=== PATIENT | female | born 1995 ===

== ENCOUNTER 2021-02-23 06:02 | Outpatient (REF) | payer MEDICAID, SELFPAY ==
[2021-02-23 08:33] LABS: MANUAL DIFF FLAG NO
[2021-02-23 08:44] LABS: Basophils Absolute Auto 0.1 X10*3/uL (0.0-0.2); Basophils Percent Auto 0.4 % (0-2); Eosinophils Absolute Auto 0.2 X10*3/uL (0.0-0.4); Eosinophils Percent Auto 1.8 % (0-4); Hematocrit 43.7 % (37-47); Hemoglobin 14.4 g/dl (12.0-16.0); Imm Gran Abs Auto 0.05 X10*3/uL (0.00-0.03); Imm Gran Pct Auto 0.4 % (0.0-0.4); Lymphocytes Absolute Auto 4.1 X10*3/uL (1.2-4.9); Lymphocytes Percent Auto 31.8 % (20-40); Mean Corpuscular Hemoglobin 28.4 pg (27.0-33.0); Mean Corpuscular Volume 86.2 fL (80-98); Mean Platelet Volume 9.7 fL (9.4-12.3); Monocytes Absolute Auto 0.8 X10*3/uL (0.1-1.2); Monocytes Percent Auto 6.3 % (2-11); Neutrophils Absolute Auto 7.7 X10*3/uL (2.0-8.3); Neutrophils Percent Auto 59.3 % (45-73); Platelet Count 345 X10*3/uL (160-400); Red Blood Count 5.07 X10*6/uL (4.20-5.50); Red Cell Distribution Width 13.4 % (11.0-16.0)
[2021-02-23 09:03] LABS: Alanine Aminotransferase 10 U/L (0-31); Albumin Level 3.8 g/dL (3.5-5.0); Alkaline Phosphatase 80 U/L (39-117); Anion Gap 16 (12-20); Aspartate Amino Transferase 13 U/L (5-31); Bilirubin Total 1.5 mg/dL (0.0-1.0); Blood Urea Nitrogen 10 mg/dL (9-16); Calcium 9.1 mg/dL (8.4-10.2); Carbon Dioxide 22 mmol/L (22-29); Chloride 103 mmol/L (96-108); Cholesterol 321 mg/dL; Estimated Glomerular Filt Rate > 60; Glucose Fasting 75 mg/dL (60-99); HDL Cholesterol 43 mg/dL; LDL Cholesterol Calculated 251 mg/dl; Potassium 3.8 mmol/L (3.3-5.1); Sodium 137 mmol/L (135-145); Total Protein 6.8 g/dL (6.5-8.0); Triglycerides 135 mg/dL
[2021-02-23 09:25] LABS: Free T4 (Free Thyroxine) 1.11 ng/dL (0.71-1.85); Thyroid Stimulating Hormone 1.89 uIU/mL (0.32-4.0)
== END 2021-02-23 06:03 | disposition home or self-care (01) ==
LOC: HO.LAB 06:02
PROVIDERS: Visit Provider Internal Medicine
DX: E78.00 Pure hypercholesterolemia, unspecified (principal); R63.5 Abnormal weight gain; J30.1 Allergic rhinitis due to pollen; E55.9 Vitamin D deficiency, unspecified
CPT/HCPCS: 36415; 80053; 80061; 82306; 84439; 84443; 85025

== ENCOUNTER 2021-12-01 06:39 | Outpatient (REF) | payer MEDICAID, SELFPAY ==
[2021-12-01 06:52] LABS: MANUAL DIFF FLAG NO
[2021-12-01 07:21] LABS: Basophils Absolute Auto 0.1 X10*3/uL (0.0-0.2); Basophils Percent Auto 0.4 % (0-2); Eosinophils Absolute Auto 0.3 X10*3/uL (0.0-0.4); Eosinophils Percent Auto 2.4 % (0-4); Hematocrit 44.2 % (37.0-47.0); Hemoglobin 14.5 g/dl (12.0-16.0); Imm Gran Abs Auto 0.06 X10*3/uL (0.00-0.03); Imm Gran Pct Auto 0.4 % (0.0-0.4); Lymphocytes Absolute Auto 4.4 X10*3/uL (1.2-4.9); Lymphocytes Percent Auto 31.3 % (20-40); Mean Corpuscular HGB Conc 32.8 g/dl (31.0-35.0); Mean Corpuscular Hemoglobin 27.9 pg (27.0-33.0); Mean Corpuscular Volume 85.2 fL (80.0-98.0); Mean Platelet Volume 9.7 fL (9.4-12.3); Neutrophils Absolute Auto 8.2 x10*3/uL (2.0-8.3); Neutrophils Percent Auto 58.5 % (45-73); Platelet Count 362 X10*3/uL (160-400); Red Blood Count 5.19 X10*6/uL (4.20-5.50); Red Cell Distribution Width 13.7 % (11.0-16.0); White Blood Count 13.9 X10*3/uL (4.8-10.8)
[2021-12-01 07:48] LABS: Alanine Aminotransferase 12 U/L (0-31); Albumin Level 3.8 g/dL (3.5-5.0); Alkaline Phosphatase 70 U/L (39-117); Anion Gap 12 (12-20); Aspartate Amino Transferase 12 U/L (5-31); Bilirubin Total 1.1 mg/dL (0.0-1.0); Blood Urea Nitrogen 15 mg/dL (9-16); Calcium 9.4 mg/dL (8.4-10.2); Carbon Dioxide 25 mmol/L (22-29); Chloride 103 mmol/L (96-108); Cholesterol 313 mg/dL; Estimated Glomerular Filt Rate > 60; Glucose Fasting 91 mg/dL (60-99); HDL Cholesterol 41 mg/dL; LDL Cholesterol Calculated 238 mg/dl; Potassium 4.1 mmol/L (3.3-5.1); Sodium 136 mmol/L (135-145); Total Protein 6.8 g/dL (6.5-8.0); Triglycerides 171 mg/dL
[2021-12-01 08:09] LABS: Thyroid Stimulating Hormone 1.79 uIU/mL (0.32-4.0)
[2021-12-01 08:46] LABS: Appearance Urine CLEAR; Color Urine YELLOW; Glucose Urine UA NEG (NEG); Leukocyte Esterase Urine NEG (NEG); Nitrite Urine NEG (NEG); Specific Gravity - Urine >= 1.030 (1.005-1.025); Urine Blood NEG (NEG); Urine Ketones 5 MG/DL (NEG); Urine Protein NEG (NEG-TRACE)
== END 2021-12-01 06:40 | disposition home or self-care (01) ==
LOC: HO.LAB 06:39
PROVIDERS: PCP Internal Medicine; Visit Provider Internal Medicine
DX: E78.00 Pure hypercholesterolemia, unspecified (principal); E55.9 Vitamin D deficiency, unspecified
CPT/HCPCS: 36415; 80053; 80061; 81003; 82306; 84443; 85025

== ENCOUNTER 2022-04-13 16:08 | Outpatient (REF) | payer MEDICAID, SELFPAY ==
[2022-04-13 16:23] LABS: MANUAL DIFF FLAG NO
[2022-04-13 17:30] LABS: Basophils Absolute Auto 0.1 X10*3/uL (0.0-0.2); Basophils Percent Auto 0.5 % (0-2); Eosinophils Absolute Auto 0.2 X10*3/uL (0.0-0.4); Eosinophils Percent Auto 1.7 % (0-4); Hematocrit 45.9 % (37.0-47.0); Hemoglobin 15.1 g/dl (12.0-16.0); Imm Gran Abs Auto 0.06 X10*3/uL (0.00-0.03); Imm Gran Pct Auto 0.5 % (0.0-0.4); Lymphocytes Absolute Auto 4.1 X10*3/uL (1.2-4.9); Lymphocytes Percent Auto 31.1 % (20-40); Mean Corpuscular HGB Conc 32.9 g/dl (31.0-35.0); Mean Corpuscular Hemoglobin 28.1 pg (27.0-33.0); Mean Corpuscular Volume 85.5 fL (80.0-98.0); Mean Platelet Volume 9.7 fL (9.4-12.3); Monocytes Absolute Auto 0.8 X10*3/uL (0.1-1.2); Monocytes Percent Auto 6.4 % (2-11); Neutrophils Absolute Auto 7.9 x10*3/uL (2.0-8.3); Neutrophils Percent Auto 59.8 % (45-73); Platelet Count 403 X10*3/uL (160-400); Red Blood Count 5.37 X10*6/uL (4.20-5.50); Red Cell Distribution Width 13.8 % (11.0-16.0); White Blood Count 13.1 X10*3/uL (4.8-10.8)
[2022-04-13 17:41] LABS: Appearance Urine CLEAR; Color Urine YELLOW; Glucose Urine UA NEG (NEG); Leukocyte Esterase Urine 2+ (NEG); Nitrite Urine NEG (NEG); Specific Gravity - Urine >= 1.030 (1.005-1.025); Urine Blood NEG (NEG); Urine Ketones NEG (NEG); Urine Protein NEG (NEG-TRACE)
[2022-04-13 17:58] LABS: Alanine Aminotransferase 21 U/L (0-31); Albumin Level 3.7 g/dL (3.5-5.0); Alkaline Phosphatase 84 U/L (39-117); Anion Gap 14 (12-20); Aspartate Amino Transferase 15 U/L (5-31); Bilirubin Total 1.2 mg/dL (0.0-1.0); Blood Urea Nitrogen 9 mg/dL (9-16); C Reactive Protein 0.39 mg/dL (< or = 0.50); Calcium 9.7 mg/dL (8.4-10.2); Carbon Dioxide 26 mmol/L (22-29); Chloride 104 mmol/L (96-108); Estimated Glomerular Filt Rate > 60; Glucose Random 95 mg/dL (60-115); Lipase 7 U/L (8-78); Potassium 4.7 mmol/L (3.3-5.1); Sodium 139 mmol/L (135-145); Total Protein 6.8 g/dL (6.5-8.0)
[2022-04-13 18:01] LABS: Bacteria Urine 3+ /LPF; RBC Urine 0 /HPF (0); Squamous Epithelial Cell Urine 3+ /LPF
[2022-04-13 18:07] LABS: Influenza A PCR NEGATIVE (Negative); Influenza B PCR NEGATIVE (Negative); Resp Syncy Virus RNA Qual PCR NEGATIVE (Negative); SARS COV2 PCR INHOUSE NEGATIVE (Negative)
== END 2022-04-13 16:09 | disposition home or self-care (01) ==
LOC: HO.LAB 16:08
PROVIDERS: PCP Internal Medicine; Visit Provider Internal Medicine
DX: Z20.822 Contact with and (suspected) exposure to COVID-19 (principal); B34.9 Viral infection, unspecified; E78.00 Pure hypercholesterolemia, unspecified; R21 Rash and other nonspecific skin eruption; R25.2 Cramp and spasm; R10.9 Unspecified abdominal pain
CPT/HCPCS: 0241U; 80053; 81001; 83690; 85025; 86140; 87086

== ENCOUNTER 2022-04-17 06:36 | Outpatient (REF) | payer MEDICAID, SELFPAY ==
[2022-04-17 09:10] LABS: Appearance Urine CLOUDY; Color Urine YELLOW; Glucose Urine UA NEG (NEG); Leukocyte Esterase Urine 2+ (NEG); Nitrite Urine NEG (NEG); PH 5.5 (5.0-8.0); Specific Gravity - Urine >= 1.030 (1.005-1.025); UACC Culture Trigger YES; Urine Blood NEG (NEG); Urine Ketones NEG (NEG); Urine Protein TRACE MG/DL (NEG-TRACE)
[2022-04-17 09:29] LABS: RBC Urine 0 /HPF (0)
[2022-04-17 09:30] LABS: Amorphous Sediment Urine 1+ /LPF; Bacteria Urine 3+ /LPF; Squamous Epithelial Cell Urine 3+ /LPF
== END 2022-04-17 06:37 | disposition home or self-care (01) ==
LOC: HO.LAB 06:36
PROVIDERS: PCP Internal Medicine; Visit Provider Internal Medicine
DX: R30.0 Dysuria (principal)
CPT/HCPCS: 81001; 87086

== ENCOUNTER 2022-06-20 14:40 | Outpatient (REF) | payer MEDICAID, SELFPAY ==
[2022-06-20 16:05] LABS: Appearance Urine Cloudy; Color Urine Dark Yellow; Glucose Urine UA Negative (Negative); Leukocyte Esterase Urine Moderate (2+) (Negative); Nitrite Urine Negative (Negative); PH 5.5 (5.0-9.0); Specific Gravity - Urine >= 1.030 (1.005-1.025); Urine Blood Moderate (2+) (Negative); Urine Ketones Trace mg/dL (Negative); Urine Protein Trace mg/dL (Neg-Trace)
[2022-06-20 16:26] LABS: Bacteria Urine 3+ (None Seen); Hyaline Casts Urine 0-2 /LPF (0-2); WBC Urine 0-5 /HPF (0-5)
== END 2022-06-20 14:41 | disposition home or self-care (01) ==
LOC: HO.LAB 14:40
PROVIDERS: PCP Internal Medicine; Visit Provider Internal Medicine
DX: R30.0 Dysuria (principal)
CPT/HCPCS: 81001; 87086; 87088; 87186

== ENCOUNTER 2022-06-22 10:55 | Outpatient (REF) | payer MEDICAID, SELFPAY ==
--- NOTE | ~2022-06-22 | US_ITS ---
EXAMINATION: US RETROPERITONEAL COMPLETE (RENAL) CLINICAL INFORMATION: Right kidney pain. Right lower quadrant pain. COMPARISON: None TECHNIQUE: Real-time imaging of the kidneys and bladder. FINDINGS: RIGHT KIDNEY: 9.7 x 3.4 x 5.4 cm (SAG x AP x TRV). The kidney is normal in size, contour, and echogenicity. Renal cortical thickness is normal. No calculi or focal parenchymal lesions. No hydronephrosis. LEFT KIDNEY: 10.7 x 5.0 x 6.2 cm (SAG x AP x TRV). The kidney is normal in size, contour, and echogenicity. Renal cortical thickness is normal. No calculi or focal parenchymal lesions. No hydronephrosis. BLADDER: Well distended and normal. Bilateral ureteral jets are demonstrated. Prevoid bladder volume is 181 mL. Postvoid bladder volume is 8.1 mL. ADDITIONAL FINDINGS: Incidental finding of echogenic gallstone with acoustic shadowing. CBD is normal measuring 0.33 cm. The gallbladder wall thickness is 0.27 cm. US/US retroperitoneal comp IMPRESSION: Unremarkable renal ultrasound. Incidental finding of echogenic gallstone with minimal wall thickening.
== END 2022-06-22 10:56 | disposition home or self-care (01) ==
LOC: HO.HMGCX 10:55
PROVIDERS: PCP Internal Medicine; Visit Provider Internal Medicine
DX: R10.31 Right lower quadrant pain (principal)
CPT/HCPCS: 76770

== ENCOUNTER 2022-08-10 16:37 | Emergency (ER) | payer MEDICAID, SELFPAY ==
[2022-08-10 17:11] VITALS: BP 152/80; PULSE 69; RESP 18; TEMP 37; O2SAT 100; BMI 38.6
[2022-08-11 02:30] VITALS: BP 139/92; PULSE 66; RESP 16; TEMP 36.8; O2SAT 100
[2022-08-11 02:42] LABS: Appearance Urine Cloudy; Color Urine Dark Yellow; Glucose Urine UA Negative (Negative); Leukocyte Esterase Urine Trace (Negative); Nitrite Urine Negative (Negative); PH 5.5 (5.0-9.0); Specific Gravity - Urine >= 1.030 (1.005-1.025); UMIC TRIGGER UACC YES; Urine Blood Large (3+) (Negative); Urine Ketones Trace mg/dL (Negative); Urine Protein 30 (1+) mg/dL (Neg-Trace)
[2022-08-11 02:45] LABS: UPreg QC Valid YES; Urine Pregnancy NEGATIVE (NEGATIVE)
[2022-08-11 02:47] LABS: Bacteria Urine Trace (None Seen); Hyaline Casts Urine 0-2 /LPF (0-2); UACC Culture Trigger YES
[2022-08-11 02:48] LABS: MANUAL DIFF FLAG NO
[2022-08-11 02:50] LABS: Basophils Absolute Auto 0.1 X10*3/uL (0.0-0.2); Basophils Percent Auto 0.5 % (0-2); Eosinophils Absolute Auto 0.3 X10*3/uL (0.0-0.4); Eosinophils Percent Auto 3.6 % (0-4); Hematocrit 43.6 % (37.0-47.0); Hemoglobin 14.1 g/dl (12.0-16.0); Imm Gran Abs Auto 0.03 X10*3/uL (0.00-0.03); Imm Gran Pct Auto 0.3 % (0.0-0.4); Lymphocytes Absolute Auto 2.7 X10*3/uL (1.2-4.9); Mean Corpuscular HGB Conc 32.3 g/dl (31.0-35.0); Mean Corpuscular Hemoglobin 28.1 pg (27.0-33.0); Mean Corpuscular Volume 86.9 fL (80.0-98.0); Mean Platelet Volume 9.3 fL (9.4-12.3); Monocytes Absolute Auto 0.7 X10*3/uL (0.1-1.2); Monocytes Percent Auto 7.4 % (2-11); Neutrophils Absolute Auto 5.5 x10*3/uL (2.0-8.3); Neutrophils Percent Auto 59.2 % (45-73); Platelet Count 321 X10*3/uL (160-400); Red Blood Count 5.02 X10*6/uL (4.20-5.50); Red Cell Distribution Width 14.5 % (11.0-16.0); White Blood Count 9.2 X10*3/uL (4.8-10.8)
[2022-08-11 03:14] LABS: Alanine Aminotransferase 15 U/L (0-31); Albumin Level 3.6 g/dL (3.5-5.0); Alkaline Phosphatase 72 U/L (39-117); Anion Gap 16 (12-20); Aspartate Amino Transferase 13 U/L (5-31); Bilirubin Direct 0.4 mg/dL (0.0-0.5); Bilirubin Total 1.5 mg/dL (0.0-1.0); Blood Urea Nitrogen 11 mg/dL (9-16); Calcium 9.1 mg/dL (8.4-10.2); Carbon Dioxide 23 mmol/L (22-29); Chloride 104 mmol/L (96-108); Creatinine Clr Calc Pharmacy 143.6; Estimated Glomerular Filt Rate > 60; Glucose Random 104 mg/dL (60-115); Lipase < 4 U/L (8-78); Potassium 3.7 mmol/L (3.3-5.1); Sodium 139 mmol/L (135-145); Total Protein 6.6 g/dL (6.5-8.0)
[2022-08-11 04:33] VITALS: BP 137/91; PULSE 71; RESP 16; TEMP 36.9; O2SAT 99
--- NOTE | 2022-08-11 05:19 | ED_ITS ---
HPI - Female Genitourinary General Chief complaint: Urogenital-Female Stated complaint: Uterine prolapse Time Seen by Provider: 08/11/22 01:57 Source: patient Mode of arrival: ambulatory History of Present Illness HPI Narrative: 27-year-old female currently menstruating presents with concerns when she was standing in the shower she felt a ?mass? it is and become very concerned and thought that it was her uterus that was falling out. She denies any fever, chills and has had 1 child. Related Data Allergies Allergy/AdvReac Type Severity Reaction Status Date / Time cortisone Allergy Unknown Uncoded 11/27/18 00:00 flu shot Allergy Unknown Uncoded 11/27/18 00:00 latex Allergy Unknown Uncoded 11/27/18 00:00 Review of Systems Review of Systems: Pertinent positives and negatives as stated in HPI 10 point review of systems is otherwise negative. [facility] Past Medical History Source: nursing notes reviewed Social History Social History Advance Directives: No Advance Directives Information Provided: No Physical Exam Vital Signs: Vital Signs: Last Vital Signs Temp 98.4 F 08/11/22 04:33 Pulse 71 08/11/22 04:33 Resp 16 08/11/22 04:33 BP 137/91 H 08/11/22 04:33 Pulse Ox 99 08/11/22 04:33 O2 Del Method 08/11/22 04:33 BMI result Body Mass Index 38.6 VITAL SIGNS: Reviewed. GENERAL: Well developed, well nourished, in no acute distress. HEAD: Normocephalic/atraumatic EYES: PERRLA, EOMI EARS: Ext canals without abnormality OROPHARYNX: no oral lesions noted, posterior pharynx clear LUNGS: Normal breath sounds. No adventitious sounds or accessory muscle use. SpO2<99> CARDIOVASCULAR: Regular rate and rhythm without noted murmurs ABDOMEN: Soft, non-tender, non-distended with bowel sounds. PELVIC: There are no abnormal protrusions, on placement of speculum no cystocele rectocele is appreciated and cervix was well-visualized in anatomical location. MUSCULOSKELETAL: No tenderness, deformities, or effusions noted on gross inspection. EXTREMITIES: No cyanosis, clubbing or edema. SKIN: Inspection of the skin reveals no rashes NEUROLOGIC: Alert and oriented x 4. Strength and sensation to light touch were grossly intact x 4. Course Course Course Narrative: 27-year-old female with history and clinical presentation most consistent with likely grade 1 cystocele as there were no findings on the pelvic exam. On review of all investigations there were no acute findings and patient was reassured and provided with a referral to follow-up with gynecology. She is otherwise discharged home in stable condition. MDM - Female Genitourinary Lab Data Result diagrams: 08/11/22 02:44 08/11/22 02:44 Labs: Lab Results 08/11/22 08/11/22 08/11/22 Range/Units 02:33 02:33 02:44 WBC 9.2 (4.8-10.8) X10*3/uL RBC 5.02 (4.20-5.50) X10*6/uL Hgb 14.1 (12.0-16.0) g/dl Hct 43.6 (37.0-47.0) % MCV 86.9 (80.0-98.0) fL MCH 28.1 (27.0-33.0) pg MCHC 32.3 (31.0-35.0) g/dl RDW 14.5 (11.0-16.0) % Plt Count 321 (160-400) X10*3/uL MPV 9.3 L (9.4-12.3) fL Immature Gran % (Auto) 0.3 (0.0-0.4) % Neut % (Auto) 59.2 (45-73) % Lymph % (Auto) 29.0 (20-40) % [place] % (Auto) 7.4 (2-11) % Eos % (Auto) 3.6 (0-4) % Baso % (Auto) 0.5 (0-2) % Lymph # (Auto) 2.7 (1.2-4.9) X10*3/uL [place] # (Auto) 0.7 (0.1-1.2) X10*3/uL Eos # (Auto) 0.3 (0.0-0.4) X10*3/uL Baso # (Auto) 0.1 (0.0-0.2) X10*3/uL Abs Immat Gran (auto) 0.03 (0.00-0.03) X10*3/uL Absolute Neuts (auto) 5.5 (2.0-8.3) x10*3/uL Absolute Nucleated RBC 0.000 (0.0-0.012) X10*3/uL Nucleated RBC % (auto) 0.0 (0.0-0.2) /100WBC Sodium (135-145) mmol/L Potassium (3.3-5.1) mmol/L Chloride (96-108) mmol/L Carbon Dioxide (22-29) mmol/L Anion Gap (12-20) BUN (9-16) mg/dL Creatinine (0.5-1.4) mg/dL Estim Creat Clear Calc Estimated GFR Random Glucose (60-115) mg/dL Calcium (8.4-10.2) mg/dL Total Bilirubin (0.0-1.0) mg/dL Direct Bilirubin (0.0-0.5) mg/dL AST (5-31) U/L ALT (0-31) U/L Alkaline Phosphatase (39-117) U/L Total Protein (6.5-8.0) g/dL Albumin (3.5-5.0) g/dL Lipase (8-78) U/L Urine Color Dark Yellow Urine Appearance Cloudy Urine pH 5.5 (5.0-9.0) Ur Specific [place] >= 1.030 H (1.005-1.025) Urine Protein 30 (1+) H (Neg-Trace) mg/dL Urine Glucose (UA) Negative (Negative) mg/dL Urine Ketones Trace (Negative) mg/dL Urine Blood Large (3+) H (Negative) Urine Nitrite Negative (Negative) Ur Leukocyte Esterase Trace H (Negative) Urine RBC 6-10 H (0-2) /HPF Urine WBC 6-10 H (0-5) /HPF Ur Squamous Epith Cells 11-20 (0-2) /HPF Urine Bacteria Trace (None Seen) Hyaline Casts 0-2 (0-2) /LPF Urine Test NEGATIVE (NEGATIVE) 08/11/22 Range/Units 02:44 WBC (4.8-10.8) X10*3/uL RBC (4.20-5.50) X10*6/uL Hgb (12.0-16.0) g/dl Hct (37.0-47.0) % MCV (80.0-98.0) fL MCH (27.0-33.0) pg MCHC (31.0-35.0) g/dl RDW (11.0-16.0) % Plt Count (160-400) X10*3/uL MPV (9.4-12.3) fL Immature Gran % (Auto) (0.0-0.4) % Neut % (Auto) (45-73) % Lymph % (Auto) (20-40) % [place] % (Auto) (2-11) % Eos % (Auto) (0-4) % Baso % (Auto) (0-2) % Lymph # (Auto) (1.2-4.9) X10*3/uL [place] # (Auto) (0.1-1.2) X10*3/uL Eos # (Auto) (0.0-0.4) X10*3/uL Baso # (Auto) (0.0-0.2) X10*3/uL Abs Immat Gran (auto) (0.00-0.03) X10*3/uL Absolute Neuts (auto) (2.0-8.3) x10*3/uL Absolute Nucleated RBC (0.0-0.012) X10*3/uL Nucleated RBC % (auto) (0.0-0.2) /100WBC Sodium 139 (135-145) mmol/L Potassium 3.7 D (3.3-5.1) mmol/L Chloride 104 (96-108) mmol/L Carbon Dioxide 23 (22-29) mmol/L Anion Gap 16 (12-20) BUN 11 (9-16) mg/dL Creatinine 0.69 (0.5-1.4) mg/dL Estim Creat Clear Calc 143.6 Estimated GFR > 60 Random Glucose 104 (60-115) mg/dL Calcium 9.1 D (8.4-10.2) mg/dL Total Bilirubin 1.5 H (0.0-1.0) mg/dL Direct Bilirubin 0.4 (0.0-0.5) mg/dL AST 13 (5-31) U/L ALT 15 (0-31) U/L Alkaline Phosphatase 72 (39-117) U/L Total Protein 6.6 (6.5-8.0) g/dL Albumin 3.6 (3.5-5.0) g/dL Lipase < 4 L (8-78) U/L Urine Color Urine Appearance Urine pH (5.0-9.0) Ur Specific [place] (1.005-1.025) Urine Protein (Neg-Trace) mg/dL Urine Glucose (UA) (Negative) mg/dL Urine Ketones (Negative) mg/dL Urine Blood (Negative) Urine Nitrite (Negative) Ur Leukocyte Esterase (Negative) Urine RBC (0-2) /HPF Urine WBC (0-5) /HPF Ur Squamous Epith Cells (0-2) /HPF Urine Bacteria (None Seen) Hyaline Casts (0-2) /LPF Urine Test (NEGATIVE) Discharge Plan Discharge Clinical Impression: Cystocele Patient Disposition: Home, Self-Care Instructions: Cystocele (ED) Additional Instructions: You have been provided with a referral to follow-up with gynecology. Return to the ER for worsening symptoms. Referrals: Shaw Rushing MD [Primary Care Provider] - Saad Mcclelland MD [Physician] - (Patient with possible cystocele)
== END 2022-08-11 06:10 | disposition home or self-care (01) ==
PROVIDERS: Emergency Provider Student in an Organized Health Care Education/Training Program; PCP Internal Medicine
DX: N81.10 Cystocele, unspecified (principal)
CPT/HCPCS: 36415; 80053; 81001; 81025; 82248; 83690; 85025; 87086; 99283

== ENCOUNTER 2022-08-21 13:30 | Outpatient (REF) | payer BC, MEDICAID, SELFPAY ==
[2022-08-22 13:07] LABS: BV Int Neg Control Negative (Negative); BV Int Pos Control Positive (Positive)
[2022-08-22 14:31] LABS: CT PCR INVALID (Not Detect.)
[2022-08-22 14:32] LABS: NG PCR INVALID (Not Detect.)
== END 2022-08-21 13:31 | disposition home or self-care (01) ==
LOC: HO.LNP 13:30
PROVIDERS: Visit Provider Advanced Practice Midwife
DX: Z12.4 Encounter for screening for malignant neoplasm of cervix (principal); Z11.3 Encounter for screening for infections with a predominantly sexual mode of transmission; N89.8 Other specified noninflammatory disorders of vagina
CPT/HCPCS: 87480; 87491; 87510; 87591; 87660; 88142

== ENCOUNTER 2022-09-21 15:25 | Outpatient (REF) | payer MEDICAID, SELFPAY ==
--- NOTE | ~2022-09-21 | US_ITS ---
EXAMINATION: US PELVIS CLINICAL INFORMATION: Pelvic and perineal pain. COMPARISON : None. TECHNIQUE: Ultrasound of the pelvis is performed using both transabdominal and transvaginal transducers along with Doppler. Transvaginal imaging is performed due to inadequate visualization transabdominally. FINDINGS: Uterus: The uterus is anteverted and measures 7.10 x 3.3 x 3.7 cm. The double wall endometrial thickness is 0.62 cm. The uterus is smooth in contour and has normal myometrial echogenicity. No visible fibroid. Small nabothian cysts seen in the cervix. Adnexa: Both ovaries are visualized. There is normal color flow to the adnexa. There is no ovarian torsion. There is no pelvic ascites or fluid collection. Right ovary measures 3.64 x 2.27 x 2.47 cm and volume 10.69 mL. There is a complex lesion measuring 1.7 x 1.4 x 1.5 cm, likely corpus luteal cyst. There is small amount of free fluid surrounding the right ovary. Left ovary measures 2.61 x 1.861 98 cm and volume 5.03 seen. No focal lesion seen. There is no free fluid in the cul-de-sac. US/US pelvic and transvaginal IMPRESSION: 1. Small corpus luteal cyst right ovary. 2. The left ovary and uterus is unremarkable. 3. There is small amount of free fluid surrounding the right ovary.
== END 2022-09-21 15:26 | disposition home or self-care (01) ==
LOC: HO.HMGCX 15:25
PROVIDERS: PCP Internal Medicine; Visit Provider Advanced Practice Midwife
DX: R10.2 Pelvic and perineal pain (principal)
CPT/HCPCS: 76830; 76856

== ENCOUNTER 2022-10-09 11:24 | Outpatient (REF) | payer MEDICAID, SELFPAY ==
[2022-10-10 06:35] LABS: CT PCR NOT DETECTED (Not Detect.); NG PCR NOT DETECTED (Not Detect.)
== END 2022-10-09 11:25 | disposition home or self-care (01) ==
LOC: HO.LNP 11:24
PROVIDERS: PCP Internal Medicine; Visit Provider Advanced Practice Midwife
DX: N83.291 Other ovarian cyst, right side (principal); R39.15 Urgency of urination; N39.3 Stress incontinence (female) (male); Z71.2 Person consulting for explanation of examination or test findings; Z20.2 Contact with and (suspected) exposure to infections with a predominantly sexual mode of transmission
CPT/HCPCS: 87491; 87591; 99212

== ENCOUNTER 2022-10-31 15:54 | Outpatient (REF) | payer MEDICAID, SELFPAY ==
--- NOTE | ~2022-10-31 | US_ITS ---
EXAMINATION: US THYROID CLINICAL INFORMATION: Localized swelling. COMPARISON: None. TECHNIQUE: Linear transducer grayscale and color Doppler examination with attention to the region of the thyroid. FINDINGS: SIZE: Measurements of the thyroid lobes and nodules are given in sagittal, anteroposterior and transverse dimensions respectively. Right Thyroid Lobe: 5.5 x 2.1 x 1.6 cm, volume 10.0 mL. Parenchyma: The gland echotexture is heterogeneous. Thyroid vascularity is increased. Left Thyroid Lobe: 7.0 x 3.2 x 1.9 cm, volume 22 mL. Parenchyma: The gland echotexture is heterogeneous. Thyroid vascularity is increased. Isthmus: 0.5 cm in maximum AP dimension. Estimated total number of nodules greater than or equal to 1 cm: 5. Needle Loom Setter nodules are described as follows: 1. Location: Isthmus. Size: 3.2 x 1.9 x 3.2 cm, volume 10.2 mL. Nodule characteristics: Composition: Solid (2). Echogenicity: Isoechoic (1). Shape: Not taller than wide (0). Margins: Smooth (0). Echogenic Foci: None (0). ACR TI-RADS total points: 3. ACR TI-RADS category: 3. 2. Location: Right inferior. Size: 1.0 x 0.7 x 0.7 cm, volume 0.2 mL. Nodule characteristics: Composition: Solid/almost completely solid (2). Echogenicity: Isoechoic (1). Shape: Not taller than wide (0). Margins: Lobulated (2). Echogenic Foci: None (0). ACR TI-RADS total points: 5. ACR TI-RADS category: 4. 3. Location: Right medial inferior. Size: 1.6 x 1.1 x 1.5 cm, volume 1.4 mL. Nodule characteristics: Composition: Solid (2). Echogenicity: Isoechoic (1). Shape: Not taller than wide (0). Margins: Ill-defined (0). Echogenic Foci: None (0). ACR TI-RADS total points: 3 ACR TI-RADS category: 3 4. Location: Left superior. Size: 1.3 x 0.9 x 1.5 cm, volume 0.9 mL. Nodule characteristics: Composition: Solid (2). Echogenicity: Isoechoic (1). Shape: Not taller than wide (0). Margins: Lobulated (2). Echogenic Foci: None (0). ACR TI-RADS total points: 5. ACR TI-RADS category: 4. 5. Location: Left inferior. Size: 4.3 x 2.7 x 3.1 cm, volume 18.3 mL. Nodule characteristics: Composition: Solid (2). Echogenicity: Isoechoic (1). Shape: Not taller than wide (0). Margins: Ill-defined (0). Echogenic Foci: Macrocalcifications (1). ACR TI-RADS total points: 4. ACR TI-RADS category: 4. NODES: No lymphadenopathy is seen in the tissue surrounding the thyroid gland. ADDITIONAL FINDINGS: There is isoechoic to hypoechoic lesion inferior to right thyroid lobe with minimal vascularity measuring 1.0 x 0.5 x 0.6 cm. US/US thyroid IMPRESSION: 1. Multiple bilateral thyroid nodules. The largest nodule measures 4.3 cm in the lower pole left lobe. Based on TI-RADS scale, the largest 2 nodules in the isthmus and left lobe lower pole nodule should be biopsied. 2. TR1 (0 point) and TR 2 (2 points): 3. TR4 (4-6 points): FNA if more than or equal to 1.5 cm in maximum dimension, followup ultrasound in 1, 2, 3 and 5 years if 1 to 1.4 cm in maximum dimension. 4. TR5 (more than or equal to 7 points): FNA if more than or equal to 1 cm in maximum dimension, followup ultrasound every year for 5 years if 0.5 to 0.9 cm in maximum dimension.
== END 2022-10-31 15:55 | disposition home or self-care (01) ==
LOC: HO.US 15:54
PROVIDERS: PCP Internal Medicine; Visit Provider Internal Medicine
DX: R22.1 Localized swelling, mass and lump, neck (principal)
CPT/HCPCS: 76536

== ENCOUNTER → 2022-11-28 09:58 | Outpatient (BNVA) | payer MEDICAID, SELFPAY | PROVIDERS: PCP Internal Medicine; Visit Provider Internal Medicine | DX: E04.2 Nontoxic multinodular goiter (principal); E78.5 Hyperlipidemia, unspecified; E55.9 Vitamin D deficiency, unspecified | CPT/HCPCS: 99202 ==

== ENCOUNTER 2022-11-29 08:01 | Outpatient (REF) | payer MEDICAID, SELFPAY ==
[2022-11-29 09:47] LABS: Alanine Aminotransferase 18 U/L (0-31); Albumin Level 3.4 g/dL (3.5-5.0); Alkaline Phosphatase 62 U/L (39-117); Anion Gap 14 (12-20); Aspartate Amino Transferase 17 U/L (5-31); Bilirubin Total 1.4 mg/dL (0.0-1.0); Blood Urea Nitrogen 10 mg/dL (9-16); Calcium 9.1 mg/dL (8.4-10.2); Carbon Dioxide 22 mmol/L (22-29); Chloride 107 mmol/L (96-108); Cholesterol 317 mg/dL; Estimated Glomerular Filt Rate > 60; Glucose Random 106 mg/dL (60-115); HDL Cholesterol 40 mg/dL; LDL Cholesterol Calculated 241 mg/dl; Phosphorus 2.7 mg/dL (2.7-4.5); Potassium 4.4 mmol/L (3.3-5.1); Sodium 139 mmol/L (135-145); Total Protein 6.2 g/dL (6.5-8.0); Triglycerides 183 mg/dL
[2022-11-29 09:52] LABS: Free T4 (Free Thyroxine) 0.99 ng/dL (0.71-1.85); Thyroid Stimulating Hormone 0.98 uIU/mL (0.32-4.0); Vitamin D 25-OH Total 30.4 ng/mL (>30)
[2022-11-30 10:04] LABS: BV Int Neg Control Negative (Negative); BV Int Pos Control Positive (Positive)
[2022-12-03 13:14] LABS: PTHI 36 pg/mL (16-77)
[2022-12-06 20:59] LABS: Apolipoprotein B 187 mg/dL (<90); LDL Cholesterol Direct 264 mg/dL (<100); Triiodothyronine T3 Total 149 ng/dL (76-181)
== END 2022-11-29 08:02 | disposition home or self-care (01) ==
LOC: HO.LAB 08:01
PROVIDERS: Urology; PCP Internal Medicine; Visit Provider Internal Medicine
DX: E04.2 Nontoxic multinodular goiter (principal); E55.9 Vitamin D deficiency, unspecified; E78.5 Hyperlipidemia, unspecified; R32 Unspecified urinary incontinence; R35.0 Frequency of micturition; N39.0 Urinary tract infection, site not specified; N76.0 Acute vaginitis; N81.89 Other female genital prolapse
CPT/HCPCS: 36415; 51701; 51798; 80053; 80061; 82172; 82306; 83721; 83970; 84100; 84439; 84443; 84480; 87480; 87510; 87660; 99202

== ENCOUNTER 2022-12-13 16:09 | Outpatient (REF) | payer MEDICAID, SELFPAY ==
--- NOTE | ~2022-12-13 | US_ITS ---
EXAMINATION: US PELVIS CLINICAL INFORMATION: Right-sided ovarian cyst. COMPARISON: Pelvic ultrasound 09/21/2022. TECHNIQUE: Ultrasound of the pelvis is performed using both transabdominal and transvaginal transducers along with Doppler. Transvaginal imaging is performed due to inadequate visualization transabdominally. FINDINGS: UTERUS: The uterus is anteverted and measures 6.9 x 3.0 x 4.0 cm. The double wall endometrial thickness is 8 mm. The uterus is smooth in contour and has normal myometrial echogenicity. No visible fibroid. Nabothian cysts are present in the cervix. ADNEXA: Both ovaries are visualized. There is normal color flow to the adnexa. There is no ovarian torsion. There is no pelvic ascites or fluid collection. Right ovary measures 1.9 x 1.7 x 2.1 cm for a volume of 3.6 mL. Left ovary measures 2.1 x 1.9 x 2.3 cm for a volume of 4.8 mL and contains a normal-appearing 1.1 x 1.3 x 1.3 cm corpus luteum cyst. US/US pelvic and transvaginal IMPRESSION: Negative exam.
== END 2022-12-13 16:10 | disposition home or self-care (01) ==
LOC: HO.US 16:09
PROVIDERS: Visit Provider Advanced Practice Midwife
DX: N83.291 Other ovarian cyst, right side (principal)
CPT/HCPCS: 76830; 76856

== ENCOUNTER 2022-12-14 10:01 | Outpatient (REF) | payer MEDICAID, SELFPAY ==
--- NOTE | ~2022-12-14 | CT_ITS ---
EXAMINATION: CT SOFT TISSUE NECK WITHOUT CONTRAST CLINICAL INFORMATION: Nontoxic, multinodular goiter. COMPARISON: Thyroid ultrasound from 10/31/2022. TECHNIQUE: Multidetector helical imaging was performed in the axial plane without intravenous contrast. Multiple axial reformats and coronal/sagittal reconstructions were created the technologist workstation for review. This CT examination was performed using dose optimization techniques as appropriate, variously including the following: *Automated exposure control. *Adjustment of mA and/or kV according to patient size (this includes techniques or standardized protocols for targeted exams where dose is matched to indication/reason for exam; i.e. extremities or head). *Use of iterative reconstruction technique. DLP: 427 mGy-cm FINDINGS: Correlating with findings on recent ultrasound, there is a prominent heterogeneous mass lesion centered in the thyroid isthmus and left thyroid lobe, extending into the upper mediastinum, measuring up to 3.8 x 2.7 x 6 cm. Few coarse calcifications within this lesion. Additional heterogeneous soft tissue masses within the anterior mediastinum, measuring up to 3.6 x 2.3 x 2.9 cm centrally and 2.6 x 1.6 x 2.1 cm on the right at the thoracic inlet. Nonspecific 1.8 cm right level Ib lymph node with maintained reniform morphology. Nonspecific 1.5 cm left level IIa lymph node and bilateral 1 cm level III lymph nodes. No significant cutaneous thickening or subcutaneous inflammation. No discrete fluid collection within the deep tissues of the neck. The premaxillary, retromaxillary, pterygopalatine fossa, orbital apical, parapharyngeal, and prelaryngeal adipose tissue is maintained. Normal appearance of the parotid, submandibular, and thyroid glands. Scattered subcentimeter lymph nodes bilaterally, none of which are pathologically enlarged. Normal mucosal contours of the pharynx and larynx. Normal appearance of the hyoid bone, thyroid cartilage, or cartilaginous trachea. The airways remains widely patent. No radiopaque foreign bodies. The atlantooccipital and atlantoaxial articulations remain well aligned. Straightening of the normal cervical lordosis. Otherwise, there is anatomic alignment of the vertebral bodies and posterior elements. No evidence of acute fracture or subluxation of the cervical spine. The vertebral body heights are maintained. Mild degenerative disc disease from C3-C7. No demonstrated suspicious lytic or sclerotic osseous lesions. There is no prevertebral soft tissue swelling. The visualized portion of the skull base is without significant abnormalities. The visualized paranasal sinuses are clear. The mastoid air cells and middle ear cavities are clear. No demonstrated significant periapical odontogenic disease. CT Upper Chest: The visualized lung apices and upper mediastinum are within normal limits. CT/CT soft tissue neck wo IV con IMPRESSION: 1. Correlating with findings on recent ultrasound, there is a prominent 6 cm heterogeneous mass centered in the thyroid isthmus and left thyroid lobe, extending into the upper mediastinum. Additional heterogeneous soft tissue masses within the anterior mediastinum. Findings are suspicious for neoplastic process. Further characterization with tissue sampling is recommended. 2. Nonspecific mildly prominent right level Ib, left level IIA, and bilateral level III lymph nodes.
== END 2022-12-14 10:02 | disposition home or self-care (01) ==
LOC: HO.CT 10:01
PROVIDERS: PCP Internal Medicine; Visit Provider Internal Medicine
DX: E04.2 Nontoxic multinodular goiter (principal)
CPT/HCPCS: 70490

== ENCOUNTER → 2022-12-26 09:08 | Outpatient (BNVA) | payer MEDICAID, SELFPAY | PROVIDERS: PCP Internal Medicine; Visit Provider Advanced Practice Midwife | DX: Z71.2 Person consulting for explanation of examination or test findings (principal); N83.291 Other ovarian cyst, right side; N76.0 Acute vaginitis; B96.89 Other specified bacterial agents as the cause of diseases classified elsewhere; L72.9 Follicular cyst of the skin and subcutaneous tissue, unspecified | CPT/HCPCS: 99212 ==

== ENCOUNTER 2023-01-14 11:05 | Outpatient (REF) | payer MEDICAID, SELFPAY ==
[2023-01-14 13:40] LABS: MANUAL DIFF FLAG NO
[2023-01-14 13:58] LABS: Basophils Absolute Auto 0.1 X10*3/uL (0.0-0.2); Basophils Percent Auto 0.6 % (0-2); Eosinophils Absolute Auto 0.2 X10*3/uL (0.0-0.4); Eosinophils Percent Auto 1.6 % (0-4); Hematocrit 49.3 % (37.0-47.0); Imm Gran Abs Auto 0.05 X10*3/uL (0.00-0.03); Imm Gran Pct Auto 0.4 % (0.0-0.4); Lymphocytes Percent Auto 27.1 % (20-40); Mean Corpuscular HGB Conc 32.5 g/dl (31.0-35.0); Mean Corpuscular Hemoglobin 28.5 pg (27.0-33.0); Mean Corpuscular Volume 87.7 fL (80.0-98.0); Mean Platelet Volume 10.2 fL (9.4-12.3); Monocytes Absolute Auto 0.6 X10*3/uL (0.1-1.2); Monocytes Percent Auto 5.4 % (2-11); Neutrophils Absolute Auto 7.3 x10*3/uL (2.0-8.3); Neutrophils Percent Auto 64.9 % (45-73); Platelet Count 360 X10*3/uL (160-400); Red Blood Count 5.62 X10*6/uL (4.20-5.50); Red Cell Distribution Width 13.5 % (11.0-16.0); White Blood Count 11.2 X10*3/uL (4.8-10.8)
[2023-01-14 14:15] LABS: Alanine Aminotransferase 14 U/L (0-31); Albumin Level 3.8 g/dL (3.5-5.0); Alkaline Phosphatase 76 U/L (39-117); Anion Gap 13 (12-20); Aspartate Amino Transferase 12 U/L (5-31); Bilirubin Total 1.5 mg/dL (0.0-1.0); Blood Urea Nitrogen 13 mg/dL (9-16); C Reactive Protein 0.38 mg/dL (< or = 0.50); Calcium 9.4 mg/dL (8.4-10.2); Carbon Dioxide 25 mmol/L (22-29); Chloride 104 mmol/L (96-108); Estimated Glomerular Filt Rate > 60; Glucose Random 85 mg/dL (60-115); Lipase 8 U/L (8-78); Potassium 4.3 mmol/L (3.3-5.1); Sodium 138 mmol/L (135-145); Total Protein 6.8 g/dL (6.5-8.0)
== END 2023-01-14 11:06 | disposition home or self-care (01) ==
LOC: HO.10HDL 11:05
PROVIDERS: Visit Provider Internal Medicine
DX: I10 Essential (primary) hypertension (principal); K21.9 Gastro-esophageal reflux disease without esophagitis; R10.9 Unspecified abdominal pain; R63.4 Abnormal weight loss
CPT/HCPCS: 36415; 80053; 83690; 85025; 86140

== ENCOUNTER 2023-01-17 10:01 | Outpatient (REF) | payer MEDICAID, SELFPAY ==
--- NOTE | 2023-01-17 11:02 | P.BOP_ITS ---
Brief Operative Note Date of Service: 01/17/23 Pre-op diagnosis: This is doctor Nancy Farrell. This is an ultrasound-guided fine-needle aspiration report. Indication: Multinodular Thyroid Porcedure: Procedure was explained to the patient. Alternatives, the risk and benefits were discussed. Written consent was obtained. A time-out was also obtained. After sterile preparation, 1 ml of 1% lidocaine solution was applied subcutaneously for anesthetic effect. Then Fine-needle aspiration of a left mid pole 4.3 cm thyroid nodule was performed using direct ultrasound guidance to confirm accurate needle placement. Two aspirations were made using 27 gauge needles, and three aspirations were made using 25 guage needles. Samples were submitted for cytology. One pass was dedicated for [employer] sequencing bioinformatics developer testing. Our attention was then turned to the isthmus. Fine-needle aspiration of an isthmus 3.2 cm thyroid nodule was performed using direct ultrasound guidance to confirm accurate needle placement. Three aspirations were made using 25 gauge needles. Samples were submitted for cytology. One pass was dedicated for [employer] sequencing bioinformatics developer testing. Our attention was then turned to the right isthmus. Fine-needle aspiration of a right isthmus 1.6 cm thyroid nodule was performed using direct ultrasound guidance to confirm accurate needle placement. Three aspirations were made using 25 gauge needles. Samples were submitted for cytology. One pass was d edicated for [employer] sequencing bioinformatics developer testing. The patient tolerated the procedure well. Aftercare instructions were provided. Impression: Uncomplicated fine needle aspiration biopsy of a left mid pole 4.3 cm thyroid nodule, an isthmus 3.2 cm thyroid nodule and a right isthmus 1.6 cm thyroid nodule under ultrasound guidance. Surgeon: Nancy Farrell, DO Was an Financial Business Analyst used for this Procedure?: No Estimated blood loss (mL): 0
[2023-01-17] MEDS: Lidocaine HCl 1 % MPF 5 ML VIAL SUBCUT (12:21)
== END 2023-01-17 10:02 | disposition home or self-care (01) ==
LOC: HO.US 10:01
PROVIDERS: PCP Internal Medicine; Visit Provider Internal Medicine
DX: E04.2 Nontoxic multinodular goiter (principal)
CPT/HCPCS: 10005; 10006; 88172; 88173; 88177; 88305

== ENCOUNTER 2023-01-21 10:19 | Emergency (ER) | payer MEDICAID, SELFPAY ==
--- NOTE | ~2023-01-21 | CT_ITS ---
EXAMINATION: CT SOFT TISSUE NECK WITH CONTRAST CLINICAL INFORMATION: Swelling status post fine-needle biopsy of the thyroid gland. COMPARISON: Soft tissue neck CT scan 12/14/2022. TECHNIQUE: Following the intravenous administration of 100 mL of Omnipaque 350 intravenous contrast, helical imaging was performed in the axial plane with generation of coronal and sagittal reformatted images. This CT examination was performed using dose optimization techniques as appropriate, variously including the following: *Automated exposure control *Adjustment of mA and/or kV according to patient size (this includes techniques or standardized protocols for targeted exams where dose is matched to indication/reason for exam; i.e. extremities or head) *Use of iterative reconstruction technique DLP: 629. mGy-cm FINDINGS: There is a multinodular thyroid goiter with an associated retrosternal component , the size of which is grossly unchanged when compared to the prior soft tissue neck CT scan from 12/14/2022. The left ventral strap muscles are however slightly thickened. No discrete drainable fluid collection. There are a few somewhat prominent albeit otherwise nonspecific bilateral level II and III cervical lymph nodes, none of which demonstrate worrisome enhancement characteristics to suggest capsular invasion or central necrosis. No axillary adenopathy is visualized within the [id number] of this examination. Pharyngeal mucosal spaces are symmetric. Parapharyngeal and retromaxillary fat is preserved. Derrick Engineer spaces are symmetric. The parotid and submandibular glands are normal. The tongue base and epiglottis are normal. Preepiglottic fat is preserved. Glottic and subglottic airways are widely patent. Lung apices are clear. The aortic arch apex is normal. Cervical carotid and vertebral arteries are grossly patent. There is no acute osseous finding. Specifically no worrisome lytic or blastic osseous lesion. Grossly no evidence of spinal canal compromise. The skull base is intact. No mastoid or middle ear effusion. Limited visualization of the intracranial anatomy reveals no abnormal finding. 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 There is however asymmetric thickening of the left ventral strap muscles. No discrete drainable fluid collection or hematoma status post biopsy. There are a few somewhat prominent albeit otherwise nonspecific bilateral level II and III cervical lymph nodes, none of which demonstrate worrisome enhancement characteristics to suggest capsular invasion or central necrosis.
--- NOTE | ~2023-01-21 | XR_ITS ---
EXAMINATION: XR CHEST CLINICAL INFORMATION: Cough. COMPARISON: None available. TECHNIQUE: 2 views of the chest were obtained. FINDINGS: No significant abnormality is noted involving the heart, lungs, mediastinum, bony thorax or soft tissues. XR/XR chest 2V IMPRESSION: No acute cardiopulmonary process.
[2023-01-21 10:24] VITALS: BP 146/103; PULSE 99; RESP 18; TEMP 36.9; O2SAT 99; BMI 34.8
[2023-01-21 11:42] LABS: MANUAL DIFF FLAG NO
--- NOTE | 2023-01-21 11:51 | ED.GENADULT ---
HPI - General Adult General Chief complaint: General Medical Stated complaint: sore throat Time Seen by Provider: 01/21/23 10:38 Source: patient and RN notes reviewed Mode of arrival: ambulatory Limitations: no limitations History of Present Illness HPI narrative: This is a 27-year-old female, with a past medical history of multinodular thyroid, who presents emergency department today with complaints worsening neck pain since yesterday. Patient reports that on January 17 she had a fine-needle aspiration for her multi nodular thyroid. She reports that she had some soreness in her neck however reports that yesterday she woke up and the pain became more severe. She reports that she has associated trouble swallowing and cough with some green colored sputum. Patient denies any fevers, chills chest pain, shortness of breath, nausea, vomiting, or diarrhea. She reports that she had called her office equipment technician this morning in which directed to come to the emergency department for further evaluation. Per surgical report performed by Dr. Nancy Farrell, there were no complications during a fine-needle aspiration, and there were 9 needle aspirations in total made MD complaint: Sore throat/neck pain Onset (ago): day(s) Severity: moderate Quality: aching Pain Consistency: constant Relieving factors: none Exacerbating factors: none Associated symptoms: denies other symptoms Treatments prior to arrival: NSAID Related Data Home Medications Medication Instructions Recorded Confirmed buspirone 5 mg tablet 5 mg PO BID PRN 08/21/22 11/28/22 pantoprazole 20 mg tablet,delayed 40 mg PO DAILY 08/21/22 11/28/22 release Previous Rx's Medication Instructions Recorded vitamin with calcium 1 tab PO DAILY #30 tabs 08/21/22 no.72-iron 27 mg-folic acid 1 mg tablet ( Vitamins Plus Low Iron) atorvastatin 80 mg tablet 80 mg PO BEDTIME 30 days #30 tabs 11/29/22 nitrofurantoin macrocrystal 50 mg 50 mg PO BEDTIME use as directed 11/29/22 capsule (Macrodantin) post intercourse #45 caps oxybutynin chloride 5 mg 5 mg PO DAILY #90 tabs 11/29/22 tablet,extended release 24 hr metronidazole 0.75 % (37.5 mg/5 1 appful vaginal BEDTIME 7 days 12/03/22 gram) vaginal gel #70 grams metronidazole 500 mg tablet 500 mg PO TID 5 days #15 tabs 12/07/22 clindamycin HCl 300 mg capsule 300 mg PO TID 7 days #21 caps 01/21/23 fluconazole 150 mg tablet 150 mg PO ONCE #1 tab 01/21/23 (Diflucan) Allergies Allergy/AdvReac Type Severity Reaction Status Date / Time cortisone Allergy Unknown rash Uncoded 12/26/22 09:12 flu shot Allergy Unknown Hives Uncoded 12/26/22 09:12 latex Allergy Unknown Rash Uncoded 12/26/22 09:12 Review of Systems Review of Systems: Yes all other systems are reviewed and are negative [facility] Past Medical History Medical History (Updated 01/21/23 @ 14:50 by IVANIA Rockwell) Anxiety Asthma Corpus luteum cyst of right ovary Depression GERD (gastroesophageal reflux disease) HLD (hyperlipidemia) Mediastinal mass Multinodular thyroid Vitamin D deficiency Surgical History No pertinent past surgical history Family History Family History Mother Diabetes HTN (hypertension) Early menopause Father Diabetes Maternal Aunt Thyroid disease Social History Social History Household Members: Family Housing: House Alcohol intake: current Alcohol intake frequency: holidays/special occasions only Patient Tobacco Use Status: Current everyday Tobacco user Tobacco use type: Cigarette Cigarettes Per Day: 1 Years Smoked: 6 Substance Use Type: Marijuana Advance Directives: No Advance Directives Information Provided: No Current occupational status: employed 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 Oriented X3. No acute distress. Eyes: Pupils equal, round and reactive to light. ENT: Pharynx normal. Posterior oral pharynx is mildly erythematous, no tonsilar edema. Uvula is midline. No trismus, drooling or dysphonia. Neck: Supple, 2cm area of healing ecchymosis overlying anterior neck, just inferior to the cricoid, with no edema, fluctance or warmth. Anterior and posterior cervical chain lymphadenopathy noted. Neck is supple, but patient has tenderness throughout the anterior portion of her neck. No cervical midline spine tenderness. No nuchal rigidity. Tenderness with range of motion ROM of the neck, but ROM is full and intact. CVS: Normal heart rate and rhythm. Pulses normal. S1S2 regular. Respiratory: No respiratory distress. Breath sounds normal. Lungs clear to auscultation bilaterally. Abdomen: Soft and nontender. Skin: Skin warm and dry. Normal skin color. Normal skin turgor. No rashes. Extremities: No lower extremity edema. Neuro: Oriented X 3. No motor deficit. No sensory deficit. CN II-XII intact. Course Reevaluation(s) Reevaluation #1: CT neck revealed There is a multinodular thyroid goiter with an associated retrosternal component, the size of which is grossly unchanged when compared to prior imaging from 12/14/2022. There is however asymmetric thickening of the left ventral strap muscles. No discrete drainable fluid collection or hematoma status post biopsy. There are a few somewhat prominent albeit otherwise nonspecific bilateral level II and III cervical lymph nodes, none of which demonstrate worrisome enhancement characteristics to suggest capsular invasion or central necrosis. Labs with no leukocytosis, patient is afebrile, and all VSS. patient is COVID +. Given the level of her discomfort and asymmetric swelling on imaging, cannot rule out developing infection but there is no abscess seen on the CT scan today. Discussed case and findings with patient's office equipment technician, Dr. Nancy Farrell, who will follow up with her in office in 10 days. Informed that I will treat with Clindamycin to cover for both potential skin or oral kadi bacteria. Informed Dr. Nancy Farrell of plan, and no additional recommendations made. Discussed treatment plan with patient, and given red flags signs/symptoms of when to return. Patient understands and agrees with plan. Patient reports she often gets vaginal yeast infections with abx, prophlyaxis sent. Patient stable for discharge. Time: 14:33 Medications Administered Discontinued Medications Generic Name Dose Route Start Last Admin Trade Name Freq PRN Reason Stop Dose Admin Acetaminophen 975 mg 01/21/23 14:07 01/21/23 14:14 Acetaminophen 325 Mg Tablet PO 01/21/23 14:08 975 mg ONCE ONE Administration Iohexol 100 ml 01/21/23 13:16 01/21/23 13:16 Iohexol 350 Mg/Ml 100 Ml Infus..Btl IV 01/21/23 13:17 60 ml ONCE ONE Administration Medical Decision Making Medical Decision Making [facility] Narrative: 27 yo F, with a history of multinodular thyroid, who presents to the ER for complaints of sore throat and neck pain since yesterday. Had FNA thyroid on 01/17, had pain after procedure, but worsening pain yesterday. Reports some difficulty swallowing and tenderness to palpation. VSS. Viral panel, labs, CT neck w/ contrast ordered for further evaluation. Differential Diagnosis Differential Diagnoses: The differential diagnosis associated with the presentation includes abscess cellulitis pharyngitis tonsillitis URI Consult Healthcare Provider Management of the patient was discussed with: Telecommunication Tower Technician Dr. Nancy Farrell Lab Data [facility] Lab Attestation statement: I reviewed the patient's lab results. 01/21/23 11:30 01/21/23 11:30 Labs: Lab Results 01/21/23 01/21/23 01/21/23 Range/Units 11:30 11:30 11:31 WBC 9.7 (4.8-10.8) X10*3/uL RBC 5.51 H (4.20-5.50) X10*6/uL Hgb 15.8 (12.0-16.0) g/dl Hct 47.9 H (37.0-47.0) % MCV 86.9 (80.0-98.0) fL MCH 28.7 (27.0-33.0) pg MCHC 33.0 (31.0-35.0) g/dl RDW 13.7 (11.0-16.0) % Plt Count 254 D (160-400) X10*3/uL MPV 9.7 (9.4-12.3) fL Immature Gran % (Auto) 0.4 (0.0-0.4) % Neut % (Auto) 73.8 H (45-73) % Lymph % (Auto) 14.8 L (20-40) % Jennings % (Auto) 9.6 (2-11) % Eos % (Auto) 1.0 (0-4) % Baso % (Auto) 0.4 (0-2) % Lymph # (Auto) 1.4 (1.2-4.9) X10*3/uL Jennings # (Auto) 0.9 (0.1-1.2) X10*3/uL Eos # (Auto) 0.1 (0.0-0.4) X10*3/uL Baso # (Auto) 0.0 (0.0-0.2) X10*3/uL Abs Immat Gran (auto) 0.04 H (0.00-0.03) X10*3/uL Absolute Neuts (auto) 7.1 (2.0-8.3) x10*3/uL Absolute Nucleated RBC 0.000 (0.0-0.012) X10*3/uL Nucleated RBC % (auto) 0.0 (0.0-0.2) /100WBC Sodium 137 (135-145) mmol/L Potassium 4.0 (3.3-5.1) mmol/L Chloride 101 (96-108) mmol/L Carbon Dioxide 25 (22-29) mmol/L Anion Gap 15 (12-20) BUN 7 L (9-16) mg/dL Creatinine 0.69 (0.5-1.4) mg/dL Estim Creat Clear Calc 135.8 Estimated GFR > 60 Random Glucose 86 (60-115) mg/dL Calcium 9.5 (8.4-10.2) mg/dL Magnesium 2.0 (1.6-2.6) mg/dL Total Bilirubin 1.6 H (0.0-1.0) mg/dL Direct Bilirubin 0.3 (0.0-0.5) mg/dL AST 14 (5-31) U/L ALT 16 (0-31) U/L Alkaline Phosphatase 73 (39-117) U/L Total Protein 6.9 (6.5-8.0) g/dL Albumin 3.9 (3.5-5.0) g/dL TSH 0.64 (0.32-4.0) uIU/mL Influenza Type A (PCR) (Negative) Influenza Type B (PCR) (Negative) RSV RNA Qual (PCR) (Negative) SARS-CoV-2 RNA (RT-PCR) (Negative) S. pyogenes GrpA KATLYN Negative (Negative) 01/21/23 Range/Units 11:31 WBC (4.8-10.8) X10*3/uL RBC (4.20-5.50) X10*6/uL Hgb (12.0-16.0) g/dl Hct (37.0-47.0) % MCV (80.0-98.0) fL MCH (27.0-33.0) pg MCHC (31.0-35.0) g/dl RDW (11.0-16.0) % Plt Count (160-400) X10*3/uL MPV (9.4-12.3) fL Immature Gran % (Auto) (0.0-0.4) % Neut % (Auto) (45-73) % Lymph % (Auto) (20-40) % Jennings % (Auto) (2-11) % Eos % (Auto) (0-4) % Baso % (Auto) (0-2) % Lymph # (Auto) (1.2-4.9) X10*3/uL Jennings # (Auto) (0.1-1.2) X10*3/uL Eos # (Auto) (0.0-0.4) X10*3/uL Baso # (Auto) (0.0-0.2) X10*3/uL Abs Immat Gran (auto) (0.00-0.03) X10*3/uL Absolute Neuts (auto) (2.0-8.3) x10*3/uL Absolute Nucleated RBC (0.0-0.012) X10*3/uL Nucleated RBC % (auto) (0.0-0.2) /100WBC Sodium (135-145) mmol/L Potassium (3.3-5.1) mmol/L Chloride (96-108) mmol/L Carbon Dioxide (22-29) mmol/L Anion Gap (12-20) BUN (9-16) mg/dL Creatinine (0.5-1.4) mg/dL Estim Creat Clear Calc Estimated GFR Random Glucose (60-115) mg/dL Calcium (8.4-10.2) mg/dL Magnesium (1.6-2.6) mg/dL Total Bilirubin (0.0-1.0) mg/dL Direct Bilirubin (0.0-0.5) mg/dL AST (5-31) U/L ALT (0-31) U/L Alkaline Phosphatase (39-117) U/L Total Protein (6.5-8.0) g/dL Albumin (3.5-5.0) g/dL TSH (0.32-4.0) uIU/mL Influenza Type A (PCR) NEGATIVE (Negative) Influenza Type B (PCR) NEGATIVE (Negative) RSV RNA Qual (PCR) NEGATIVE (Negative) SARS-CoV-2 RNA (RT-PCR) POSITIVE A (Negative) S. pyogenes GrpA KATLYN (Negative) Independent Interpretation I performed an independent interpretation of an: Plain X-Ray and CT Scan Interpretation: Chest x-ray and CT scan reviewed by me, and I agree with the radiology report. Radiology Impression Discussion of test interpretation with radiology: I have reviewed the radiologist's reading. Radiologist Impression: EXAMINATION: XR CHEST CLINICAL INFORMATION: Cough. COMPARISON: None available. TECHNIQUE: 2 views of the chest were obtained. FINDINGS: No significant abnormality is noted involving the heart, lungs, mediastinum, bony thorax or soft tissues. XR/XR chest 2V IMPRESSION: No acute cardiopulmonary process. Dictated By: Ulisses Torres MD FINDINGS: There is a multinodular thyroid goiter with an associated retrosternal component , the size of which is grossly unchanged when compared to the prior soft tissue neck CT scan from 12/14/2022. The left ventral strap muscles are however slightly thickened. No discrete drainable fluid collection. There are a few somewhat prominent albeit otherwise nonspecific bilateral level II and III cervical lymph nodes, none of which demonstrate worrisome enhancement characteristics to suggest capsular invasion or central necrosis. No axillary adenopathy is visualized within the [id number] of this examination. Pharyngeal mucosal spaces are symmetric. Parapharyngeal and retromaxillary fat is preserved. Traveling Buyer spaces are symmetric. The parotid and submandibular glands are normal. The tongue base and epiglottis are normal. Preepiglottic fat is preserved. Glottic and subglottic airways are widely patent. Lung apices are clear. The aortic arch apex is normal. Cervical carotid and vertebral arteries are grossly patent. There is no acute osseous finding. Specifically no worrisome lytic or blastic osseous lesion. Grossly no evidence of spinal canal compromise. The skull base is intact. No mastoid or middle ear effusion. Limited visualization of the intracranial anatomy reveals no abnormal finding. 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 There is however asymmetric thickening of the left ventral strap muscles. No discrete drainable fluid collection or hematoma status post biopsy. There are a few somewhat prominent albeit otherwise nonspecific bilateral level II and III cervical lymph nodes, none of which demonstrate worrisome enhancement characteristics to suggest capsular invasion or central necrosis. Dictated By: Xiang Montaño MD Signed By: <Electronically signed by Xiang Montaño MD in OV> Prescription Management I considered prescription management with: Antibiotic Discharge Plan Discharge Clinical Impression: Neck pain Patient Disposition: Home, Self-Care Instructions: Acute Neck Pain (ED) Additional Instructions: Your CT scan shows no drainable fluid collection or hematoma, but there is some asymmetric thickening of the ventral strap muscles . We are covering you with antibiotics. Please take clindamycin as directed. Take Diflucan after you finish the course of antibiotics if needed. Your COVID-19 test was positive today. Drink plenty of fluids and get plenty of rest. Take Tylenol/Motrin as needed. Please follow up with your office equipment technician. If any new or worsening symptoms occur, please return for re-evaluation. Prescriptions: New clindamycin HCl 300 mg capsule 300 mg PO TID 7 Days Qty: 21 0RF fluconazole [Diflucan] 150 mg tablet 150 mg PO ONCE Qty: 1 0RF No Action atorvastatin 80 mg tablet 80 mg PO BEDTIME 30 Days Qty: 30 11RF metronidazole 0.75 % (37.5mg/5 gram) gel 1 appful vaginal BEDTIME 7 Days Qty: 70 0RF metronidazole 500 mg tablet 500 mg PO TID 5 Days Qty: 15 0RF buspirone 5 mg tablet 5 mg PO BID PRN pantoprazole 20 mg tablet,delayed release (DR/EC) 40 mg PO DAILY Vitamin Plus Low Iron 27 mg iron- 1 mg tablet 1 tab PO DAILY Qty: 30 11RF nitrofurantoin macrocrystal [Macrodantin] 50 mg capsule 50 mg PO BEDTIME Qty: 45 0RF Rx Instructions: must administer with a meal/food oxybutynin chloride 5 mg tablet extended release 24hr 5 mg PO DAILY Qty: 90 1RF Stand Alone Forms: Work/School Release Interventions: ED Discharge Assessment Last Done: 01/21/23 15:28 Discharge Date/Time: 01/21/23 15:29
[2023-01-21 11:59] LABS: IDNOW Serial# 08D9AD1C; Strep A Nucleic Acid Negative (Negative)
[2023-01-21 11:59] LABS: Basophils Percent Auto 0.4 % (0-2); Eosinophils Absolute Auto 0.1 X10*3/uL (0.0-0.4); Hematocrit 47.9 % (37.0-47.0); Hemoglobin 15.8 g/dl (12.0-16.0); Imm Gran Abs Auto 0.04 X10*3/uL (0.00-0.03); Imm Gran Pct Auto 0.4 % (0.0-0.4); Lymphocytes Absolute Auto 1.4 X10*3/uL (1.2-4.9); Lymphocytes Percent Auto 14.8 % (20-40); Mean Corpuscular Hemoglobin 28.7 pg (27.0-33.0); Mean Corpuscular Volume 86.9 fL (80.0-98.0); Mean Platelet Volume 9.7 fL (9.4-12.3); Monocytes Absolute Auto 0.9 X10*3/uL (0.1-1.2); Monocytes Percent Auto 9.6 % (2-11); Neutrophils Absolute Auto 7.1 x10*3/uL (2.0-8.3); Neutrophils Percent Auto 73.8 % (45-73); Platelet Count 254 X10*3/uL (160-400); Red Blood Count 5.51 X10*6/uL (4.20-5.50); Red Cell Distribution Width 13.7 % (11.0-16.0); White Blood Count 9.7 X10*3/uL (4.8-10.8)
[2023-01-21 12:07] LABS: Alanine Aminotransferase 16 U/L (0-31); Albumin Level 3.9 g/dL (3.5-5.0); Alkaline Phosphatase 73 U/L (39-117); Anion Gap 15 (12-20); Aspartate Amino Transferase 14 U/L (5-31); Bilirubin Direct 0.3 mg/dL (0.0-0.5); Bilirubin Total 1.6 mg/dL (0.0-1.0); Blood Urea Nitrogen 7 mg/dL (9-16); Calcium 9.5 mg/dL (8.4-10.2); Carbon Dioxide 25 mmol/L (22-29); Chloride 101 mmol/L (96-108); Creatinine Clr Calc Pharmacy 135.8; Estimated Glomerular Filt Rate > 60; Glucose Random 86 mg/dL (60-115); Sodium 137 mmol/L (135-145); Total Protein 6.9 g/dL (6.5-8.0)
[2023-01-21 12:18] LABS: TSH reflex Free T4 0.64 uIU/mL (0.32-4.0)
[2023-01-21 12:29] LABS: Influenza A PCR NEGATIVE (Negative); Influenza B PCR NEGATIVE (Negative); Resp Syncy Virus RNA Qual PCR NEGATIVE (Negative); SARS COV2 PCR INHOUSE POSITIVE (Negative)
[2023-01-21] MEDS: iohexoL 350 MG/ML 100 ML INFUS..BTL IV (13:16)
[2023-01-21] MEDS: Acetaminophen 325 MG TABLET 975 MG PO (14:14)
== END 2023-01-21 15:29 | disposition home or self-care (01) ==
PROVIDERS: Physician Assistant Medical; Emergency Provider Emergency Medicine; PCP Internal Medicine
DX: J02.8 Acute pharyngitis due to other specified organisms (principal); M54.2 Cervicalgia; F17.210 Nicotine dependence, cigarettes, uncomplicated; Z71.6 Tobacco abuse counseling; F12.90 Cannabis use, unspecified, uncomplicated; Z20.822 Contact with and (suspected) exposure to COVID-19; Z20.828 Contact with and (suspected) exposure to other viral communicable diseases; Z79.899 Other long term (current) drug therapy
CPT/HCPCS: 0241U; 70491; 71046; 80048; 80076; 83735; 84443; 85025; 87651; 99283; 99284; Q9967

== ENCOUNTER → 2023-01-28 10:12 | Outpatient (REF) | payer MEDICAID, SELFPAY ==
--- NOTE | 2023-01-28 10:19 | CA_ITS ---
Transthoracic Echocardiogram Patient (Last, First, Middle): Triny Mcclure, Gender: Female Date of : 1995 Age: 27 Procedure Date: 01/28/2023 Procedure Type: Transthoracic Echocardiogram Location: OP Height: 162.56 cm Weight: 91.63 kg BSA: 1.96 m2 Heart Rate: bpm BP: 134 / 96 mmHg Utility Clerk: JONNY Referring MD: Efraín Carter MD Emergency Medical Dispatcher: Sathya Murphy MD Symptoms: ASSESS LV FUNCTION, FATIGUE, HTN Study Quality: Adequate ECG Rhythm: Sinus Conclusions: - Essentially normal study Findings Left Ventricle Normal left ventricular size, thickness, and systolic function. The visually estimated ejection fraction is between 60-65%. Diastolic function is normal for age. Peak GLS is -22.7%, within normal limits. Right Ventricle Normal right ventricular cavity size and systolic function. Atria Both atria are normal in size. Interatrial shunt cannot be excluded. Aortic Valve Normal aortic valve structure and function. There is no aortic valve stenosis. There is no aortic valve regurgitation. Mitral Valve Normal mitral valve structure and function. There is trace mitral valve regurgitation. There is no mitral valve stenosis. Pulmonic Valve The pulmonic valve is likely normal. Tricuspid Valve Normal tricuspid valve structure. There is trace tricuspid valve regurgitation. The right ventricular systolic pressure is normal. The right ventricular systolic pressure is 19 mmHg. Normal right atrial pressure. There is no evidence of pulmonary hypertension. Great Vessels All visible segments of the aorta are normal in size. The pulmonary artery was not well visualized. Venous The inferior vena cava is normal in size and collapses greater than 50% with inspiration. Pericardium/Pleural There is no evidence of pericardial effusion. Prior Study Comparison No prior study available for comparison. Recommendations, Care & Conclusions Recommend contrast study to evaluate intracardiac shunting. Measurements 2D Linear Measurements IVSd: 1.00 0.6-0.9/0.6-1.0 cm LVIDd: 4.08 3.9-5.3/4.2-5.9 cm LVIDd Index: 2.08 2.4-3.2/2.2-3.1 cm/m2 LVIDs: 2.71 2.0-3.6 cm LVPWd: 0.90 0.7-1.1 cm LA Diam: 3.40 2.7-3.8/3.0-4.0 cm LAIDs Index: 1.73 1.5-2.3 cm/m2 LV Mass: 150.99 67-162/88-224 g LV Mass Index: 77.03 43-95/49-115 g/m2 LVOT Diam: 2.00 3.0+(-)1.3 cm 2D Systolic Function EF 4C: 66.40 >55% EF 2C: 62.30 >55% EF BiP: 64.50 >55% Mitral Valve MV Pk E: 1.22 MV PK A: 0.62 MV Decel Time: 199.00 E/A: 2.00 E'Lateral: 18.70 E'Medial: 7.94 E/E' Med: 15.40 E/E' Lat: 6.50 PHT: 58.00 MVA PHT: 3.79 Decel Calloway: 6.16 Aortic Valve AoV Pk Mendoza: 1.69 AoV Mn Mendoza: 1.20 AoV VTI: 0.39 AoV Pk Grad: 11.00 Aov Mn Grad: 7.00 FREDDIE Cont.VTI: 2.08 LVOT LVOT Pk Mendoza: 1.20 LVOT Mn Mednoza: 0.80 LVOT VTI: 0.26 LVOT Pk Grad: 6.00 LVOT Mn Grad: 3.00 LVOT Diam: 2.00 LVOT Area: 3.14 Diastolic Function MV Pk E: 1.22 MV Pk A: 0.62 E/A: 2.00 E'Medial: 7.94 E/E' Med: 15.40 E' Laterial: 18.70 E/E' Lat: 6.50 Right Ventricle TAPSE (mm): 25.60 TVS' Mendoza: 12.00 Tricuspid Valve TR Pk Mendoza: 1.67 TR Pk Grad: 11.00 RA Press: 8.00 RVSP: 19.00 Great Vessels Aorta Sinus of Valsalva: 3.11 2.0-3.[address] Ridge: 2.08 1.7-3.4 cm Ao Asc: 2.60 2.1-3.4 cm Updated in Other Vendor System with Status of Final Sathya Murphy MD electronically signed on 01/28/2023 4:18:19 PM with status of Final
== END ==
LOC: HO.CARD 10:12
PROVIDERS: PCP Internal Medicine; Visit Provider Internal Medicine
DX: R53.83 Other fatigue (principal); I10 Essential (primary) hypertension
CPT/HCPCS: 93306; 93356

== ENCOUNTER 2023-01-28 14:57 | Outpatient (RCR) | payer MEDICAID, SELFPAY ==
--- NOTE | 2023-01-28 17:18 | MHC.PT.EP ---
[facility] [place] Office [place] Office [place] Office [address] Yany Moy [address] [phone] F: [phone] F: [phone] F: [phone] F: [phone] Physical Therapy Plan of Care Date of Evaluation: Date of Surgery: N/A Diagnosis: female genital prolapse; urinary incontinence (RC) Assessment: pt is a 27 y/o female presenting to physical therapy w/ referring diagnosis of female genital prolapse; urinary incontinence. pt's signs and symptoms consistent w/ R15.2 fecal urgency, M62.81 muscle weakness (generalized), N81.10 cystocele, unspecified, N39.41 urge incontinence, R39.15 urgency of urination. Impairments include pain, decreased range of motion, decreased strength, impaired functional mobility, impaired postural awareness, and altered ambulation mechanics. pt is a good candidate for skilled PT due to age, potential remediation of impairments, typical disease/condition progression and prognosis, comorbidities, and motivation. pt would benefit from skilled PT intervention to provide a tailored strengthening and stretching exercise program, functional training, gait training, postural re-training, neuromuscular re-education, modalities as needed for pain, equipment safety demonstration. Frequency and Duration: The patient will be seen 1x/wk for 6 wks Short Term Goals: pt will be I w/ HEP to promote self-management of condition. Identify bladder irritants and correct fluid intake assessed via teachback method. Describe normal voiding frequency and patterns assessed via teachback method. Demonstrate behavioral techniques to help defer urgency assessed via teachback method and patient demonstration as appropriate. Correction Goals: Demonstrate proper seated toileting posture w/ knees higher than hips to promote decreased activity of pelvic floor muscles to improve coordination for voiding. Increase pelvic muscle awareness/ isolation as assessed visually or assessed via teachback method and patient demonstration as appropriate. Coordinate pelvic floor with thoracic diaphragm/ functional activities to reduce incontinence episodes. Pt will perform all ADL, work and recreational activities with >80% continence. Treatment Plan: Modalities to reduce pain, spasms and effusion. Manual therapy to restore motion and function. Therapeutic exercise to improve strength and flexibility. Neuromuscular re-education for posture and balance. Therapeutic activities to return to functional activities of daily living. Electronically signed by: Please sign and return to therapist. Thank you for your referral.
--- NOTE | 2023-02-18 16:09 | MHC.PT.DC ---
[facility] [place] Office [place] Office [place] Office [address] Yany Moy 140 [facility] [phone] F: [phone] F: [phone] F: [phone] F: [phone] Physical Therapy Discharge Report Diagnosis: female genital prolapse; urinary incontinence (RC) Date of Surgery: N/A Date of Evaluation: 01/28/23 Date of Discharge: 02/18/23 Treatments to Date: 1 Cancellations to Date: 1 No Shows to Date: 3 Discharge Status: Visit Non-compliance Discharge Summary: The patient has no showed three consecutive appointments. Per [facility] Core Therapy attendance policy she is being discharged for visit non-compliance. Electronically signed by: Valentina Bledsoe PT, DPT Please sign and return to therapist. Thank you for your referral.
== END 2023-02-18 16:10 | disposition home or self-care (01) ==
LOC: HO.PT 14:57
PROVIDERS: PCP Internal Medicine; Visit Provider Pediatrics Pediatric Gastroenterology
DX: N81.89 Other female genital prolapse (principal); R35.0 Frequency of micturition; R32 Unspecified urinary incontinence
CPT/HCPCS: 97162

== ENCOUNTER 2023-01-31 08:31 | Outpatient (REF) | payer MEDICAID, SELFPAY ==
--- NOTE | ~2023-01-31 | CT_ITS ---
EXAMINATION: CT CHEST WITH CONTRAST CLINICAL INFORMATION: Mediastinal disease. COMPARISON: None available. TECHNIQUE: Multidetector volumetric CT imaging of the chest was obtained after the administration of 50 mL of Omnipaque 350 intravenous contrast without immediate adverse reactions. Axial MIP volume rendering provided. Sagittal and coronal reformatted images were obtained. This CT examination was performed using dose optimization techniques as appropriate, variously including the following: *Automated exposure control *Adjustment of mA and/or kV according to patient size (this includes techniques or standardized protocols for targeted exams where dose is matched to indication/reason for exam; i.e. extremities or head) *Use of iterative reconstruction technique DLP: 3:30 mGy-cm FINDINGS: BATTERY INSPECTOR: Well-inflated lungs. LUNGS: The lungs are well-expanded and clear of acute pneumonic process. There are no pulmonary nodules, mass or consolidation. No atelectatic changes seen. MEDIASTINUM: There is a significantly enlarged left thyroid lobe with substernal extension consistent with goiter. There is deviation of trachea to the right with mild compromise of the tracheal lumen. Heart size and the great vessels are normal caliber. No abnormal size mediastinal lymph nodes. No abnormal coronary artery calcifications. No pericardial effusion seen. Central trachea and the bronchi appear widely patent. PLEURA: There is no pleural effusion. No pleural mass or thickening. AXILLA: No lymphadenopathy. UPPER ABDOMEN: Visualized liver, spleen, pancreas and bilateral adrenal glands are unremarkable. OSSEOUS STRUCTURES: No aggressive lytic or sclerotic process seen. There is mild ventral spondylosis mid dorsal spine.. CT/CT chest w IV con IMPRESSION: 1. Significantly enlarged left thyroid lobe with substernal extension. Findings consistent with goiter. There is deviation of trachea to the right with mild compromise of the tracheal lumen. 2. The lungs are clear. Fleischner guidelines were followed.
[2023-01-31] MEDS: iohexoL 350 MG/ML 100 ML INFUS..BTL IV (09:11)
== END 2023-01-31 08:32 | disposition home or self-care (01) ==
LOC: HO.CT 08:31
PROVIDERS: Visit Provider Internal Medicine
DX: J98.59 Other diseases of mediastinum, not elsewhere classified (principal)
CPT/HCPCS: 71260; Q9967

== ENCOUNTER → 2023-04-01 15:01 | Outpatient (BNVA) | payer MEDICAID, SELFPAY | PROVIDERS: PCP Internal Medicine; Referring Provider Internal Medicine; Visit Provider Internal Medicine Cardiovascular Disease ==

== ENCOUNTER 2023-05-22 09:05 | Outpatient (AMB) | payer MEDICAID, SELFPAY ==
--- NOTE | 2023-05-22 09:05 | MHC.OFFVIS ---
Intake Intake Visit Reasons: FNA results 30 mins per md Allergies cortisone Allergy (Unknown, Uncoded 05/22/23 09:16) rash flu shot Allergy (Unknown, Uncoded 05/22/23 09:16) Hives latex Allergy (Unknown, Uncoded 05/22/23 09:16) Rash Medication List - Last Reconciled 05/22/23 by Nancy Farrell, atorvastatin 80 mg PO BEDTIME 30 days buspirone 5 mg PO BID PRN cholecalciferol (vitamin D3) 25 mcg PO DAILY L. acidophilus/Bifid. animalis 31 billion cell (Dermacinrx Probitran) caps PO metronidazole 0.75%(37.5mg/5gram) 1 appful vaginal BEDTIME 7 days metronidazole 500 mg PO TID 5 days nitrofurantoin macrocrystal (Macrodantin) 50 mg PO BEDTIME pantoprazole 40 mg PO DAILY HPI HPI Comments History of Present Illness Details 28 YO Female with a PMHx of HLD who is seen in F/U for a NTMNG. 1) HLD She reports a longstanding history of HLD with LDL well over 200. She has a strong family history of HLD in all family members, and her Mother suffered an W[place] in her 40's. She is currently using Atorvastatin 20 mg PO daily, and has not repeated her lipid panel in 1 years time. She does have xanethlasma of her eyelids. She has a 6 year old daughter and is unsure if she has had a lipid panel. She does complain of palpitations and symptoms of reflux, but no chest pain currently. 2) Multinodular thyroid She underwent an US of the neck 10/31/2022 which revealed multiple large thyroid nodules. She does complain of compressive symptoms with pressure in the neck while lying flat and occasional dysphagia. She denies any vocal hoarseness. TFTs were WNL. She underwent FNA biopsy 01/17/2023 of her left mid pole 4.3 cm, isthmus 3.2 cm and right isthmus 1.6 cm thyroid nodules, all with benign cytology. She underwent a CT of the neck and chest which revealed a mediastinal component of the thyroid with mass effect on the trachea. She was referred to Dr. Chavez and has her initial consultation for a thyroidectomy 06/07/2023. Thyroid US: 10/31/2022 Right Thyroid Lobe: 5.5 x 2.1 x 1.6 cm, volume 10.0 mL. Parenchyma: The gland echotexture is heterogeneous. Thyroid vascularity is increased. Left Thyroid Lobe: 7.0 x 3.2 x 1.9 cm, volume 22 mL. Parenchyma: The gland echotexture is heterogeneous. Thyroid vascularity is increased. Isthmus: 0.5 cm in maximum AP dimension. Estimated total number of nodules greater than or equal to 1 cm: 5. Truck Headlight Assembler nodules are described as follows: 1. Location: Isthmus. ?? ? Size: 3.2 x 1.9 x 3.2 cm, volume 10.2 mL. ?? ? Nodule characteristics: ?? ? Composition: Solid (2). ?? ? Echogenicity: Isoechoic (1). ?? ? Shape: Not taller than wide (0). ?? ? Margins: Smooth (0). ?? ? Echogenic Foci: None (0). ?? ? ACR TI-RADS total points: 3. ?? ? ACR TI-RADS category: 3. 2. Location: Right inferior. ?? ? Size: 1.0 x 0.7 x 0.7 cm, volume 0.2 mL. ?? ? Nodule characteristics: ?? ? Composition: Solid/almost completely solid (2). ?? ? Echogenicity: Isoechoic (1). ?? ? Shape: Not taller than wide (0). ?? ? Margins: Lobulated (2). ?? ? Echogenic Foci: None (0). ?? ? ACR TI-RADS total points: 5. ?? ? ACR TI-RADS category: 4. 3. Location: Right medial inferior. ?? ? Size: 1.6 x 1.1 x 1.5 cm, volume 1.4 mL. ?? ? Nodule characteristics: ?? ? Composition: Solid (2). ?? ? Echogenicity: Isoechoic (1). ?? ? Shape: Not taller than wide (0). ?? ? Margins: Ill-defined (0). ?? ? Echogenic Foci: None (0). ?? ? ACR TI-RADS total points: 3 ?? ? ACR TI-RADS category: 3 4. Location: Left superior. ?? ? Size: 1.3 x 0.9 x 1.5 cm, volume 0.9 mL. ?? ? Nodule characteristics: ?? ? Composition: Solid (2). ?? ? Echogenicity: Isoechoic (1). ?? ? Shape: Not taller than wide (0). ?? ? Margins: Lobulated (2). ?? ? Echogenic Foci: None (0). ?? ? ACR TI-RADS total points: 5. ?? ? ACR TI-RADS category: 4. 5.? Location: Left inferior. ?? ? Size: 4.3 x 2.7 x 3.1 cm, volume 18.3 mL. ?? ? Nodule characteristics: ?? ? Composition: Solid (2). ?? ? Echogenicity: Isoechoic (1). ?? ? Shape: Not taller than wide (0). ?? ? Margins: Ill-defined (0). ?? ? Echogenic Foci: Macrocalcifications (1). ?? ? ACR TI-RADS total points: 4. ?? ? ACR TI-RADS category: 4. NODES: No lymphadenopathy is seen in the tissue surrounding the thyroid gland. ADDITIONAL FINDINGS: There is isoechoic to hypoechoic lesion inferior to right thyroid lobe with minimal vascularity measuring 1.0 x 0.5 x 0.6 cm. Labs: Laboratory Tests 01/21/23 11:30 TSH 0.64 PFSH Medical History Anxiety Asthma Corpus luteum cyst of right ovary Depression GERD (gastroesophageal reflux disease) HLD (hyperlipidemia) Mediastinal mass Multinodular thyroid Vitamin D deficiency Surgical History No pertinent past surgical history Family History Mother Diabetes HTN (hypertension) Early menopause Father Diabetes Maternal Aunt Thyroid disease Social History Household Members: Family Housing: House Alcohol intake: current Alcohol intake frequency: holidays/special occasions only Patient Tobacco Use Status: Current everyday Tobacco user Tobacco use type: Cigarette Cigarettes Per Day: 1 Years Smoked: 6 Substance Use Type: Marijuana Current occupational status: employed 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 She underwent FNA biopsy 01/17/2023 of her left mid pole 4.3 cm, isthmus 3.2 cm and right isthmus 1.6 cm thyroid nodules all with benign cytology. CT of the chest did reveal mass effect of the thyroid on the trachea within the mediastinum. She was referred for a total thyroidectomy and is having her initial surgical consultation 06/07/2023. Will check TFTs as well as Calcium and Vitamin D at this time. She will then F/U in 3 months time. All of her questions were answered. She is in agreement with this plan of care. I spent 10 minutes in reviewing the record, seeing the patient and documenting in the medical record, including 5 minutes on the phone with the Patient. (2) HLD (hyperlipidemia): Code(s): E78.5 - Hyperlipidemia, unspecified Plan: Patient with xanthelasma's and elevated LDL. She is not on max intensity statin and as of last check LDL was not at goal. 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 She was started on Atorvastatin 80 mg PO daily and remains on this now. She will require aggressive lowering of her LDL, with goal <50. Will repeat her lipid panel now. We reviewed that xanthelasma will not improve on its own, and if significantly bothersome to her plastic surgery is an option. She is not interested in pursuing this at this time. (3) Vitamin D deficiency: Code(s): E55.9 - Vitamin D deficiency, unspecified Plan: Will check Vitamin D and PTH levels in preparation for her thyroid surgery. Orders: Orders Albumin Level Today E55.9 - Vitamin D deficiency, unspecified Calcium Today E55.9 - Vitamin D deficiency, unspecified Creatinine Today E55.9 - Vitamin D deficiency, unspecified LDL Cholesterol Direct Today E78.5 - Hyperlipidemia, unspecified Lipid Panel Today E78.5 - Hyperlipidemia, unspecified Phosphorus Today E55.9 - Vitamin D deficiency, unspecified PTHI Today E55.9 - Vitamin D deficiency, unspecified Free T4 (Free Thyroxine) Today E04.2 - Nontoxic multinodular goiter Thyroid Stimulating Hormone Today E04.2 - Nontoxic multinodular goiter Telehealth Telehealth Location of provider rendering services: practice address Location of patient: address on file Patient Identification confirmed using: Name, : Yes Telehealth method: voice only Patient verbally consented to treatment: Yes Patient verbally consented to billing insurance company: Yes Patient informed of any privacy concerns related to visit: Yes Coding Level of Care Code Tele Est Pt Level 2 (71111) Diagnoses Multinodular thyroid E04.2 HLD (hyperlipidemia) E78.5 Vitamin D deficiency E55.9
== END 2023-05-22 09:29 | disposition home or self-care (01) ==
LOC: HO.ENCR 09:05
PROVIDERS: PCP Internal Medicine; Visit Provider Internal Medicine
DX: E04.2 Nontoxic multinodular goiter (principal); E78.5 Hyperlipidemia, unspecified; E55.9 Vitamin D deficiency, unspecified
CPT/HCPCS: 99212

== ENCOUNTER → 2023-05-22 09:05 | Outpatient (BNVA) | payer MEDICAID, SELFPAY | PROVIDERS: PCP Internal Medicine; Visit Provider Internal Medicine ==

== ENCOUNTER 2023-06-11 15:08 | Outpatient (REF) | payer BC, MEDICAID, SELFPAY ==
[2023-06-11 15:23] LABS: MANUAL DIFF FLAG NO
[2023-06-11 15:34] LABS: Basophils Absolute Auto 0.1 X10*3/uL (0.0-0.2); Basophils Percent Auto 0.5 % (0-2); Eosinophils Absolute Auto 0.5 X10*3/uL (0.0-0.4); Eosinophils Percent Auto 3.5 % (0-4); Hematocrit 44.6 % (37.0-47.0); Hemoglobin 14.5 g/dl (12.0-16.0); Imm Gran Abs Auto 0.05 X10*3/uL (0.00-0.03); Imm Gran Pct Auto 0.4 % (0.0-0.4); Lymphocytes Absolute Auto 2.9 X10*3/uL (1.2-4.9); Lymphocytes Percent Auto 21.9 % (20-40); Mean Corpuscular HGB Conc 32.5 g/dl (31.0-35.0); Mean Corpuscular Hemoglobin 27.9 pg (27.0-33.0); Mean Corpuscular Volume 85.9 fL (80.0-98.0); Mean Platelet Volume 9.4 fL (9.4-12.3); Monocytes Absolute Auto 0.8 X10*3/uL (0.1-1.2); Monocytes Percent Auto 6.2 % (2-11); Neutrophils Percent Auto 67.5 % (45-73); Platelet Count 319 X10*3/uL (160-400); Red Blood Count 5.19 X10*6/uL (4.20-5.50); Red Cell Distribution Width 13.7 % (11.0-16.0); White Blood Count 13.3 X10*3/uL (4.8-10.8)
[2023-06-11 16:55] LABS: Erythrocyte Sedimentation Rate 36 MM/HR (0-20)
[2023-06-11 17:05] LABS: Alanine Aminotransferase 12 U/L (0-31); Albumin Level 3.5 g/dL (3.5-5.0); Alkaline Phosphatase 72 U/L (39-117); Aspartate Amino Transferase 13 U/L (5-31); Bilirubin Direct 0.2 mg/dL (0.0-0.5); Bilirubin Total 0.9 mg/dL (0.0-1.0); C Reactive Protein 1.54 mg/dL (< or = 0.50); Lipase 10 U/L (8-78); Total Protein 6.8 g/dL (6.5-8.0)
[2023-06-12 12:53] LABS: Gliadin Deamidated IgA Ab <1.0 U/mL; Gliadin Deamidated IgG Ab <1.0 U/mL
[2023-06-14 11:28] LABS: Transglutaminase Ab IgG 9.6 U/mL; Transglutaminase IgA <1.0 U/mL
[2023-06-14 21:38] LABS: Immunoglobulin A 205 mg/dL (47-310)
[2023-06-15 12:53] LABS: Endomysial IgA Antibody Negative (Negative)
== END 2023-06-11 15:09 | disposition home or self-care (01) ==
LOC: HO.LAB 15:08
PROVIDERS: PCP Internal Medicine; Visit Provider Internal Medicine
DX: K58.2 Mixed irritable bowel syndrome (principal); K80.20 Calculus of gallbladder without cholecystitis without obstruction; R10.11 Right upper quadrant pain
CPT/HCPCS: 36415; 80076; 82784; 83690; 85025; 85652; 86140; 86231; 86258; 86364

== ENCOUNTER 2023-06-14 13:03 | Outpatient (REF) | payer BC, SELFPAY ==
--- NOTE | ~2023-06-14 | US_ITS ---
EXAMINATION: US ABDOMEN LIMITED CLINICAL INFORMATION: Right upper quadrant pain. COMPARISON: Ultrasound kidneys and bladder 06/22/2022. TECHNIQUE: Real-time imaging of the right upper quadrant abdominal viscera. Limited visualization due to bowel gas. FINDINGS: PANCREAS: Limited visualization. LIVER: Diffuse increase in echogenicity and heterogeneity of the liver is characteristic of primary hepatocellular disease, possibly due to hepatic steatosis and further limits visualization. GALLBLADDER: Gallbladder wall thickening of 0.4 cm. Large gallstones. COMMON BILE DUCT: Normal in caliber measuring 0.20 cm in diameter. RIGHT KIDNEY: No hydronephrosis. No renal calculi. Renal cortical thickness is normal. Limited visualization. The kidney measures 11.1 cm in maximum dimension. FREE FLUID: None. US/US abdomen limited IMPRESSION: 1. Cholelithiasis. Gallbladder wall thickening of 0.4 cm. 2. Diffuse increase in echogenicity and heterogeneity of the liver is characteristic of primary hepatocellular disease, possibly due to hepatic steatosis and further limits visualization.
[2023-06-14 16:21] LABS: Albumin Level 3.4 g/dL (3.5-5.0); Calcium 9.2 mg/dL (8.4-10.2); Cholesterol 286 mg/dL (<200); Estimated Glomerular Filt Rate > 60; HDL Cholesterol 38 mg/dL (>40); LDL Cholesterol Calculated 216 mg/dL (<100); Phosphorus 3.6 mg/dL (2.7-4.5); Triglycerides 160 mg/dL (<150)
[2023-06-14 16:38] LABS: Free T4 (Free Thyroxine) 1.06 ng/dL (0.71-1.85); Thyroid Stimulating Hormone 1.68 uIU/mL (0.32-4.0)
[2023-06-15 12:48] LABS: LDL Cholesterol Direct 244 mg/dL (<100)
[2023-06-17 11:29] LABS: Calcium (PTHI) 9.1 mg/dL (8.6-10.2); PTHI 32 pg/mL (16-77)
== END 2023-06-14 13:04 | disposition home or self-care (01) ==
LOC: HO.HMGCX 13:03
PROVIDERS: Absent Provider Internal Medicine; PCP Internal Medicine; Visit Provider Internal Medicine
DX: R10.11 Right upper quadrant pain (principal); K80.20 Calculus of gallbladder without cholecystitis without obstruction; E55.9 Vitamin D deficiency, unspecified; E78.5 Hyperlipidemia, unspecified; E04.2 Nontoxic multinodular goiter
CPT/HCPCS: 36415; 76705; 80061; 82040; 82310; 82565; 83721; 83970; 84100; 84439; 84443

== ENCOUNTER 2023-06-20 10:57 | Outpatient (AMB) | payer BC, MEDICAID, SELFPAY ==
--- NOTE | 2023-06-20 11:00 | MHC.OFFVIS ---
Intake Vital Signs 06/20/23 11:16 Height 5 ft 4 in Weight 204 lb BMI 35.0 BP 130/90 H Blood Pressure Location Lt brachial Position Sitting Intake Visit Reasons: Large gallstones, abdominal pain Intake Note: Patient is seen in office for evaluation of large gallstones, following abdominal pain. Patient c/o: onset for a year, admits to pain, radiates to the back, nausea and vomit, worse after meals, diarrhea and constipation on/off, had imaging done Biology Research Assistant Required: No Accompanied by: Self / Same As Patient Allergies cortisone Allergy (Unknown, Uncoded 06/20/23 11:07) rash flu shot Allergy (Unknown, Uncoded 06/20/23 11:07) Hives latex Allergy (Unknown, Uncoded 06/20/23 11:07) Rash Medication List - Last Reconciled 06/20/23 by Jeramie Kincaid MD atorvastatin 80 mg PO BEDTIME 30 days buspirone 5 mg PO BID PRN cholecalciferol (vitamin D3) 25 mcg PO DAILY ezetimibe 10 mg PO DAILY 30 days L. acidophilus/Bifid. animalis 31 billion cell (Dermacinrx Probitran) caps PO metronidazole 0.75%(37.5mg/5gram) 1 appful vaginal BEDTIME 7 days metronidazole 500 mg PO TID 5 days nitrofurantoin macrocrystal (Macrodantin) 50 mg PO BEDTIME pantoprazole 40 mg PO DAILY HPI HPI Comments History of Present Illness Details 28-year-old female patient presenting with a persistent history of abdominal pain mainly on the right side radiating into the back associated with nausea, vomiting, and alternating diarrhea and constipation. The pain seems to be aggravated with food and frequently occurs approximately 20 minutes after eating. The pain is mainly in the right side radiating into the back and shoulder but occasionally is fell in the lower abdomen as well. She underwent workup with ultrasound of the abdomen which revealed a large gallstone and gallbladder wall thickening of 4 mm. The liver was noted to have diffuse increase in echogenicity and heterogeneity characteristic of primary hepatocellular disease, possibly hepatic steatosis. She was evaluated by Dr. Nelson recommended considering cholecystectomy to possibly eliminate some of her symptoms. [facility] Medical History Anxiety Asthma Corpus luteum cyst of right ovary Depression GERD (gastroesophageal reflux disease) HLD (hyperlipidemia) Mediastinal mass Multinodular thyroid Vitamin D deficiency Surgical History No pertinent past surgical history Family History Mother Diabetes HTN (hypertension) Early menopause Father Diabetes Maternal Aunt Thyroid disease Social History Household Members: Family Housing: House Alcohol intake: current Alcohol intake frequency: holidays/special occasions only Patient Tobacco Use Status: Current everyday Tobacco user Tobacco use type: Cigarette Cigarettes Per Day: 1 Years Smoked: 6 Substance Use Type: Marijuana Current occupational status: employed 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 Sexual orientation: Straight/Heterosexual Gender identity: Female Review of Systems Const All systems reviewed & are unremarkable except as noted in HPI and below Denies chills, Denies fever(s), Denies headache(s), Denies poor appetite and Denies weakness ENT Denies headache(s) Card Denies chest pain, Denies irregular heart rhythm, Denies palpitations and Denies dyspnea Resp Denies cough, Denies excessive phlegm production and Denies dyspnea GI Reports abdominal pain, Reports bloating, Denies change in bowel habits, Reports constipation, Denies heartburn, Reports diarrhea, Reports nausea and Reports vomiting Denies urinary frequency Musc Denies back pain, Denies muscle weakness and Denies numbness Skin/Breast Denies changing lesions and Denies unusual bruising Neuro Denies headache(s), Denies numbness, Denies paresthesias and Denies weakness Psych Denies anxiety and Denies depression Endo Denies palpitations Иван/Lymph Denies lymphadenopathy Physical Exam Vital Signs: Last Vital Signs BP 130/90 H 06/20/23 11:16 BMI result Body Mass Index 35.0 Const General: cooperative and no acute distress Nutritional Appearance: well nourished Orientation/consciousness: patient oriented x3 Limitations: no limitations HEENT Head: Yes normocephalic and Yes atraumatic Ears: hearing grossly normal bilaterally Eyes Sclerae: sclerae normal Resp Effort & Inspection: normal respiratory effort, no audible wheezes, no cough and no respiratory distress Cardio Jugular venous distension: no JVD GI Inspection: Yes normal to inspection Palpation (GI): Soft to palpation, nontender, no guarding and not rigid Percussion: Yes normal to percussion Rectal Exam - Female: deferred Skin Other: Warm, dry, no rash, normal color Neuro General: patient oriented x3 Extrem General: Yes no clubbing, cyanosis or edema Assessment & Plan Assessment & Plan (1) Cholelithiasis with chronic cholecystitis: Code(s): K80.10 - Calculus of gallbladder with chronic cholecystitis without obstruction Plan 28-year-old female patient presenting with complaints of abdominal pain mainly in the right flank, right back and right shoulder found to have a large gallstone within the gallbladder and wall thickening suggestive of possible cholecystitis. Patient was evaluated by Dr. Nelson and her symptoms felt to be multifactorial. Cholecystectomy was suggested which I would agree based on the ultrasound findings. We discussed the ultrasound findings as well as review the risks, alternatives and benefits of laparoscopic or possible open cholecystectomy. She consents to the laparoscopic or possible open cholecystectomy and will schedule at her earliest convenience. This will be performed as a short-stay surgery. Coding Level of Care Code New Pt Level 4 (10712) Diagnoses Cholelithiasis with chronic cholecystitis K80.10
[2023-06-20 11:16] VITALS: BP 130/90; BMI 35.0
== END 2023-06-20 11:41 | disposition home or self-care (01) ==
PROVIDERS: PCP Internal Medicine; Referring Provider Internal Medicine; Visit Provider Surgery
DX: K80.10 Calculus of gallbladder with chronic cholecystitis without obstruction (principal)
CPT/HCPCS: 99204

== ENCOUNTER → 2023-06-20 10:57 | Outpatient (BNVA) | payer BC, SELFPAY | PROVIDERS: PCP Internal Medicine; Referring Provider Internal Medicine; Visit Provider Surgery ==

== ENCOUNTER 2023-07-03 07:51 | Day surgery (SDC) | payer BC, MEDICAID, SELFPAY ==
[2023-06-28 15:49] VITALS: BMI 35.0
--- NOTE | 2023-07-02 09:06 | HO.ANESPROP2 ---
HPI - Anesthesia Eval Consult details Narrative: 28yo F Cholecystectomy Laparoscopic,poss open PMFSH Active Problems Active Problems: All Active Problems (Updated 06/20/23 @ 11:44 by Jeramie Kincaid MD) Cholelithiasis with chronic cholecystitis (Acute) Mediastinal mass (Acute) Pelvic floor weakness (Acute) Recurrent UTI (Acute) Urinary frequency (Acute) Urinary incontinence (Acute) HLD (hyperlipidemia) (Acute) Vitamin D deficiency (Acute) Multinodular thyroid (Acute) Complex cyst of right ovary (Acute) Corpus luteum cyst of right ovary (Acute) Cystocele (Acute) Past Medical History Medical History (Updated 07/03/23 @ 08:09 by Ainsley Bautista RN) Female bladder prolapse Mediastinal mass HLD (hyperlipidemia) Vitamin D deficiency Multinodular thyroid Corpus luteum cyst of right ovary Anxiety Asthma Depression GERD (gastroesophageal reflux disease) Family History Family History Mother Diabetes HTN (hypertension) Early menopause Father Diabetes Maternal Aunt Thyroid disease Surgical History Surgical History No pertinent past surgical history Social History Social History Household Members: Family Housing: House Alcohol intake: current Alcohol intake frequency: holidays/special occasions only Patient Tobacco Use Status: Current everyday Tobacco user Tobacco use type: Cigarette Cigarettes Per Day: 7 Years Smoked: 6 Substance Use Type: Marijuana 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 occupational status: employed 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 Sexual orientation: Straight/Heterosexual Gender identity: Female Meds Allergies Allergy/AdvReac Type Severity Reaction Status Date / Time cortisone Allergy Unknown rash Uncoded 07/03/23 08:09 flu shot Allergy Unknown Hives Uncoded 07/03/23 08:09 latex Allergy Unknown Rash Uncoded 07/03/23 08:09 Home Medications Medication Instructions Recorded Confirmed Last Taken Type buspirone 5 mg tablet 5 mg PO BID PRN Anxiety 08/21/22 06/20/23 Unknown History pantoprazole 20 mg tablet,delayed 40 mg PO DAILY 08/21/22 06/20/23 Unknown History release Lactobacillus cap PO 04/01/23 06/20/23 Unknown History acidophilus-Bifidobac.animalis 31 billion cell capsule (Dermacinrx Probitran) cholecalciferol (vitamin D3) 25 25 mcg PO DAILY 04/01/23 06/20/23 Unknown History mcg (1,000 unit) capsule Exam Exam Date and Time: July 02, 2023 09 Height,Weight and Vital Signs: Height 5 ft 4 in Weight 92.533 kg Pertinent Lab Results Pertinent Lab Results: Laboratory Tests 01/21/23 01/21/23 01/21/23 11:30 11:30 11:30 WBC Hgb Hct Plt Count Sodium 137 Potassium 4.0 Chloride 101 Carbon Dioxide 25 BUN 7 L Creatinine 06/11/23 06/14/23 15:22 13:45 WBC 13.3 H Hgb 14.5 Hct 44.6 Plt Count 319 D Sodium Potassium Chloride Carbon Dioxide BUN Creatinine 0.69 Narrative Narrative: ECHO 2022 Conclusions: - Essentially normal study Assessment and Plan Assessment Anesthesia Assessment: Chart Reviewed
[2023-07-03] VITALS (9 sets, daily range): BP systolic 126–190; BP diastolic 81–109; PULSE 70–101; RESP 15–16; TEMP 36.1–37; O2SAT 97–98; BMI 35.0
[2023-07-03 08:27] LABS: UPreg QC Valid YES; Urine Pregnancy NEGATIVE (NEGATIVE)
[2023-07-03] MEDS: Lactated Ringers 1,000 ML 100 ML IVCONT (08:27)
--- NOTE | 2023-07-03 08:37 | MHC.SHP ---
Pre-Procedural Eval Section A Date of Service: 07/03/23 The patient is an INPATIENT: No Changes since office visit: Yes Patient answered all questions; No Cold of Flu in the past 2 weeks, No New Medical Problems and No Changes in Medication The History & Physical has been completed within 30 days and I have reviewed it.: Yes Section B Chief Complaint: Calculus of gallbladder with chronic cholecystitis Allergies: Allergies Allergy/AdvReac Type Severity Reaction Status Date / Time cortisone Allergy Unknown rash Uncoded 07/03/23 08:09 flu shot Allergy Unknown Hives Uncoded 07/03/23 08:09 latex Allergy Unknown Rash Uncoded 07/03/23 08:09 Plan Diagnosis/Plan: Unchanged I have reviewed the history and physical and performed a pertinent physical examination on my patient. No changes have occurred unless specified. Time Spent With Patient Time: Total time managing care of this patient today ____ minutes.
--- NOTE | 2023-07-03 08:50 | P.CONAN_ITS ---
[facility] Active Problems Active Problems: All Active Problems (Updated 07/03/23 @ 08:09 by Ainsley Bautista, RN) Cholelithiasis with chronic cholecystitis (Acute) Pelvic floor weakness (Acute) Recurrent UTI (Acute) Urinary frequency (Acute) Urinary incontinence (Acute) Complex cyst of right ovary (Acute) Cystocele (Acute) Mediastinal mass (Acute) HLD (hyperlipidemia) (Acute) Vitamin D deficiency (Acute) Multinodular thyroid (Acute) Corpus luteum cyst of right ovary (Acute) Past Medical History Medical History (Updated 07/03/23 @ 08:09 by Ainsley Bautista, RN) Female bladder prolapse Mediastinal mass HLD (hyperlipidemia) Vitamin D deficiency Multinodular thyroid Corpus luteum cyst of right ovary Anxiety Asthma Depression GERD (gastroesophageal reflux disease) Functional capacity: independent ambulation Patient : No Family History Family History Mother Diabetes HTN (hypertension) Early menopause Father Diabetes Maternal Aunt Thyroid disease Family history of problems with anesthesia: No Surgical History Surgical History No pertinent past surgical history Social History Social History Household Members: Family Housing: House Alcohol intake: current Alcohol intake frequency: holidays/special occasions only Patient Tobacco Use Status: Current everyday Tobacco user Tobacco use type: Cigarette Cigarettes Per Day: 7 Years Smoked: 6 Use of substances other than those prescribed or required for medical reasons: Yes Substance Use Type: Marijuana Substance Use Frequency: Daily Are you DNR?: No Advance Directives: No Advance Directives Information Provided: Yes Current occupational status: employed 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 Sexual orientation: Straight/Heterosexual Gender identity: Female Meds Allergies Allergy/AdvReac Type Severity Reaction Status Date / Time cortisone Allergy Unknown rash Uncoded 07/03/23 08:09 flu shot Allergy Unknown Hives Uncoded 07/03/23 08:09 latex Allergy Unknown Rash Uncoded 07/03/23 08:09 Active Medications: Current Medications Albuterol Sulfate (Albuterol Sulfate (0.083%) 2.5 Mg/3 Ml Vial.Neb) 2.5 mg INHALE ONCE PRN PRN Reason: Shortness of Breath/Wheezing Lactated Ringer's (Lr) 1,000 mls @ 100 mls/hr IVCONT .Q10H MARCO ANTONIO Last Admin: 07/03/23 08:27 Dose: 100 mls/hr Home Medications Medication Instructions Recorded Confirmed Last Taken Type buspirone 5 mg tablet 5 mg PO BID PRN Anxiety 08/21/22 06/20/23 Unknown History pantoprazole 20 mg tablet,delayed 40 mg PO DAILY 08/21/22 06/20/23 Unknown History release Lactobacillus cap PO 04/01/23 06/20/23 Unknown History acidophilus-Bifidobac.animalis 31 billion cell capsule (Dermacinrx Probitran) cholecalciferol (vitamin D3) 25 25 mcg PO DAILY 04/01/23 06/20/23 Unknown History mcg (1,000 unit) capsule Exam Exam Date and Time: July 03, 2023 0850 Height,Weight and Vital Signs: Height 5 ft 4 in Weight 92.533 kg Last Vital Signs Temp 98.6 F 07/03/23 08:21 Pulse 74 07/03/23 08:21 Resp 15 07/03/23 08:21 BP 126/81 07/03/23 08:21 Pulse Ox 97 07/03/23 08:21 O2 Del Method Room Air 07/03/23 08:21 Pertinent Lab Results Pertinent Lab Results: Laboratory Tests 07/03/23 08:05 Urine Test NEGATIVE Airway Mallampati Class: II TM Dist: >3cm Neck ROM: Full Heart: RRR Lungs: CTA Assessment and Plan Assessment Anesthesia Assessment: Anesthesia Plan Discussed and Smoking Cess. Discussed Final Anesthetic Review Family History of Problems with Anesthesia: No NPO: Yes ASA Class: III Final Preanesthetic Review: Meds/Allgs Chart Reviewed, Consent Obtained/Reviewed and Anes Risks/Benef Reviewed Patient Risk: Intermediate Procedure Risk: Low Anesthetic Plan Anesthetic Plan: GA Disposition: Standard PACU
--- NOTE | 2023-07-03 10:34 | W.PM.OPN ---
Operative Note Operative Note Date of Service: 07/03/23 Narrative: Preoperative diagnosis: Chronic cholecystitis, cholelithiasis Postoperative diagnosis: Same Procedure: Laparoscopic cholecystectomy Surgeon: Jeramie Kincaid MD Market Risk Manager: ZAHRA Jade Bret Burgon, PA-S Anesthesia: General endotracheal Indications for procedure: 28-year-old female patient presenting with complaints of upper abdominal pain found to have gallstones on the gallbladder as well as thickened gallbladder wall. Operative findings: Patient found to have adhesions to the gallbladder with a large gallstone within the gallbladder. Specimen: gallbladder Estimated blood loss: 5 mL Complications: Non Procedure details: Patient was brought to the OR and placed in a supine position. After administering general anesthesia the patient's abdomen was prepped with ChloraPrep and draped in a sterile fashion. Local anesthesia consisting of 0.5% Sensorcaine with epinephrine was infiltrated in a periumbilical region. A 5 mm incision was made above the umbilicus in a transverse fashion. The Veress needle was then inserted while elevating abdominal cavity with towel clips. After positive drop test the abdomen was insufflated to a pressure of 15 mm of mercury. The Veress needle was then removed and a 5 mm trocar inserted. The camera was inserted in the abdomen explored. A 12 mm trocar was then placed in the epigastrium. Two 5 mm trocars placed in the right upper quadrant by the lead assistant manager. The patient was placed in reverse Trendelenburg positioning and rotated to the left. The gallbladder was grasped with the fundus and retracted cephalad by the lead assistant manager. The infundibulum was then grasped and retracted away from the liver bed, also by the lead assistant manager. The Dolphin dissected was then used by the surgeon to dissect the peritoneum off the infundibulum to reveal the junction with the cystic duct. Cystic artery was noted slightly medial and posterior to the cystic duct. After obtaining a critical view the cystic duct was doubly clipped and divided. The cystic artery was then doubly clipped and divided. The gallbladder was then dissected off the liver bed using electrocautery with an L hook. Hemostasis was assured all times using the electrocautery. When the gallbladder is completely dissected off the liver bed was placed in an Endo-Catch bag and brought out through the epigastric incision. The gallbladder was sent to pathology for further examination. The abdomen was then re-examined. The liver bed was irrigated and suctioned dry. No bleeding or bile leak could be identified. CO2 was then evacuated and all trocars removed. Fascia was closed at the epigastric incision using a coefta-yp-misie 0 Polysorb suture. Skin was closed in all incisions using a subcuticular 4 0 Polysorb suture by both the surgeon and lead assistant manager. Sterile dressings consisting of Steri-Strips, 2 x 2 gauze, and Tegaderm were then applied. The patient tolerated the procedure well. Sponge instrument and needle counts reported as correct. The patient was transferred to PACU in stable condition.
[2023-07-03] MEDS: Acetaminophen 1,000 MG/100 ML PIGGYBACK 400 MG IV (11:18)
[2023-07-03] MEDS: Ketorolac Tromethamine 30 MG/ML VIAL IVPUSH (11:19)
== END 2023-07-03 12:48 | disposition home or self-care (01) ==
PROVIDERS: Nurse Practitioner; PCP Internal Medicine; Visit Provider Surgery
PROC: 0FT44ZZ Resection of Gallbladder, Percutaneous Endoscopic Approach (ICD-10-PCS; CPT 47562; principal; 2023-07-03 09:10)
DX: K80.10 Calculus of gallbladder with chronic cholecystitis without obstruction (principal); K82.8 Other specified diseases of gallbladder; J45.909 Unspecified asthma, uncomplicated; E78.5 Hyperlipidemia, unspecified; E55.9 Vitamin D deficiency, unspecified; F41.1 Generalized anxiety disorder; Z79.899 Other long term (current) drug therapy; F17.210 Nicotine dependence, cigarettes, uncomplicated; F12.90 Cannabis use, unspecified, uncomplicated; Z88.7 Allergy status to serum and vaccine; Z88.8 Allergy status to other drugs, medicaments and biological substances; Z91.040 Latex allergy status
CPT/HCPCS: 47562; 81025; 88304; J0131; J1100; J1885; J2250; J2405; J3010

== ENCOUNTER → 2023-07-03 07:51 | Outpatient (BNV) | payer BC, MEDICAID, SELFPAY | PROVIDERS: PCP Internal Medicine; Visit Provider Surgery | DX: K80.10 Calculus of gallbladder with chronic cholecystitis without obstruction (principal) | CPT/HCPCS: 47562 ==

== ENCOUNTER 2023-07-11 13:47 | Outpatient (AMB) | payer BC, MEDICAID, SELFPAY ==
--- NOTE | 2023-07-11 13:48 | A.OFFVIS_ITS ---
Intake Vital Signs 07/11/23 13:56 Height 5 ft 4 in Weight 194 lb 8 oz BMI 33.4 BP 126/73 Blood Pressure Location Lt brachial Position Sitting Pulse 109 H Intake Visit Reasons: S/P laparoscopic cholecystectomy Intake Note: Patient is seen in office for post op assessment post laparoscopic cholecystectomy. Patient c/o: admits to pain and stabbing mostly on incision on the right, and lower back pain. Alarm Security Or Surveillance Monitor Required: No Accompanied by: Self / Same As Patient Allergies cortisone Allergy (Unknown, Uncoded 07/11/23 13:50) rash flu shot Allergy (Unknown, Uncoded 07/11/23 13:50) Hives latex Allergy (Unknown, Uncoded 07/11/23 13:50) Rash HPI HPI Comments History of Present Illness Details 28-year-old female patient returning [place] following a laparoscopic cholecystectomy performed on 07/03/2023 for chronic cholecystitis. Operative findings were consistent with chronic cholecystitis. She reports some right shoulder pain and incisional pain from the dressings. She denies nausea or vomiting. Her bowels are moving and she mainly has pain in the left lower quadrant. She denies fever or chills. [facility] Medical History Female bladder prolapse Mediastinal mass HLD (hyperlipidemia) Vitamin D deficiency Multinodular thyroid Corpus luteum cyst of right ovary Anxiety Asthma Depression GERD (gastroesophageal reflux disease) Surgical History Hx laparoscopic cholecystectomy (~07/03/23) Family History Mother Diabetes HTN (hypertension) Early menopause Father Diabetes Maternal Aunt Thyroid disease Social History Household Members: Family Housing: House Alcohol intake: current Alcohol intake frequency: holidays/special occasions only Patient Tobacco Use Status: Current everyday Tobacco user Tobacco use type: Cigarette Cigarettes Per Day: 7 Years Smoked: 6 Substance Use Type: Marijuana Current occupational status: employed 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 Steri-Strips removed and incision found to be intact. Inspection: Yes normal to inspection Palpation (GI): Soft to palpation, no guarding and not rigid Neuro General: patient oriented x3 Extrem General: Yes no clubbing, cyanosis or edema Assessment & Plan Assessment & Plan (1) Cholelithiasis with chronic cholecystitis: Code(s): K80.10 - Calculus of gallbladder with chronic cholecystitis without obstruction Qualifiers: Cholelithiasis location: gallbladder Biliary obstruction: without biliary obstruction Qualified Code(s): K80.10 - Calculus of gallbladder with chronic cholecystitis without obstruction Plan 28-year-old female patient presenting with chronic cholecystitis due to cholelithiasis. She tolerated the procedure well but does have some soreness in the incisions and referred pain in the shoulder. She should continue to avoid fried/greasy foods with the next month avoid heavy lifting greater than 10 lb for the next week. She resumed normal activity as of 07/22/2023. She should follow up as needed. Coding Level of Care Code Global (55773) Diagnoses Calculus of gallbladder with chronic cholecystitis without obstruction K80.10 Cholelithiasis location: gallbladder Biliary obstruction: without biliary obstruction
[2023-07-11 13:56] VITALS: BP 126/73; PULSE 109; BMI 33.4
== END 2023-07-11 14:10 | disposition home or self-care (01) ==
PROVIDERS: PCP Internal Medicine; Visit Provider Surgery
DX: K80.10 Calculus of gallbladder with chronic cholecystitis without obstruction (principal)
CPT/HCPCS: 99024

== ENCOUNTER → 2023-07-11 13:47 | Outpatient (BNVA) | payer BC, MEDICAID, SELFPAY | PROVIDERS: PCP Internal Medicine; Visit Provider Surgery ==

== ENCOUNTER → 2023-08-26 09:04 | Outpatient (REF) | payer MEDICAID, SELFPAY ==
--- NOTE | 2023-08-26 09:07 | CA_ITS ---
Acquisition Time: 2023-08-26 09:07:59 Total Exercise Time: 00:06:06 Test Indications: FATIGUE Medications: ATROVASTIN Protocol: LOI Max HR: 164 BPM 84% of Pred: 193 BPM Max BP: 140/080 mmHG Max Work Load: 7.1 METS Exercise stress test exercise 6 min 6 sec of Loi protocol achieving 83% MPHR with request to stop due to hip and back pain and legs unable to keep up, with 3/10 left side tightness, no SOB, without arrhythmias, with normotensive responmse to exercise, without EKG changes at achieved workload. Chest tightness resolved iwth rest. Test reviewed with Dr. Murphy Referred By: Sathya Murphy Overread By: Amanda Don
== END ==
LOC: HO.CARD 09:04
PROVIDERS: PCP Internal Medicine; Visit Provider Internal Medicine Cardiovascular Disease
DX: R53.83 Other fatigue (principal); E78.5 Hyperlipidemia, unspecified
CPT/HCPCS: 93017

== ENCOUNTER 2023-10-03 10:13 | Outpatient (REF) | payer BC, MEDICAID, SELFPAY ==
[2023-10-04 13:44] LABS: BV Int Neg Control Negative (Negative); BV Int Pos Control Positive (Positive)
== END 2023-10-03 10:14 | disposition home or self-care (01) ==
LOC: HO.LNP 10:13
PROVIDERS: PCP Internal Medicine; Visit Provider Advanced Practice Midwife
DX: Z01.419 Encounter for gynecological examination (general) (routine) without abnormal findings (principal); L72.9 Follicular cyst of the skin and subcutaneous tissue, unspecified; N89.8 Other specified noninflammatory disorders of vagina
CPT/HCPCS: 87480; 87510; 87660

== ENCOUNTER 2023-10-03 10:13 | Outpatient (AMB) | payer BC, MEDICAID, SELFPAY ==
--- NOTE | 2023-10-03 10:20 | MHC.OFFVIS ---
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 Intake Note: Cyst on the left breast and felt a bump Masonry Teacher Required: No Information Interpreted: non-clinical & clinical Senior It Assistant: Senior It Assistant Present (Aidyn) Allergies cortisone Allergy (Intermediate, Verified 10/03/23 10:23) from cream-Rx for rash & rash spread (childhood) Influenza Virus Vaccines Allergy (Intermediate, Verified 10/03/23 10:23) Hives latex Allergy (Intermediate, Verified 10/03/23 10:23) Rash Is last menstrual period known: Yes Last menstrual period: 09/27/23 Post menopausal: No HPI HPI Comments History of Present Illness Details She is a premenopausal woman presenting for annual examination. Doing well with concerns: non tender, funny feeling in the left breast. and a cyst on the left rib cage. Had a referral for this/tear to dermatology and did not get a call for an appointment. She tries to eat healthy and does not exercise. Regular monthly menses. Declines control. Open to a future . Currently is sexually active. She denies vaginal itching, irritation, reports an odor STI screening offered; she declines. Denies family history of breast, ovarian or colon cancer. Last pap smear 2021, negative. COUNT INCLUDES THE [facility] Medical History Renal calculi Female bladder prolapse Mediastinal mass HLD (hyperlipidemia) Vitamin D deficiency Multinodular thyroid Corpus luteum cyst of right ovary Anxiety Asthma Depression GERD (gastroesophageal reflux disease) Surgical History Hx laparoscopic cholecystectomy (~07/03/23) Family History Mother Diabetes HTN (hypertension) Early menopause Father Diabetes Maternal Aunt Thyroid disease Social History Household Members: Family Household Members Other:: father & minor child Housing: House Are you a primary medical care evaluation specialist to a significant other at home: Yes Do you presently have visiting nurse or other home services: No Alcohol intake: current Alcohol intake frequency: does not drink Patient Tobacco Use Status: Current someday Tobacco user Tobacco use type: Cigarette Cigarettes Per Day: 4 Years Smoked: 12 Substance Use Type: Marijuana Current occupational status: employed 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 Sexual orientation: Straight/Heterosexual Gender identity: Female Female Reproductive History Menstrual Age of Menarche: 12 Duration of menses: 3-5 days Date of last menstrual period: 09/27/23 control method: none Total pregnancies: 2 Full term: 1 Ab spontaneous: 1 Date of last pap smear: 08/22/22 (negative) Review of Systems Const All systems reviewed & are unremarkable except as noted in HPI and below Reports as per HPI Eyes Reports no additional complaints ENT Reports no additional complaints Card Reports no additional complaints Resp Reports no additional complaints GI Reports as per HPI and Reports no additional complaints Reports as per HPI Musc Reports no additional complaints Skin/Breast Reports as per HPI Neuro Reports no additional complaints Psych Reports no additional complaints Endo Reports no additional complaints Иван/Lymph Reports no additional complaints Aller/Immun Reports no additional complaints Physical Exam Vital Signs: Last Vital Signs BP 126/84 10/03/23 10:21 BMI result Body Mass Index 31.6 Const General: cooperative, healthy appearing, no acute distress, well developed and alert Orientation/consciousness: patient oriented x3 HEENT Head: Yes normal to inspection Eyes General: appearance normal, both eyes and all related structures Neck Neck: Yes normal visual inspection Thyroid: Thyroid normal Chest Other: Suspect she can feel in her structures in the breast due to her weight loss. They are consistent with normal breast findings. Chest palpation & inspection: normal inspection of the chest and other (no puckering, dimpling, peau de orange, retraction, discharge, masses) Breast/axilla inspection: normal inspection of the breasts Breast/axilla palpation: normal palpation of the breasts Resp Effort & Inspection: normal respiratory effort GI Inspection: Yes normal to inspection Palpation (GI): Soft to palpation Rectal Exam - Female: deferred General: Yes bladder normal to palpation External Female Exam: normal external appearance and normal appearance of the urethra Speculum Exam - Vagina: normal appearance of the vagina, normal palpation and normal vaginal discharge Speculum Exam - Cervix: normal appearance of the cervix and normal palpation Bimanual exam- vagina & uterus: normal bimanual exam, normal palpation, uterine size normal, bladder normal to palpation, normal palpation and non-tender Bimanual Exam- Adnexa, other: no masses Skin Other: 1 cm skin cyst at the left flank, nontender. General skin exam: no rashes or lesions noted Rashes: no rashes Neuro General: patient oriented x3 Cognition (Neuro): normal cognition Extrem General: Yes normal to inspection Psych Attitude: cooperative Thought process: Normal thought process present Assessment & Plan Assessment & Plan (1) Encounter for well woman exam with routine gynecological exam: Code(s): Z01.419 - Encounter for gynecological examination (general) (routine) without abnormal findings Plan Discussed: Current recommendations for pap smears per ASCCP guidelines. Breast awareness and periodic breast exams. Maintain a healthy lifestyle including a well balanced diet and routine exercise. Counseled regarding pre planning including tobacco cessation. Restart vitamins, Rx sent in. If any unusual changes or any breast lumps occurred to please notify the office for further follow-up. Dermatology referral placed for skin cyst. Advised if she has not heard from the balling head tender appointment within 2 weeks to call the office, and also to check with her insurance plan for coverage to that specific provider. Reassured normal breast exam today. All of her questions and concerns were addressed to the best of my ability. RTO in one year for annual hotel room attendant examination. Orders: Orders Bacterial Vaginosis Panel Today L72.9 - Follicular cyst of the skin and subcutaneous tissue, unspecified, N89.8 - Other specified noninflammatory disorders of vagina Referrals Dermatology Referral L72.9 - Follicular cyst of the skin and subcutaneous tissue, unspecified Medications: New PNV,calcium 23-riii-xighe acid 27 mg iron- 1 mg ( Vitamins Plus Low Iron) 1 tab PO DAILY 90 tabs 4RF Coding Level of Care Code Est Pt Prev Care 18-39y(03690) Diagnoses Encounter for well woman exam with routine gynecological exam Z01.419
[2023-10-03 10:21] VITALS: BP 126/84; BMI 31.6
== END 2023-10-03 10:51 | disposition home or self-care (01) ==
PROVIDERS: PCP Internal Medicine; Visit Provider Advanced Practice Midwife
DX: Z01.419 Encounter for gynecological examination (general) (routine) without abnormal findings (principal)
CPT/HCPCS: 99395

== ENCOUNTER 2023-10-07 07:30 | Day surgery (SDC) | payer BC, MEDICAID, SELFPAY ==
[2023-10-03 09:40] VITALS: BMI 35.3
--- NOTE | 2023-10-04 09:14 | HO.ANESPROP2 ---
Documented by User: Brittany Hooper NP 10/04/23 09:16 HPI - Anesthesia Eval Consult details Narrative: 28yo F for Upper Endoscopy PMFSH Active Problems Active Problems: All Active Problems (Updated 10/03/23 @ 09:05 by Tati Matthews RN) Cholelithiasis with chronic cholecystitis (Acute) Pelvic floor weakness (Acute) Recurrent UTI (Acute) Urinary frequency (Acute) Urinary incontinence (Acute) Complex cyst of right ovary (Acute) Cystocele (Acute) Mediastinal mass (Acute) HLD (hyperlipidemia) (Acute) Vitamin D deficiency (Acute) Multinodular thyroid (Acute) Corpus luteum cyst of right ovary (Acute) Past Medical History Medical History Renal calculi Female bladder prolapse Mediastinal mass HLD (hyperlipidemia) Vitamin D deficiency Multinodular thyroid Corpus luteum cyst of right ovary Anxiety Asthma Depression GERD (gastroesophageal reflux disease) Family History Family History Mother Diabetes HTN (hypertension) Early menopause Father Diabetes Maternal Aunt Thyroid disease Family history of problems with anesthesia: No Surgical History Surgical History Hx laparoscopic cholecystectomy (~07/03/23) Social History Social History Household Members: Family Household Members Other:: father & minor child Housing: House Are you a primary home care companion to a significant other at home: Yes Do you presently have visiting nurse or other home services: No Alcohol intake: current Alcohol intake frequency: does not drink Patient Tobacco Use Status: Current someday Tobacco user Tobacco use type: Cigarette Cigarettes Per Day: 4 Years Smoked: 12 Use of substances other than those prescribed or required for medical reasons: Yes Substance Use Type: Marijuana Substance Use Frequency: Daily Have you been hit, kicked, punched, or otherwise hurt by someone within the past year? 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 Sexual orientation: Straight/Heterosexual Gender identity: Female Meds Allergies Allergy/AdvReac Type Severity Reaction Status Date / Time cortisone Allergy Intermediate from Verified 10/03/23 10:23 cream-Rx for rash & rash spread (childhood) Influenza Virus Vaccines Allergy Intermediate Hives Verified 10/03/23 10:23 latex Allergy Intermediate Rash Verified 10/03/23 10:23 Home Medications Medication Instructions Recorded Confirmed Last Taken Type Lactobacillus 1 cap PO DAILY 04/01/23 10/03/23 Unknown History acidophilus-Bifidobac.animalis 31 billion cell capsule (Dermacinrx Probitran) cholecalciferol (vitamin D3) 25 25 mcg PO DAILY 04/01/23 10/03/23 Unknown History mcg (1,000 unit) capsule Exam Height,Weight and Vital Signs: Height 5 ft 4.25 in Weight 93.894 kg Assessment and Plan Assessment Anesthesia Assessment: Chart Reviewed Final Anesthetic Review Family History of Problems with Anesthesia: No Documented by User: Sara Back MD 10/07/23 08:08 [facility] Past Medical History Medical History Renal calculi Female bladder prolapse Mediastinal mass HLD (hyperlipidemia) Vitamin D deficiency Multinodular thyroid Corpus luteum cyst of right ovary Anxiety Asthma Depression GERD (gastroesophageal reflux disease) Family History Family History Mother Diabetes HTN (hypertension) Early menopause Father Diabetes Maternal Aunt Thyroid disease Surgical History Surgical History Hx laparoscopic cholecystectomy (~07/03/23) History of Problems with Anesthesia: No Social History Social History Household Members: Family Household Members Other:: father & minor child Housing: House Are you a primary home care companion to a significant other at home: Yes Do you presently have visiting nurse or other home services: No Alcohol intake: current Alcohol intake frequency: does not drink Patient Tobacco Use Status: Current someday Tobacco user Tobacco use type: Cigarette Cigarettes Per Day: 4 Years Smoked: 12 Use of substances other than those prescribed or required for medical reasons: Yes Substance Use Type: Marijuana Substance Use Frequency: Daily Have you been hit, kicked, punched, or otherwise hurt by someone within the past year? 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 Sexual orientation: Straight/Heterosexual Gender identity: Female Meds Allergies Allergy/AdvReac Type Severity Reaction Status Date / Time cortisone Allergy Intermediate from Verified 10/03/23 10:23 cream-Rx for rash & rash spread (childhood) Influenza Virus Vaccines Allergy Intermediate Hives Verified 10/03/23 10:23 latex Allergy Intermediate Rash Verified 10/03/23 10:23 Home Medications Medication Instructions Recorded Confirmed Last Taken Type Lactobacillus 1 cap PO DAILY 04/01/23 10/03/23 Unknown History acidophilus-Bifidobac.animalis 31 billion cell capsule (Dermacinrx Probitran) cholecalciferol (vitamin D3) 25 25 mcg PO DAILY 04/01/23 10/03/23 Unknown History mcg (1,000 unit) capsule Exam Airway Mallampati Class: II TM Dist: >3cm Neck ROM: Full Denture: Upper (broken teeth upper left , bass notified ) Heart: rrr Lungs: cta Assessment and Plan Final Anesthetic Review History of Problems with Anesthesia: No NPO: Yes ASA Class: III Final Preanesthetic Review: No Changes in Pt Med Stat, Meds/Allgs Chart Reviewed, Consent Obtained/Reviewed and Anes Risks/Benef Reviewed Patient Risk: Intermediate Procedure Risk: Low Anesthetic Plan Anesthetic Plan: MAC: Disposition: Standard PACU
[2023-10-07 07:49] VITALS: BP 138/83; PULSE 68; RESP 16; TEMP 36.6; O2SAT 99; BMI 30.8
[2023-10-07 08:57] LABS: HCG Quantitative < 2 mIU/mL
--- NOTE | 2023-10-07 09:57 | PM.OP ---
Brief Operative Note Date of Service: 10/07/23 Pre-op diagnosis: GERD, abdominal pain Post-op diagnosis: other (Hiatal hernia, GERD) Procedure: EGD with biopsies Surgeon: Xiang Nelson MD Anesthesia: MAC Was an Licensed Practical Vocational Nurse used for this Procedure?: No Estimated blood loss (mL): 2.0 Pathology: other (A. Descending duodenum B. EG Junction at 35cm C. Gastric antrum) Condition: stable Disposition: PACU
[2023-10-07 09:58] VITALS: BP 99/54; PULSE 101; RESP 16; TEMP 36.1; O2SAT 98
[2023-10-07 10:15] VITALS: BP 126/73; PULSE 77; RESP 16; TEMP 36.7; O2SAT 100
--- NOTE | 2023-10-07 10:29 | OP_ITS ---
DATE OF SERVICE: 10/07/2023 SURGEON: Xiang Nelson MD INDICATIONS: The patient presents for evaluation of gastroesophageal reflux and abdominal pain. Full consent was obtained from her for this, including risks of bleeding and perforation. PREOPERATIVE DIAGNOSIS: POSTOPERATIVE DIAGNOSIS: PROCEDURE PERFORMED: Esophagogastroduodenoscopy with biopsies. ESTIMATED BLOOD LOSS: COMPLICATIONS: ANESTHESIA: Medication used; monitored anesthesia care. ASSISTANTS: SPECIMENS: PREOPERATIVE DIAGNOSES: Gastroesophageal reflux and abdominal pain. POSTOPERATIVE DIAGNOSES: Gastroesophageal reflux and abdominal pain, hiatal hernia, rule out celiac disease. DESCRIPTION OF PROCEDURE: The patient was placed in the left lateral decubitus position. The Olympus video gastroscope was passed in the posterior oropharynx and upper esophagus under direct vision. The scope was passed slowly into the distal esophagus. The gastroesophageal junction appeared at 35 cm. There was some slight irregularity consistent with reflux, but no evidence of esophagitis nor any definitive Luna mucosa. The scope entered the stomach. There was a small hiatal hernia. The scope was advanced to pylorus and the duodenum was cannulated to the descending portion. The duodenum including the bulb appeared normal without mass or ulceration. Biopsies were obtained from the 2nd and 3rd portions of duodenum. The scope was withdrawn back in the stomach. The gastric antrum and body appeared normal with good peristalsis. Biopsies were obtained from the antrum. The scope was retroflexed visualizing the proximal stomach carefully, which appeared normal, without any sign of mass or ulceration. The scope was straightened and withdrawn back into the esophagus. Biopsies were obtained at the EG junction at 35 cm. Proximal to that the esophageal mucosa appeared normal. The scope was withdrawn from the patient. She tolerated the procedure well and was returned to the recovery area in stable condition. IMPRESSION: 1. Hiatal hernia, gastroesophageal reflux. 2. Rule out celiac disease. PLAN: The results of biopsies will be checked. She has been advised to continue her PPI, but I have recommended that she use that at least once a day, but increased to twice a day if need be. She will continue her hyoscyamine for the irritable bowel syndrome. She was advised to see me again in the office for a followup visit. She does report relief of her right upper quadrant discomfort after her cholecystectomy earlier this year. MD ANIA Deal/GERMAN / [phone]
== END 2023-10-07 10:45 | disposition home or self-care (01) ==
PROVIDERS: PCP Internal Medicine; Visit Provider Internal Medicine
PROC: 0DJ08ZZ Inspection of Upper Intestinal Tract, Via Natural or Artificial Opening Endoscopic (ICD-10-PCS; CPT 43235; principal; 2023-10-07 11:30)
DX: K44.9 Diaphragmatic hernia without obstruction or gangrene (principal); K21.9 Gastro-esophageal reflux disease without esophagitis; K58.9 Irritable bowel syndrome, unspecified; E78.5 Hyperlipidemia, unspecified; E04.2 Nontoxic multinodular goiter; J45.909 Unspecified asthma, uncomplicated; J98.59 Other diseases of mediastinum, not elsewhere classified; F17.210 Nicotine dependence, cigarettes, uncomplicated; F12.90 Cannabis use, unspecified, uncomplicated; Z87.440 Personal history of urinary (tract) infections; Z79.02 Long term (current) use of antithrombotics/antiplatelets; Z79.899 Other long term (current) drug therapy
CPT/HCPCS: 43239; 36415; 84702; 88305; 88342; J2704

== ENCOUNTER 2023-12-04 13:01 | Outpatient (AMB) | payer MEDICAID, SELFPAY ==
--- NOTE | 2023-12-04 13:03 | MHC.OFFVIS ---
Intake Vital Signs 12/04/23 13:04 Height 5 ft 4.25 in Weight 190 lb 11.198 oz BMI 32.5 BP 110/76 Blood Pressure Location Lt brachial Position Sitting Pulse 66 Pulse Source Pulse Oximeter Intake Visit Reasons: Thyroid Nodule-confirmed Intake Note: Patient present today for Thyroid nodule office visit. Last seen by Dr. Levine on 05/22/23. Bar Pointer Required: No Accompanied by: Self / Same As Patient Allergies cortisone Allergy (Intermediate, Verified 12/04/23 13:16) from cream-Rx for rash & rash spread (childhood) Influenza Virus Vaccines Allergy (Intermediate, Verified 12/04/23 13:16) Hives latex Allergy (Intermediate, Verified 12/04/23 13:16) Rash Medication List - Last Reconciled 12/04/23 by Xiang De Jesus MD atorvastatin 80 mg PO BEDTIME 30 days calcitriol 0.25 mcg PO DAILY calcium carbonate (Calcium) 600 mg PO DAILY ezetimibe 10 mg PO DAILY 30 days L. acidophilus/Bifid. animalis 31 billion cell (Dermacinrx Probitran) 1 cap PO DAILY levothyroxine 125 mcg PO DAILY HPI HPI Comments History of Present Illness Details 28 YO Female with a PMHx of HLD who is seen in F/U for a NTMNG. Patient last saw Dr. Levine 05/22/2023 1) HLD She reports a longstanding history of HLD with LDL well over 200. She has a strong family history of HLD in all family members, and her Mother suffered an UT in her 40's. She is currently using Atorvastatin 20 mg PO daily, and has not repeated her lipid panel in 1 years time. She does have xanethlasma of her eyelids. She has a 6 year old daughter and is unsure if she has had a lipid panel. She does complain of palpitations and symptoms of reflux, but no chest pain currently. 2) Multinodular thyroid She underwent an US of the neck 10/31/2022 which revealed multiple large thyroid nodules. She does complain of compressive symptoms with pressure in the neck while lying flat and occasional dysphagia. She denies any vocal hoarseness. TFTs were WNL. She underwent FNA biopsy 01/17/2023 of her left mid pole 4.3 cm, isthmus 3.2 cm and right isthmus 1.6 cm thyroid nodules, all with benign cytology. She underwent a CT of the neck and chest which revealed a mediastinal component of the thyroid with mass effect on the trachea. She was referred to Dr. Chavez and has her initial consultation for a thyroidectomy 06/07/2023. Thyroid US: 10/31/2022 Right Thyroid Lobe: 5.5 x 2.1 x 1.6 cm, volume 10.0 mL. Parenchyma: The gland echotexture is heterogeneous. Thyroid vascularity is increased. Left Thyroid Lobe: 7.0 x 3.2 x 1.9 cm, volume 22 mL. Parenchyma: The gland echotexture is heterogeneous. Thyroid vascularity is increased. Isthmus: 0.5 cm in maximum AP dimension. Estimated total number of nodules greater than or equal to 1 cm: 5. Office Rep nodules are described as follows: 1. Location: Isthmus. ?? ? Size: 3.2 x 1.9 x 3.2 cm, volume 10.2 mL. ?? ? Nodule characteristics: ?? ? Composition: Solid (2). ?? ? Echogenicity: Isoechoic (1). ?? ? Shape: Not taller than wide (0). ?? ? Margins: Smooth (0). ?? ? Echogenic Foci: None (0). ?? ? ACR TI-RADS total points: 3. ?? ? ACR TI-RADS category: 3. 2. Location: Right inferior. ?? ? Size: 1.0 x 0.7 x 0.7 cm, volume 0.2 mL. ?? ? Nodule characteristics: ?? ? Composition: Solid/almost completely solid (2). ?? ? Echogenicity: Isoechoic (1). ?? ? Shape: Not taller than wide (0). ?? ? Margins: Lobulated (2). ?? ? Echogenic Foci: None (0). ?? ? ACR TI-RADS total points: 5. ?? ? ACR TI-RADS category: 4. 3. Location: Right medial inferior. ?? ? Size: 1.6 x 1.1 x 1.5 cm, volume 1.4 mL. ?? ? Nodule characteristics: ?? ? Composition: Solid (2). ?? ? Echogenicity: Isoechoic (1). ?? ? Shape: Not taller than wide (0). ?? ? Margins: Ill-defined (0). ?? ? Echogenic Foci: None (0). ?? ? ACR TI-RADS total points: 3 ?? ? ACR TI-RADS category: 3 4. Location: Left superior. ?? ? Size: 1.3 x 0.9 x 1.5 cm, volume 0.9 mL. ?? ? Nodule characteristics: ?? ? Composition: Solid (2). ?? ? Echogenicity: Isoechoic (1). ?? ? Shape: Not taller than wide (0). ?? ? Margins: Lobulated (2). ?? ? Echogenic Foci: None (0). ?? ? ACR TI-RADS total points: 5. ?? ? ACR TI-RADS category: 4. 5.? Location: Left inferior. ?? ? Size: 4.3 x 2.7 x 3.1 cm, volume 18.3 mL. ?? ? Nodule characteristics: ?? ? Composition: Solid (2). ?? ? Echogenicity: Isoechoic (1). ?? ? Shape: Not taller than wide (0). ?? ? Margins: Ill-defined (0). ?? ? Echogenic Foci: Macrocalcifications (1). ?? ? ACR TI-RADS total points: 4. ?? ? ACR TI-RADS category: 4. NODES: No lymphadenopathy is seen in the tissue surrounding the thyroid gland. ADDITIONAL FINDINGS: There is isoechoic to hypoechoic lesion inferior to right thyroid lobe with minimal vascularity measuring 1.0 x 0.5 x 0.6 cm. Labs: Laboratory Tests 01/21/23 11:30 TSH 0.64 Status post total thyroidectomy with benign pathology.Thyroidectomy 10/21. Currently on 125 mcg levothyroxine. Had bloodwork on 11/25/2023 . Having anxiety post-surgical - increased anger . Experiencing parethesias [facility] Medical History Renal calculi Female bladder prolapse Mediastinal mass HLD (hyperlipidemia) Vitamin D deficiency Multinodular thyroid Corpus luteum cyst of right ovary Anxiety Asthma Depression GERD (gastroesophageal reflux disease) Surgical History History of thyroid surgery Hx laparoscopic cholecystectomy (~07/03/23) Family History Mother Diabetes HTN (hypertension) Early menopause Father Diabetes Maternal Aunt Thyroid disease Social History Household Members: Family Household Members Other:: father & minor child Housing: House Are you a primary care information associate to a significant other at home: Yes Do you presently have visiting nurse or other home services: No Alcohol intake: current Alcohol intake frequency: does not drink Patient Tobacco Use Status: Current someday Tobacco user Tobacco use type: Cigarette Cigarettes Per Day: 4 Years Smoked: 12 Substance Use Type: Marijuana Current occupational status: employed 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 Sexual orientation: Straight/Heterosexual Gender identity: Female Female Reproductive History Menstrual Age of Menarche: 12 Physical Exam Vital Signs: Last Vital Signs Pulse 66 12/04/23 13:04 BP 110/76 12/04/23 13:04 BMI result Body Mass Index 32.5 Const Other: Healing scar status post thyroidectomy for Assessment & Plan Assessment & Plan (1) Multinodular thyroid: Comment: scheduled for partial thyroidectomy 10/2023 @ [facility] Code(s): E04.2 - Nontoxic multinodular goiter Plan: This 28-year-old white female status post total thyroidectomy with post-surgical hypothyroidism. Currently being replaced on 125 mcg levothyroxine. She is also taking calcitriol 0.25 mcg daily and calcium 600 mg q.d.. Plan is to check recent TSH, free T4 and calcium that was done at [facility] reference lab and adjust calcitriol and levothyroxine accordingly. Patient also has a follow-up with (2) HLD (hyperlipidemia): Code(s): E78.5 - Hyperlipidemia, unspecified Plan: Currently on high-dose statin and ezetimibe. Will check recent lipid profile that was done at [facility] reference lab. Is followed by cardiology Dr. Rashid. May need PCSK9 inhibitor in addition to statin and ezetimibe in this patient with familial hypercholesterolemia. If this does not managed by Cardiology, endocrinology would need to initiate the PCSK9 inhibitor Coding Level of Care Code Est Pt Level 3 (84405) Diagnoses Multinodular thyroid E04.2 HLD (hyperlipidemia) E78.5
[2023-12-04 13:04] VITALS: BP 110/76; PULSE 66; BMI 32.5
== END 2023-12-04 13:51 | disposition home or self-care (01) ==
PROVIDERS: PCP Internal Medicine; Referring Provider Internal Medicine; Visit Provider Internal Medicine Endocrinology, Diabetes & Metabolism
DX: E04.2 Nontoxic multinodular goiter (principal); E78.5 Hyperlipidemia, unspecified
CPT/HCPCS: 99213

== ENCOUNTER → 2023-12-04 13:01 | Outpatient (BNVA) | payer MEDICAID, SELFPAY | PROVIDERS: PCP Internal Medicine; Visit Provider Internal Medicine Endocrinology, Diabetes & Metabolism | DX: E04.2 Nontoxic multinodular goiter (principal); E78.5 Hyperlipidemia, unspecified | CPT/HCPCS: 99212 ==

== ENCOUNTER 2024-01-24 08:47 | Outpatient (REF) | payer MEDICAID, SELFPAY ==
[2024-01-24 09:15] LABS: MANUAL DIFF FLAG NO
[2024-01-24 09:50] LABS: Basophils Absolute Auto 0.1 X10*3/uL (0.0-0.2); Basophils Percent Auto 0.5 % (0-2); Eosinophils Absolute Auto 0.5 X10*3/uL (0.0-0.4); Eosinophils Percent Auto 3.5 % (0-4); Hematocrit 45.3 % (37.0-47.0); Hemoglobin 14.8 g/dl (12.0-16.0); Imm Gran Abs Auto 0.05 X10*3/uL (0.00-0.03); Imm Gran Pct Auto 0.4 % (0.0-0.4); Lymphocytes Absolute Auto 3.2 X10*3/uL (1.2-4.9); Lymphocytes Percent Auto 24.5 % (20-40); Mean Corpuscular HGB Conc 32.7 g/dl (31.0-35.0); Mean Corpuscular Hemoglobin 29.2 pg (27.0-33.0); Mean Corpuscular Volume 89.3 fL (80.0-98.0); Mean Platelet Volume 10.3 fL (9.4-12.3); Monocytes Absolute Auto 0.7 X10*3/uL (0.1-1.2); Monocytes Percent Auto 5.6 % (2-11); Neutrophils Absolute Auto 8.6 x10*3/uL (2.0-8.3); Neutrophils Percent Auto 65.5 % (45-73); Platelet Count 300 X10*3/uL (160-400); Red Blood Count 5.07 X10*6/uL (4.20-5.50); Red Cell Distribution Width 13.7 % (11.0-16.0); White Blood Count 13.2 X10*3/uL (4.8-10.8)
[2024-01-24 10:32] LABS: Erythrocyte Sedimentation Rate 21 MM/HR (0-20)
[2024-01-24 11:18] LABS: Albumin Level 3.3 g/dL (3.5-5.0); Calcium 8.9 mg/dL (8.4-10.2); Cholesterol 191 mg/dL (<200); HDL Cholesterol 52 mg/dL (>40); LDL Cholesterol Calculated 120 mg/dL (<100); Phosphorus 3.8 mg/dL (2.7-4.5); Triglycerides 95 mg/dL (<150)
[2024-01-24 11:19] LABS: Alanine Aminotransferase 16 U/L (0-31); Albumin Level 3.4 g/dL (3.5-5.0); Alkaline Phosphatase 76 U/L (39-117); Anion Gap 10 (12-20); Aspartate Amino Transferase 13 U/L (5-31); Bilirubin Total 1.2 mg/dL (0.0-1.0); Blood Urea Nitrogen 19 mg/dL (9-16); C Reactive Protein 0.29 mg/dL (< or = 0.50); Calcium 8.9 mg/dL (8.4-10.2); Carbon Dioxide 25 mmol/L (22-29); Chloride 109 mmol/L (96-108); Estimated Glomerular Filt Rate > 60; Glucose Fasting 86 mg/dL (60-99); Phosphorus 3.8 mg/dL (2.7-4.5); Potassium 4.1 mmol/L (3.3-5.1); Sodium 140 mmol/L (135-145); Total Protein 6.6 g/dL (6.5-8.0)
[2024-01-24 11:36] LABS: Free T4 (Free Thyroxine) 1.14 ng/dL (0.71-1.85); Thyroid Stimulating Hormone 0.33 uIU/mL (0.32-4.0)
[2024-01-24 11:38] LABS: Vitamin B12 457 pg/mL (200-900)
[2024-01-24 11:39] LABS: Free T4 (Free Thyroxine) 1.12 ng/dL (0.71-1.85); Thyroid Stimulating Hormone 0.32 uIU/mL (0.32-4.0); Vitamin D 25-OH Total 39.5 ng/mL (>30)
== END 2024-01-24 08:48 | disposition home or self-care (01) ==
LOC: HO.LAB 08:47
PROVIDERS: Absent Provider Internal Medicine; PCP Internal Medicine; Visit Provider Internal Medicine Endocrinology, Diabetes & Metabolism
DX: E04.2 Nontoxic multinodular goiter (principal); E55.9 Vitamin D deficiency, unspecified; E78.5 Hyperlipidemia, unspecified; E20.9 Hypoparathyroidism, unspecified; E78.00 Pure hypercholesterolemia, unspecified; E03.9 Hypothyroidism, unspecified; R25.2 Cramp and spasm
CPT/HCPCS: 36415; 80053; 80061; 82040; 82306; 82310; 82550; 82607; 83970; 84100; 84439; 84443; 85025; 85652; 86140

== ENCOUNTER 2024-02-21 14:31 | Outpatient (REF) | payer MEDICAID, SELFPAY ==
[2024-02-21 15:51] LABS: Influenza A PCR NEGATIVE (Negative); Influenza B PCR POSITIVE (Negative); Resp Syncy Virus RNA Qual PCR NEGATIVE (Negative); SARS COV2 PCR INHOUSE NEGATIVE (Negative)
== END 2024-02-21 14:32 | disposition home or self-care (01) ==
LOC: HO.LNP 14:31
PROVIDERS: Visit Provider Internal Medicine
DX: Z11.52 Encounter for screening for COVID-19 (principal); R05.9 Cough, unspecified
CPT/HCPCS: 0241U

== ENCOUNTER 2024-02-24 16:03 | Outpatient (AMB) | payer MEDICAID, SELFPAY ==
--- NOTE | 2024-02-24 16:06 | A.OFFVIS_ITS ---
Vital Signs 02/24/24 16:07 Height 5 ft 4.25 in Weight 184 lb 8.43 oz BMI 31.4 BP 148/96 H Blood Pressure Location Rt brachial Position Sitting Pulse 84 Pulse Source Pulse Oximeter Intake Visit Reasons: NTMNG F/U/LVM Intake Note: Patient presents today for NTMNG follow up. Patient reports she has been getting on and off rash since after the surgery. Patient reports itching, swelling and burning. Has used Benadryl cream. She states she has seen a Orthotics Assistant. Patient reports if she misses a dose of her medication she does not have full control of her limbs which is causing problems at wrong. Funeral Pre Arrangement Counselor Required: No Accompanied by: Self / Same As Patient Allergies cortisone Allergy (Intermediate, Verified 02/24/24 16:13) from cream-Rx for rash & rash spread (childhood) Influenza Virus Vaccines Allergy (Intermediate, Verified 02/24/24 16:13) Hives latex Allergy (Intermediate, Verified 02/24/24 16:13) Rash doxycycline Adverse Reaction (Unknown, Verified 02/24/24 16:13) Vomiting Medication List - Last Reconciled 02/24/24 by Xiang De Jessu MD atorvastatin 80 mg PO BEDTIME 30 days calcitriol 0.25 mcg PO DAILY calcium carbonate (Calcium 600) 600 mg PO DAILY ezetimibe 10 mg PO DAILY L. acidophilus/Bifid. animalis 31 billion cell (Dermacinrx Probitran) 1 cap PO DAILY levothyroxine 125 mcg PO DAILY HPI Comments Details: 28 YO Female with a PMHx of HLD who is seen in F/U for a NTMNG. She reports a longstanding history of HLD with LDL well over 200. She has a strong family history of HLD in all family members, and her Mother suffered an MO in her 40's. She is currently using Atorvastatin 20 mg PO daily, and has not repeated her lipid panel in 1 years time. She does have xanethlasma of her eyelids. She has a 6 year old daughter and is unsure if she has had a lipid panel. She does complain of palpitations and symptoms of reflux, but no chest pain currently. 2) Multinodular thyroid She underwent an US of the neck 10/31/2022 which revealed multiple large thyroid nodules. She does complain of compressive symptoms with pressure in the neck while lying flat and occasional dysphagia. She denies any vocal hoarseness. TFTs were WNL. She underwent FNA biopsy 01/17/2023 of her left mid pole 4.3 cm, isthmus 3.2 cm and right isthmus 1.6 cm thyroid nodules, all with benign cytology. She underwent a CT of the neck and chest which revealed a mediastinal component of the thyroid with mass effect on the trachea. She was referred to Dr. Chavez and has her initial consultation for a thyroidectomy 06/07/2023. Thyroid US: 10/31/2022 Right Thyroid Lobe: 5.5 x 2.1 x 1.6 cm, volume 10.0 mL. Parenchyma: The gland echotexture is heterogeneous. Thyroid vascularity is increased. Left Thyroid Lobe: 7.0 x 3.2 x 1.9 cm, volume 22 mL. Parenchyma: The gland echotexture is heterogeneous. Thyroid vascularity is increased. Isthmus: 0.5 cm in maximum AP dimension. Estimated total number of nodules greater than or equal to 1 cm: 5. Tacking Machine Operator nodules are described as follows: 1. Location: Isthmus. ?? ? Size: 3.2 x 1.9 x 3.2 cm, volume 10.2 mL. ?? ? Nodule characteristics: ?? ? Composition: Solid (2). ?? ? Echogenicity: Isoechoic (1). ?? ? Shape: Not taller than wide (0). ?? ? Margins: Smooth (0). ?? ? Echogenic Foci: None (0). ?? ? ACR TI-RADS total points: 3. ?? ? ACR TI-RADS category: 3. 2. Location: Right inferior. ?? ? Size: 1.0 x 0.7 x 0.7 cm, volume 0.2 mL. ?? ? Nodule characteristics: ?? ? Composition: Solid/almost completely solid (2). ?? ? Echogenicity: Isoechoic (1). ?? ? Shape: Not taller than wide (0). ?? ? Margins: Lobulated (2). ?? ? Echogenic Foci: None (0). ?? ? ACR TI-RADS total points: 5. ?? ? ACR TI-RADS category: 4. 3. Location: Right medial inferior. ?? ? Size: 1.6 x 1.1 x 1.5 cm, volume 1.4 mL. ?? ? Nodule characteristics: ?? ? Composition: Solid (2). ?? ? Echogenicity: Isoechoic (1). ?? ? Shape: Not taller than wide (0). ?? ? Margins: Ill-defined (0). ?? ? Echogenic Foci: None (0). ?? ? ACR TI-RADS total points: 3 ?? ? ACR TI-RADS category: 3 4. Location: Left superior. ?? ? Size: 1.3 x 0.9 x 1.5 cm, volume 0.9 mL. ?? ? Nodule characteristics: ?? ? Composition: Solid (2). ?? ? Echogenicity: Isoechoic (1). ?? ? Shape: Not taller than wide (0). ?? ? Margins: Lobulated (2). ?? ? Echogenic Foci: None (0). ?? ? ACR TI-RADS total points: 5. ?? ? ACR TI-RADS category: 4. 5.? Location: Left inferior. ?? ? Size: 4.3 x 2.7 x 3.1 cm, volume 18.3 mL. ?? ? Nodule characteristics: ?? ? Composition: Solid (2). ?? ? Echogenicity: Isoechoic (1). ?? ? Shape: Not taller than wide (0). ?? ? Margins: Ill-defined (0). ?? ? Echogenic Foci: Macrocalcifications (1). ?? ? ACR TI-RADS total points: 4. ?? ? ACR TI-RADS category: 4. NODES: No lymphadenopathy is seen in the tissue surrounding the thyroid gland. ADDITIONAL FINDINGS: There is isoechoic to hypoechoic lesion inferior to right thyroid lobe with minimal vascularity measuring 1.0 x 0.5 x 0.6 cm. Labs: Laboratory Tests 01/21/23 11:30 TSH 0.64 Status post total thyroidectomy with benign pathology.Thyroidectomy 10/21. Currently on 125 mcg levothyroxine. Had bloodwork on 11/25/2023 . Experiencing parethesias and numbness in body post-surgically Having bouts of uticaria while on levothyroxine [facility] Medical History (Updated 02/24/24 @ 16:25 by Xiang De Jesus MD) Post-operative hypothyroidism Renal calculi Female bladder prolapse Mediastinal mass HLD (hyperlipidemia) Vitamin D deficiency Multinodular thyroid Corpus luteum cyst of right ovary Anxiety Asthma Depression GERD (gastroesophageal reflux disease) Surgical History History of thyroid surgery Hx laparoscopic cholecystectomy (~07/03/23) Family History Mother Diabetes HTN (hypertension) Early menopause Father Diabetes Maternal Aunt Thyroid disease Social History Household Members: Family Household Members Other:: father & minor child Housing: House Are you a primary senior resident care director to a significant other at home: Yes Do you presently have visiting nurse or other home services: No Alcohol intake: current Alcohol intake frequency: does not drink Patient Tobacco Use Status: Current someday Tobacco user Tobacco use type: Cigarette Cigarettes Per Day: 4 Years Smoked: 12 Substance Use Type: Marijuana Current occupational status: employed 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 There is a negative [place] sign Assessment & Plan Assessment & Plan (1) HLD (hyperlipidemia): Code(s): E78.5 - Hyperlipidemia, unspecified Category: Medical Plan: Currently on high-dose statin and ezetimibe. Will check recent lipid profile that was done at [facility] reference lab. Is followed by cardiology Dr. Rashid. May need PCSK9 inhibitor in addition to statin and ezetimibe in this patient with familial hypercholesterolemia. If this does not managed by Cardiology, endocrinology would need to initiate the PCSK9 inhibitor. I also wonder with some muscular and/or joint pains are related to statin and perhaps the PCSK9 inhibitor could be given with ezetimibe to see if the symptoms resolve (2) Post-operative hypothyroidism: Code(s): E89.0 - Postprocedural hypothyroidism Category: Medical Plan: 28-year-old white female status post total thyroidectomy for multinodular goiter. She is currently on levothyroxine 125 mcg appears to be clinically euthyroid was experiencing urticaria. I wonder whether the experience in the levothyroxine causing some of the symptoms. Plan is to change the levothyroxine to branded tirosint 125 ug and then check TSH and free T4-6 weeks later. She is following up with Dr. Chavez regarding postoperative hypoparathyroidism and he is going to check a calcium and decide whether to discontinue the calcitriol. Orders: Orders Free T4 (Free Thyroxine) 6 Weeks E89.0 - Postprocedural hypothyroidism Thyroid Stimulating Hormone 6 Weeks E89.0 - Postprocedural hypothyroidism Medications: New Tirosint (levothyroxine) 125 mcg PO DAILY 30 caps 5RF NS Tirosint (levothyroxine) 125 mcg PO DAILY 30 caps 5RF NS Discontinued levothyroxine Discontinued Reason: Doctor's Order 125 mcg PO DAILY 30 caps 5RF Coding Level of Care Code Est Pt Level 3 (29380) Diagnoses HLD (hyperlipidemia) E78.5 Post-operative hypothyroidism E89.0
[2024-02-24 16:07] VITALS: BP 148/96; PULSE 84; BMI 31.4
== END 2024-02-24 16:42 | disposition home or self-care (01) ==
PROVIDERS: PCP Internal Medicine; Referring Provider Internal Medicine; Visit Provider Internal Medicine Endocrinology, Diabetes & Metabolism
DX: E78.5 Hyperlipidemia, unspecified (principal); E89.0 Postprocedural hypothyroidism
CPT/HCPCS: 99213

== ENCOUNTER → 2024-02-24 16:03 | Outpatient (BNVA) | payer MEDICAID, SELFPAY | PROVIDERS: PCP Internal Medicine; Visit Provider Internal Medicine Endocrinology, Diabetes & Metabolism | DX: E78.5 Hyperlipidemia, unspecified (principal); E89.0 Postprocedural hypothyroidism | CPT/HCPCS: 99212 ==

== ENCOUNTER 2024-03-09 22:08 | Emergency (ER) | payer MEDICAID, SELFPAY ==
--- NOTE | ~2024-03-09 | CT_ITS ---
EXAMINATION: CT ABDOMEN AND PELVIS WITHOUT CONTRAST CLINICAL INFORMATION: Right-sided flank pain COMPARISON: Ultrasound abdomen limited 06/14/2023 TECHNIQUE: Multidetector volumetric imaging was performed from the superior aspect of the liver through the pubic symphysis. Sagittal and coronal reformatted images were obtained on the technologist's workstation. This CT examination was performed using dose optimization techniques as appropriate, variously including the following: *Automated exposure control *Adjustment of mA and/or kV according to patient size (this includes techniques or standardized protocols for targeted exams where dose is matched to indication/reason for exam; i.e. extremities or head) *Use of iterative reconstruction technique DLP: 749 mGy-cm FINDINGS: LUNG BASES: The visualized lung bases are unremarkable. LIVER, GALLBLADDER, AND BILIARY TREE: The liver is normal in size, shape, and attenuation. No focal hepatic lesion or biliary ductal dilatation is present. The gallbladder is absent. PANCREAS: Unremarkable. SPLEEN: Unremarkable. ADRENAL GLANDS: Unremarkable. KIDNEYS AND URETERS: 2 mm punctate nephrolith central left kidney nonobstructive. No other nephroliths. No hydronephrosis or mass or perinephric collection. There is no evidence for calcifications along the course of the ureters. BLADDER: Unremarkable. GASTROINTESTINAL TRACT: Large stool burden in the rectosigmoid. No bowel obstruction or right or left lower quadrant inflammatory change. The appendix is not visualized. ABDOMINAL WALL: Small umbilical fat-containing hernia. Bowel does not participate. LYMPH NODES: Normal. VASCULAR: Minimal atherosclerotic change at the aortoiliac bifurcation. PELVIC VISCERA: Small bilateral ovarian physiologic cysts. OSSEOUS STRUCTURES: Degenerative changes at the lumbosacral junction. CT/CT abdomen pelvis wo IV con IMPRESSION: No acute abnormalities. No evidence for right hydronephrosis or nephrolithiasis. There is no evidence for an acute right lower quadrant inflammatory process as questioned. Fleischner guidelines were followed.
[2024-03-09 22:48] VITALS: PULSE 94; RESP 19; TEMP 36.4; O2SAT 96; BMI 32.8
[2024-03-10 01:29] VITALS: BP 135/81; PULSE 83; RESP 18; TEMP 36.8; O2SAT 98
[2024-03-10 04:00] VITALS: BP 135/90; PULSE 80; RESP 16; TEMP 36.2; O2SAT 97
[2024-03-10] MEDS: Acetaminophen 325 MG TABLET 975 MG PO (05:47)
[2024-03-10] MEDS: Ibuprofen 400 MG TABLET PO (05:47)
[2024-03-10] MEDS: Lidocaine 4 % Patch ADH..PATCH 1 PATCH TRANSDERMA (05:48)
[2024-03-10 06:01] VITALS: BP 123/76; PULSE 78; RESP 16; TEMP 36.7; O2SAT 98
--- NOTE | 2024-03-10 06:13 | ED_ITS ---
HPI - Back Pain/Injury General Chief Complaint: Back Pain/Injury Stated Complaint: lower back pain Time Seen by Provider: 03/10/24 05:18 Source: patient Mode of arrival: ambulatory History of Present Illness ED Provider: Dr Castro HPI Narrative: 28-year-old female who reports that for a little over 1 week she has been experiencing significant lower back discomfort right greater than left and denies any traumatic injury preceding the lower back discomfort but denies any associated fevers, chills and no bowel or bladder issues. She has seen her primary care doctor for this and has been placed on muscle relaxers with some benefit. She also reports a history renal colic and that she has been required to take more calcium than usual lately, though she does take it with plenty of water, due to her recent thyroid surgery which was complicated with injury to the parathyroid gland. Related Data Home Medications ?Medication ?Instructions ?Recorded ?Confirmed Lactobacillus 1 cap PO DAILY 04/01/23 10/03/23 acidophilus-Bifidobac.animalis 31 billion cell capsule (Dermacinrx Probitran) calcitriol 0.25 mcg capsule 0.25 mcg PO DAILY 12/04/23 Previous Rx's ?Medication ?Instructions ?Recorded atorvastatin 80 mg tablet 80 mg PO BEDTIME 30 days #30 tabs 11/29/22 ezetimibe 10 mg tablet 10 mg PO DAILY #90 tabs 02/19/24 Tirosint 125 mcg capsule 125 mcg PO DAILY #30 caps 02/24/24 (levothyroxine) calcium carbonate (Calcium 600) 600 mg PO DAILY #30 tabs 03/09/24 Allergies Allergy/AdvReac Type Severity Reaction Status Date / Time cortisone Allergy Intermediate from Verified 03/09/24 22:57 cream-Rx for rash & rash spread (childhood) Influenza Virus Vaccines Allergy Intermediate Hives Verified 03/09/24 22:57 latex Allergy Intermediate Rash Verified 03/09/24 22:57 doxycycline AdvReac Unknown Vomiting Verified 03/09/24 22:57 Review of Systems Review of Systems: Pertinent positives and negatives as stated in HPI [facility] Past Medical History Source: nursing notes reviewed Medical History Post-operative hypothyroidism Renal calculi Female bladder prolapse Mediastinal mass HLD (hyperlipidemia) Vitamin D deficiency Multinodular thyroid Corpus luteum cyst of right ovary Anxiety Asthma Depression GERD (gastroesophageal reflux disease) Surgical History History of thyroid surgery Hx laparoscopic cholecystectomy (~07/03/23) Family History Family History Mother Diabetes HTN (hypertension) Early menopause Father Diabetes Maternal Aunt Thyroid disease Social History Social History Household Members: Family Household Members Other:: father & minor child Housing: House Are you a primary resident care assistant to a significant other at home: Yes Do you presently have visiting nurse or other home services: No Alcohol intake: current Alcohol intake frequency: does not drink Patient Tobacco Use Status: Current someday Tobacco user Tobacco use type: Cigarette Cigarettes Per Day: 4 Years Smoked: 12 Substance Use Type: Marijuana Advance Directives: No Do you have a plan to hurt others: No Plan Current occupational status: employed 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 GENERAL: Well developed, well nourished, in no acute distress. HEAD: Normocephalic/atraumatic EYES: PERRLA, EOMI EARS: Ext canals without abnormality NOSE: Nares patent bilateral OROPHARYNX: no oral lesions noted, posterior pharynx clear NECK: Supple, no adenopathy LUNGS: Normal breath sounds. No adventitious sounds or accessory muscle use. SpO2<98> CARDIOVASCULAR: Regular rate and rhythm without noted murmurs ABDOMEN: Soft, non-tender, non-distended with bowel sounds. BACK: No midline vertebral spine tenderness to palpation or step-offs noted MUSCULOSKELETAL: No tenderness, deformities, or effusions noted on gross inspection. EXTREMITIES: No cyanosis, clubbing or edema. SKIN: Inspection of the skin reveals no rashes NEUROLOGIC: Alert and oriented x 4. Strength and sensation to light touch were grossly intact x 4. Medications Administered Discontinued Medications Generic Name Dose Route Start Last Admin Trade Name Jermaine PRN Reason Stop Dose Admin Acetaminophen 975 mg 03/10/24 05:25 03/10/24 05:47 Acetaminophen 325 Mg Tablet PO 03/10/24 05:26 975 mg ONCE ONE Administration Ibuprofen 400 mg 03/10/24 05:25 03/10/24 05:47 Ibuprofen 400 Mg Tablet PO 03/10/24 05:26 400 mg ONCE ONE Administration Lidocaine 1 patch 03/10/24 05:25 03/10/24 05:48 Lidocaine 4 % Patch Adh..Patch TRANSDERMA 03/10/24 05:26 1 patch ONCE ONE Administration Protocol Medical Decision Making Medical Decision Making [facility] Narrative: 28-year-old female with history and clinical presentation most consistent with acute on chronic back pain with likely associated muscle spasm, no history or evidence to suggest sciatica but possibility of lumbar radiculopathy, will rule out urinary tract infection but low clinical suspicion for renal colic given the absence of fever/chills/nausea/vomiting as well as distribution of pain is inconsistent. Urinalysis is negative for UTI or hematuria and urine is negative. Patient received combination analgesics and lidocaine patch. Signed out to Dr. Grimm to follow-up CT scan abdomen and pelvis. Differential Diagnosis Differential Diagnoses: The differential diagnosis associated with the presentation includes Please see the discussion above Admission/Observation Consideration of admission/observation: Escalation of care including admission/observation considered Please see the discussion above Lab Data [facility] Lab Attestation statement: I reviewed the patient's lab results. Please see the discussion above Labs: Lab Results 03/10/24 Range/Units 06:03 Urine Color Dark Yellow Urine Appearance Clear Urine pH 5.5 (5.0-9.0) Ur Specific [place] 1.025 (1.005-1.025) Urine Protein Negative (Neg-Trace) mg/dL Urine Glucose (UA) Negative (Negative) mg/dL Urine Ketones 40 (Negative) mg/dL Urine Blood Negative (Negative) Urine Nitrite Negative (Negative) Ur Leukocyte Esterase Negative (Negative) Urine Test NEGATIVE (NEGATIVE) Discharge Plan Discharge Clinical Impression: Acute exacerbation of chronic low back pain, Lumbar radiculopathy Patient Disposition: Still a Patient Prescriptions: No Action atorvastatin 80 mg tablet 80 mg PO BEDTIME 30 Days Qty: 30 11RF ezetimibe 10 mg tablet 10 mg PO DAILY Qty: 90 3RF calcium carbonate [Calcium 600] 600 mg calcium (1,500 mg) tablet 600 mg PO DAILY Qty: 30 3RF Dermacinrx Probitran 31 billion cell capsule 1 cap PO DAILY calcitriol 0.25 mcg capsule 0.25 mcg PO DAILY levothyroxine [Tirosint] 125 mcg capsule 125 mcg PO DAILY Qty: 30 5RF Print Language: Portuguese
[2024-03-10 06:15] LABS: Appearance Urine Clear; Color Urine Dark Yellow; Glucose Urine UA Negative (Negative); Leukocyte Esterase Urine Negative (Negative); Nitrite Urine Negative (Negative); PH 5.5 (5.0-9.0); Specific Gravity - Urine 1.025 (1.005-1.025); Urine Blood Negative (Negative); Urine Ketones 40 mg/dL (Negative); Urine Protein Negative (Neg-Trace)
[2024-03-10 06:19] LABS: UPreg QC Valid YES; Urine Pregnancy NEGATIVE (NEGATIVE)
[2024-03-10 09:08] VITALS: BP 123/76; PULSE 78; RESP 16; TEMP 36.7; O2SAT 98
== END 2024-03-10 09:09 | disposition home or self-care (01) ==
PROVIDERS: Student in an Organized Health Care Education/Training Program; Emergency Provider Emergency Medicine; PCP Internal Medicine
DX: M54.16 Radiculopathy, lumbar region (principal); M54.50 Low back pain, unspecified; G89.29 Other chronic pain; J45.909 Unspecified asthma, uncomplicated; K21.9 Gastro-esophageal reflux disease without esophagitis
CPT/HCPCS: 74176; 81003; 81025; 99283; 99284

== ENCOUNTER 2024-04-01 08:46 | Outpatient (REF) | payer MEDICAID, SELFPAY ==
[2024-04-01 10:11] LABS: Free T4 (Free Thyroxine) 1.36 ng/dL (0.71-1.85); Thyroid Stimulating Hormone 0.09 uIU/mL (0.32-4.0)
== END 2024-04-01 08:47 | disposition home or self-care (01) ==
LOC: HO.LAB 08:46
PROVIDERS: PCP Internal Medicine; Visit Provider Internal Medicine Endocrinology, Diabetes & Metabolism
DX: E89.0 Postprocedural hypothyroidism (principal); R07.89 Other chest pain; E78.5 Hyperlipidemia, unspecified
CPT/HCPCS: 36415; 84439; 84443; 99212

== ENCOUNTER 2024-04-01 11:34 | Outpatient (AMB) | payer MEDICAID, SELFPAY ==
--- NOTE | 2024-04-01 11:42 | A.OFFVIS_ITS ---
Vital Signs 04/01/24 11:43 Height 5 ft 4 in Weight 182 lb 15.739 oz BMI 31.4 BP 120/74 Blood Pressure Location Lt brachial Position Sitting Pulse 78 Intake Visit Reasons: follow-up after ruy mibi Intake Note: Follow-up doesn't have stress test yet concern about CT showed ACVD Clip And Hanger Attacher Required: No Allergies cortisone Allergy (Intermediate, Verified 03/09/24 22:57) from cream-Rx for rash & rash spread (childhood) Influenza Virus Vaccines Allergy (Intermediate, Verified 03/09/24 22:57) Hives latex Allergy (Intermediate, Verified 03/09/24 22:57) Rash doxycycline Adverse Reaction (Unknown, Verified 03/09/24 22:57) Vomiting Medication List - Last Reviewed 04/01/24 by CLARA Lala atorvastatin 80 mg PO BEDTIME 30 days calcitriol 0.25 mcg PO DAILY calcium citrate 200 mg PO DAILY ezetimibe 10 mg PO DAILY lidocaine 5% 1 patch topical DAILY Tirosint (levothyroxine) 125 mcg PO DAILY NS HPI Comments Details: Triny comes for follow-up. She had a suboptimal stress test for her age in the past with nondiagnostic stress test as there was suboptimal heart rate and she had symptoms of shortness of breath and left-sided chest tightness. She was advised vasodilating myocardial perfusion imaging but this is not been completed as he had due to various reasons. She comes for follow-up. She continues to have symptoms. Her predominant complaint currently is low back pain and numbness in the lower extremity. The pain started acutely few weeks ago. Patient has multiple other different symptoms. Echocardiogram done last year was within normal limits. CT scan done showed minimal atherosclerotic changes at the aortoiliac junction. Her lipids are not completely well optimized on high-intensity statin therapy as well as ezetimibe therapy. [facility] Medical History Post-operative hypothyroidism Renal calculi Female bladder prolapse Mediastinal mass HLD (hyperlipidemia) Vitamin D deficiency Multinodular thyroid Corpus luteum cyst of right ovary Anxiety Asthma Depression GERD (gastroesophageal reflux disease) Surgical History History of thyroid surgery Hx laparoscopic cholecystectomy (~07/03/23) Family History Mother Diabetes HTN (hypertension) Early menopause Father Diabetes Maternal Aunt Thyroid disease Social History Household Members: Family Household Members Other:: father & minor child Housing: House Are you a primary healthcare applications analyst to a significant other at home: Yes Do you presently have visiting nurse or other home services: No Alcohol intake: current Alcohol intake frequency: does not drink Patient Tobacco Use Status: Current someday Tobacco user Tobacco use type: Cigarette Cigarettes Per Day: 4 Years Smoked: 12 Substance Use Type: Marijuana Current occupational status: employed 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 Sexual orientation: Straight/Heterosexual Gender identity: Female Female Reproductive History Menstrual Age of Menarche: 12 Review of Systems Const Denies chills, Denies daytime sleepiness, Denies fatigue, Denies fever(s), Rd es frequent falls, Denies poor appetite, Denies snoring, Denies stops breathing during sleep, Denies weakness, Denies weight gain and Denies weight loss Eyes Denies loss of vision ENT Denies dizziness and Denies hearing loss Card Denies chest pain, Denies claudication, Denies leg edema, Denies lightheadedness, Denies palpitations, Denies dyspnea, Denies dyspnea on exertion and Denies orthopnea Resp Denies cough, Denies excessive phlegm production, Denies dyspnea, Denies dyspnea on exertion, Denies snoring and Denies wheezing GI Denies abdominal pain, Denies hematochezia, Denies change in bowel habits, Denies nausea and Denies vomiting Denies urinary frequency and Denies dysuria Musc Denies arthralgias, Denies muscle weakness, Denies numbness and Denies other (frequent falls) Skin/Breast Denies nail changes and Denies rash Neuro Denies Abnormal speech present, Denies dizziness, Denies frequent falls, Denies loss of vision, Denies memory loss, Denies numbness and Denies weakness Psych Denies depression and Denies memory loss Endo Denies fatigue and Denies palpitations Иван/Lymph Reports easy bruising and Reports other (anemia) Aller/Immun Denies wheezing Physical Exam Vital Signs: Last Vital Signs Pulse 78 04/01/24 11:43 BP 120/74 04/01/24 11:43 BMI result Body Mass Index 31.4 Const General: cooperative, comfortable, no acute distress, alert and awake Nutritional Appearance: overweight Orientation/consciousness: patient oriented x3 Neck Neck: Yes trachea midline, Yes supple and Yes no JVD Resp Effort & Inspection: normal respiratory effort Auscultation: clear to auscultation bilaterally Cardio Jugular venous distension: no JVD Rate: regular rate Rhythm: regular rhythm Heart sounds: S1 normal heart sound present, S2 normal heart sound present, no click, no gallops, no murmurs and no rubs GI Auscultation: normal bowel sounds Skin General skin exam: no rashes or lesions noted Neuro General: patient oriented x3 and no focal motor deficits Speech: No Abnormal speech present Extrem General: Yes no clubbing, cyanosis or edema Assessment & Plan Assessment & Plan (1) Atypical chest pain: Code(s): R07.89 - Other chest pain Plan: Atypical chest pain in this young woman with suboptimal stress test due to symptoms of shortness of breath and chest tightness along with orthopedic issues could not get a full diagnose stress test. At this point time would suggest to pursue vasodilating myocardial perfusion imaging. Although likelihood of myocardial ischemia is low. This was discussed with her. Echocardiogram is within normal limits. If the myocardial perfusion imaging within normal limits no further testing is indicated noncardiac causes of her symptoms should be pursued. (2) HLD (hyperlipidemia): Code(s): E78.5 - Hyperlipidemia, unspecified Category: Medical Plan: Hyperlipidemia with familial hypercholesterolemia and history of atherosclerotic disease prematurely. She also has evidence of atherosclerosis on abdominal CT imaging showing mild atherosclerotic changes in the aortoiliac junction. I discussed with her that this is unlikely the cause of her back pain which was acute onset as well as sciatic sounding pain in both her lower extremity. He has no evidence of vascular insufficiency. However given presence of early atherosclerosis at her age I would strongly suggest aggressive lipid modifi cation agree with endocrine that she would benefit from PCSK9 inhibitor therapy. Target goal LDL closer to 60 mg/dL. This was discussed with her. Will follow up if the stress test is abnormal. Thank you for allowing me to partake in her care Coding Level of Care Code Est Pt Level 4 (20239) Diagnoses Atypical chest pain R07.89 HLD (hyperlipidemia) E78.5
[2024-04-01 11:43] VITALS: BP 120/74; PULSE 78; BMI 31.4
== END 2024-04-01 12:04 | disposition home or self-care (01) ==
PROVIDERS: PCP Internal Medicine; Referring Provider Internal Medicine Cardiovascular Disease; Visit Provider Internal Medicine Cardiovascular Disease
DX: R07.89 Other chest pain (principal); E78.5 Hyperlipidemia, unspecified
CPT/HCPCS: 99214

== ENCOUNTER 2024-04-08 13:33 | Outpatient (AMB) | payer MEDICAID, SELFPAY ==
--- NOTE | 2024-04-08 13:38 | A.OFFVIS_ITS ---
Vital Signs 04/08/24 13:39 Height 5 ft 4 in Weight 189 lb 13.088 oz BMI 32.6 BP 112/70 Blood Pressure Location Lt brachial Position Sitting Pulse 65 Pulse Source Pulse Oximeter Intake Visit Reasons: post-surgical hypothyroidism/hypoparathyroidism Intake Note: Patient present today for NTMNG follow up visit. Patient previously seen by Dr. Levine on 03/04/23. Technology Education Teacher Required: No Accompanied by: Self / Same As Patient Allergies cortisone Allergy (Intermediate, Verified 04/08/24 13:43) from cream-Rx for rash & rash spread (childhood) Influenza Virus Vaccines Allergy (Intermediate, Verified 04/08/24 13:43) Hives latex Allergy (Intermediate, Verified 04/08/24 13:43) Rash doxycycline Adverse Reaction (Unknown, Verified 04/08/24 13:43) Vomiting Medication List - Last Reconciled 04/08/24 by Xiang De Jesus MD atorvastatin 80 mg PO BEDTIME 30 days calcitriol 0.25 mcg PO DAILY calcium citrate 200 mg PO DAILY ezetimibe 10 mg PO DAILY lidocaine 5% 1 patch topical DAILY Tirosint (levothyroxine) 125 mcg PO DAILY NS HPI Comments Details: 28 YO Female with a PMHx of HLD who is seen in F/U for a post-surgical hypothyroidism and hypoparathyroidism She reports a longstanding history of HLD with LDL well over 200. She has a strong family history of HLD in all family members, and her Mother suffered an VT in her 40's. She is currently using Atorvastatin 20 mg PO daily, and has not repeated her lipid panel in 1 years time. She does have xanethlasma of her eyelids. She has a 6 year old daughter and is unsure if she has had a lipid panel. She does complain of palpitations and symptoms of reflux, but no chest pain currently. 2) Multinodular thyroid She underwent an US of the neck 10/31/2022 which revealed multiple large thyroid nodules. She does complain of compressive symptoms with pressure in the neck while lying flat and occasional dysphagia. She denies any vocal hoarseness. TFTs were WNL. She underwent FNA biopsy 01/17/2023 of her left mid pole 4.3 cm, isthmus 3.2 cm and right isthmus 1.6 cm thyroid nodules, all with benign cytology. She underwent a CT of the neck and chest which revealed a mediastinal component of the thyroid with mass effect on the trachea. She was referred to Dr. Chavez and has her initial consultation for a thyroidectomy 06/07/2023. Thyroid US: 10/31/2022 Right Thyroid Lobe: 5.5 x 2.1 x 1.6 cm, volume 10.0 mL. Parenchyma: The gland echotexture is heterogeneous. Thyroid vascularity is increased. Left Thyroid Lobe: 7.0 x 3.2 x 1.9 cm, volume 22 mL. Parenchyma: The gland echotexture is heterogeneous. Thyroid vascularity is increased. Isthmus: 0.5 cm in maximum AP dimension. Estimated total number of nodules greater than or equal to 1 cm: 5. Tool Setter nodules are described as follows: 1. Location: Isthmus. ?? ? Size: 3.2 x 1.9 x 3.2 cm, volume 10.2 mL. ?? ? Nodule characteristics: ?? ? Composition: Solid (2). ?? ? Echogenicity: Isoechoic (1). ?? ? Shape: Not taller than wide (0). ?? ? Margins: Smooth (0). ?? ? Echogenic Foci: None (0). ?? ? ACR TI-RADS total points: 3. ?? ? ACR TI-RADS category: 3. 2. Location: Right inferior. ?? ? Size: 1.0 x 0.7 x 0.7 cm, volume 0.2 mL. ?? ? Nodule characteristics: ?? ? Composition: Solid/almost completely solid (2). ?? ? Echogenicity: Isoechoic (1). ?? ? Shape: Not taller than wide (0). ?? ? Margins: Lobulated (2). ?? ? Echogenic Foci: None (0). ?? ? ACR TI-RADS total points: 5. ?? ? ACR TI-RADS category: 4. 3. Location: Right medial inferior. ?? ? Size: 1.6 x 1.1 x 1.5 cm, volume 1.4 mL. ?? ? Nodule characteristics: ?? ? Composition: Solid (2). ?? ? Echogenicity: Isoechoic (1). ?? ? Shape: Not taller than wide (0). ?? ? Margins: Ill-defined (0). ?? ? Echogenic Foci: None (0). ?? ? ACR TI-RADS total points: 3 ?? ? ACR TI-RADS category: 3 4. Location: Left superior. ?? ? Size: 1.3 x 0.9 x 1.5 cm, volume 0.9 mL. ?? ? Nodule characteristics: ?? ? Composition: Solid (2). ?? ? Echogenicity: Isoechoic (1). ?? ? Shape: Not taller than wide (0). ?? ? Margins: Lobulated (2). ?? ? Echogenic Foci: None (0). ?? ? ACR TI-RADS total points: 5. ?? ? ACR TI-RADS category: 4. 5.? Location: Left inferior. ?? ? Size: 4.3 x 2.7 x 3.1 cm, volume 18.3 mL. ?? ? Nodule characteristics: ?? ? Composition: Solid (2). ?? ? Echogenicity: Isoechoic (1). ?? ? Shape: Not taller than wide (0). ?? ? Margins: Ill-defined (0). ?? ? Echogenic Foci: Macrocalcifications (1). ?? ? ACR TI-RADS total points: 4. ?? ? ACR TI-RADS category: 4. NODES: No lymphadenopathy is seen in the tissue surrounding the thyroid gland. ADDITIONAL FINDINGS: There is isoechoic to hypoechoic lesion inferior to right thyroid lobe with minimal vascularity measuring 1.0 x 0.5 x 0.6 cm. Labs: Laboratory Tests 01/21/23 11:30 TSH 0.64 Status post total thyroidectomy with benign pathology.Thyroidectomy 10/21. Currently on 125 mcg Tirosint as well as calcitriol 0.25 ug QD. Missed a few doses of calcitriol and had hypocalcemic symptoms [facility] Medical History (Updated 04/08/24 @ 13:45 by Xiang De Jesus MD) Hypoparathyroidism Post-operative hypothyroidism Renal calculi Female bladder prolapse Mediastinal mass HLD (hyperlipidemia) Vitamin D deficiency Multinodular thyroid Corpus luteum cyst of right ovary Anxiety Asthma Depression GERD (gastroesophageal reflux disease) Surgical History History of thyroid surgery Hx laparoscopic cholecystectomy (~07/03/23) Family History Mother Diabetes HTN (hypertension) Early menopause Father Diabetes Maternal Aunt Thyroid disease Social History Household Members: Family Household Members Other:: father & minor child Housing: House Are you a primary out of school hours care worker to a significant other at home: Yes Do you presently have visiting nurse or other home services: No Alcohol intake: current Alcohol intake frequency: does not drink Patient Tobacco Use Status: Current someday Tobacco user Tobacco use type: Cigarette Cigarettes Per Day: 4 Years Smoked: 12 Substance Use Type: Marijuana Current occupational status: employed 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 There is a negative [place] sign Assessment & Plan Assessment & Plan (1) Post-operative hypothyroidism: Code(s): E89.0 - Postprocedural hypothyroidism Category: Medical Plan: 28-year-old white female status post total thyroidectomy for multinodular goiter. She is currently on Tirosint 125 mcg. She appears to be clinically euthyroid but has a suppressed TSH level Plan is to decrease the Tirosint to 112 mcg and recheck TSH and free T4 in 6 weeks time (2) Hypoparathyroidism: Code(s): E20.9 - Hypoparathyroidism, unspecified Category: Medical Plan: Currently on calcium and calcitriol 0.25 mcg q.d. with low normal calcium levels. PTH is detectable but low normal Continue current management. Most likely, hypoparathyroidism his permanent as patient had symptoms of hypocalcemia after missing a few doses of calcitriol Orders: Orders Thyroid Stimulating Hormone 6 Weeks E89.0 - Postprocedural hypothyroidism Free T4 (Free Thyroxine) 6 Weeks E89.0 - Postprocedural hypothyroidism Calcium 6 Weeks E20.9 - Hypoparathyroidism, unspecified Albumin Level 6 Weeks E20.9 - Hypoparathyroidism, unspecified Medications: New Tirosint (levothyroxine) 112 mcg PO DAILY 30 caps 5RF NS Discontinued Tirosint (levothyroxine) Discontinued Reason: Doctor's Order 125 mcg PO DAILY 30 caps 5RF NS Coding Level of Care Code Est Pt Level 3 (42844) Diagnoses Post-operative hypothyroidism E89.0 Hypoparathyroidism E20.9
[2024-04-08 13:39] VITALS: BP 112/70; PULSE 65; BMI 32.6
== END 2024-04-08 14:01 | disposition home or self-care (01) ==
PROVIDERS: PCP Internal Medicine; Referring Provider Internal Medicine; Visit Provider Internal Medicine Endocrinology, Diabetes & Metabolism
DX: E89.0 Postprocedural hypothyroidism (principal); E20.9 Hypoparathyroidism, unspecified
CPT/HCPCS: 99213

== ENCOUNTER → 2024-04-08 13:33 | Outpatient (BNVA) | payer MEDICAID, SELFPAY | PROVIDERS: PCP Internal Medicine; Visit Provider Internal Medicine Endocrinology, Diabetes & Metabolism | DX: E89.0 Postprocedural hypothyroidism (principal); E20.9 Hypoparathyroidism, unspecified | CPT/HCPCS: 99212 ==

== ENCOUNTER 2024-04-30 08:14 | Outpatient (AMB) | payer MEDICAID, SELFPAY ==
--- NOTE | 2024-04-30 08:29 | A.OFFVIS_ITS ---
Intake Visit Reasons: Follow up Intake Note: Patient is Present for PVR/ Urology Med: Oxybutynin, Macrobid Antibiotic Allergy: Doxycycline Blood Thinner: None Last PVR: 79 Todays PVR: 0 Patient states that both medications has been well, she does see improvement. She is requesting a refill on both medications Allergies cortisone Allergy (Intermediate, Verified 04/30/24 08:30) from cream-Rx for rash & rash spread (childhood) Influenza Virus Vaccines Allergy (Intermediate, Verified 04/30/24 08:30) Hives latex Allergy (Intermediate, Verified 04/30/24 08:30) Rash doxycycline Adverse Reaction (Unknown, Verified 04/30/24 08:30) Vomiting Medication List - Last Reconciled 04/30/24 by Anabel Donnelly MD atorvastatin 80 mg PO BEDTIME 30 days calcitriol 0.25 mcg PO DAILY calcium citrate 200 mg PO DAILY ezetimibe 10 mg PO DAILY lidocaine 5% 1 patch topical DAILY nitrofurantoin macrocrystal (Macrodantin) 50 mg orally Use after sexual activity; must administer with a meal/food oxybutynin chloride ER 5 mg PO DAILY Tirosint (levothyroxine) 112 mcg PO DAILY NS HPI Comments Details: 04/30/24--Triny is a 28-year-old female who is followed due to pelvic floor weakness, recurrent UTIs and urinary symptoms of urgency and urinary incontinence. The patient was referred to pelvic floor physical therapy. She did attend a couple of sessions and was discharged before completing therapy due to no-shows. She was prescribed oxybutynin for overactive bladder symptoms which she feels has helped significantly, however she still will leak occasionally if she has a strong urge. She was prescribed prophylactic antibiotics with intercourse, which has helped and she has not had issues with UTIs. She also has had symptoms of fecal incontinence, which today she has stated has improved. She complains today that during intercourse she feels that her bladder is moving, she feels that her bladder is low and she states there are a lot of air noises with intercourse. She states she can feel a bulge when standing. On examination in supine position I do not see any significant cystocele or rectocele with Valsalva. In standing position, vaginal bulge was not identified. The patient is able to perform a Kegel maneuver 2/5. I have discussed continuing to do Kegel exercises. She wants to be re-referred to physical therapy and she has a year ago and appointment in September for further evaluation. Review of chart: 11/29/22--27 year old female in July felt bulge vaginally, went to ED saw [employer]OTE [employer] UND[employer]WRITER August--I reviewed note, mild cystocele, no prolapse of uterus h/o recurrent UTI's, states last 9 months approximatel 3 - 4 UTI's h/o right kidney stones x 2 episodes - one episode was 6 years ago when she was I reviewed chart - renal sono 06/22/22- kidneys WNL, no stones Also c/o's urgency/freq associated with urine leakage she states will be seeing GI - has stomach issues, loose stools, and constipation seeing endocrine for thyroid nodules, had blood work today Evaluation today: UA - negative, cath PVR 15 mL, pelvic exam mild relaxation, no significant prolapse Plan: Discussed constipation/loose stools may contribute to episodes of UTI's as well as may be associated with intercourse, Macrodantin - 50 mg post intercourse, Pelvic floor PT, trial of oxybutynin 5 mg ER, FU 3 months [facility] Medical History Hypoparathyroidism Post-operative hypothyroidism Renal calculi Female bladder prolapse Mediastinal mass HLD (hyperlipidemia) Vitamin D deficiency Multinodular thyroid Corpus luteum cyst of right ovary Anxiety Asthma Depression GERD (gastroesophageal reflux disease) Surgical History History of thyroid surgery Hx laparoscopic cholecystectomy (~07/03/23) Family History Mother Diabetes HTN (hypertension) Early menopause Father Diabetes Maternal Aunt Thyroid disease Social History Household Members: Family Household Members Other:: father & minor child Housing: House Are you a primary manager home healthcare to a significant other at home: Yes Do you presently have visiting nurse or other home services: No Alcohol intake: current Alcohol intake frequency: does not drink Patient Tobacco Use Status: Current someday Tobacco user Tobacco use type: Cigarette Cigarettes Per Day: 4 Years Smoked: 12 Substance Use Type: Marijuana Current occupational status: employed 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 Sexual orientation: Straight/Heterosexual Gender identity: Female Female Reproductive History Menstrual Age of Menarche: 12 Review of Systems Const All systems reviewed & are unremarkable except as noted in HPI and below Reports no additional complaints Eyes Reports no additional complaints ENT Reports no additional complaints Card Reports no additional complaints Resp Reports no additional complaints GI Reports no additional complaints Reports as per HPI Musc Reports no additional complaints Skin/Breast Reports system reviewed and no additional complaints, except as documented Neuro Reports no additional complaints Psych Reports no additional complaints Endo Reports no additional complaints Иван/Lymph Reports no additional complaints Aller/Immun Reports no additional complaints Office Procedures Post Void Residual Post Residual Void Post Void Residual (PVR): 0 [id number] Void Residual by ultrasound Results AMB Urinalysis, Automated UA Leukoctes 15 Jose/uL Last Edit by Brittany Marrero Vanessa on 04/30/24 08:32 UA Nitrite Negative Last Edit by Brittany Marrero [facility] on 04/30/24 08:32 UA Urobilinogen 0.2 mg/dL Last Edit by Brittany Marrero [facility] on 04/30/24 08:3 2 UA Protein 15 mg/dL Last Edit by Brittany Marrero [facility] on 04/30/24 08:32 UA pH 5.5 Last Edit by Brittany Marrero Vanessa on 04/30/24 08:32 UA Blood 0 Mario/uL Last Edit by Brittany Marrero [facility] on 04/30/24 08:32 UA Specific [place] 1.030 Last Edit by CLARA Erickson on 04/30/24 08: 32 UA Ketone Negative Last Edit by Brittany Marrero [facility] on 04/30/24 08:32 UA Bilirubin 0 mg/dL Last Edit by Brittany Marrero [facility] on 04/30/24 08:32 UA Glucose 0 mg/dL Last Edit by Brittany Marrero [facility] on 04/30/24 08:32 Results Reviewed Results Reviewed: Laboratory Last Values Urine pH (Auto) 5.5 04/30/24 08:31 Specific [place] (Auto) 1.030 04/30/24 08:31 Urine Protein (Auto) 15 mg/dL 04/30/24 08:31 Glucose (UA)(Auto) 0 mg/dL 04/30/24 08:31 Urine Ketones (Auto) Negative 04/30/24 08:31 Urine Blood (Auto) 0 Mario/uL 04/30/24 08:31 Urine Nitrite (Auto) Negative 04/30/24 08:31 Urine Bilirubin (Auto) 0 mg/dL 04/30/24 08:31 Urine Urobilinogen (Auto) 0.2 mg/dL 04/30/24 08:31 Leukocyte Esterase (Auto) 15 Jose/uL 04/30/24 08:31 Date of Service: 06/22/22 US RETROPERITONEAL COMPLETE (RENAL) CLINICAL INFORMATION: Right kidney pain. Right lower quadrant pain. COMPARISON: None RIGHT KIDNEY: 9.7 x 3.4 x 5.4 cm (SAG x AP x TRV). The kidney is normal in size, contour, and echogenicity. Renal cortical thickness is normal. No calculi or focal parenchymal lesions. No hydronephrosis. LEFT KIDNEY: 10.7 x 5.0 x 6.2 cm (SAG x AP x TRV). The kidney is normal in size, contour, and echogenicity. Renal cortical thickness is normal. No calculi or focal parenchymal lesions. No hydronephrosis. BLADDER: Well distended and normal. Bilateral ureteral jets are demonstrated. Prevoid bladder volume is 181 mL. Postvoid bladder volume is 8.1 mL. ADDITIONAL FINDINGS: Incidental finding of echogenic gallstone with acoustic shadowing. CBD is normal measuring 0.33 cm. The gallbladder wall thickness is 0.27 cm. IMPRESSION: Unremarkable renal ultrasound.? Incidental finding of echogenic gallstone with minimal wall thickening. Assessment & Plan Assessment & Plan (1) Urinary incontinence: Code(s): R32 - Unspecified urinary incontinence Category: Medical (2) Urinary frequency: Code(s): R35.0 - Frequency of micturition Category: Medical (3) Recurrent UTI: Code(s): N39.0 - Urinary tract infection, site not specified Category: Medical (4) Vaginitis: Code(s): N76.0 - Acute vaginitis (5) Pelvic floor weakness: Code(s): N81.89 - Other female genital prolapse Category: Medical Plan Recurrent UTI's-Discussed constipation/loose stools may contribute to episodes of UTI's as well as may be associated with intercourse, Macrodantin - 50 mg post intercourse, Pelvic floor weakness/Urgency/UI: Re--referral to Pelvic floor PT, Overactive bladder- oxybutynin 5 mg ER, Orders: Orders AMB Urinalysis Automated Today N39.0 - Urinary tract infection, site not specified, Z13.9 - Encounter for screening, unspecified AMB Post Void Residual by ultrasound Today N39.0 - Urinary tract infection, site not specified Referrals Pelvic Dipping Machine Operator Referral N81.89 - Other female genital prolapse, R32 - Unspecified urinary incontinence, R35.0 - Frequency of micturition Medications: New nitrofurantoin macrocrystal (Macrodantin) 50 mg orally Use after sexual activity; must administer with a meal/food 30 caps 5RF oxybutynin chloride ER 5 mg PO DAILY 90 tabs 3RF Patient Instructions: The patient had an opportunity to ask questions regarding treatment plan. The patient expressed understanding and agreement with the above treatment plan. The patient is aware they should contact our office by phone for worsening of their current condition or the appearance of new symptoms. Compliance is encouraged with any medications and followup testing that is ordered. It is a privilege to be allowed the opportunity to participate in the urologic care of your patient. If you have any questions or concerns regarding treatment for the above conditions please do not hesitate to contact me. The office telephone contact is [phone]. This note is constructed in part using voice recognition software. While every effort has been made to ensure accuracy pathology secretary/transcriptionist errors may have been included. Yours sincerely, Anabel Donnelly MD Coding Level of Care Code Est Pt Level 4 (36991) Diagnoses Urinary incontinence R32 Urinary frequency R35.0 Recurrent UTI N39.0 Vaginitis N76.0 Pelvic floor weakness N81.89 CPT Codes Post Residual Void - PVR CPT Code: 31362-[id number] Void Residual by ultrasound ([id number])
== END 2024-04-30 09:27 | disposition home or self-care (01) ==
PROVIDERS: PCP Internal Medicine; Visit Provider Urology
DX: R35.0 Frequency of micturition (principal); N39.0 Urinary tract infection, site not specified; N76.0 Acute vaginitis; N81.89 Other female genital prolapse; Z13.9 Encounter for screening, unspecified
CPT/HCPCS: 99214

== ENCOUNTER → 2024-04-30 08:14 | Outpatient (BNVA) | payer MEDICAID, SELFPAY | PROVIDERS: PCP Internal Medicine; Visit Provider Urology | DX: R32 Unspecified urinary incontinence (principal); R35.0 Frequency of micturition; N39.0 Urinary tract infection, site not specified; N76.0 Acute vaginitis; N81.89 Other female genital prolapse | CPT/HCPCS: 51798; 81003; 99212 ==

== ENCOUNTER → 2024-05-08 09:28 | Outpatient (REF) | payer MEDICAID, SELFPAY ==
--- NOTE | ~2024-05-08 | NM_ITS ---
EXERCISE MYOCARDIAL PERFUSION STUDY INDICATION: Shortness of breath, chest discomfort TECHNIQUE: The patient was brought in for an exercise perfusion study on 05/08/2024. Patient performed exercise as per Madhav protocol and was injected 30 mCi of sestamibi once target heart rate was achieved. Images were obtained using the SPECT gamma camera interlaced with the gating device. Images were obtained in supine position. Resting perfusion study was performed on 05/27/2024. Patient was administered 30 mCi of sestamibi intravenously at rest. Images were then obtained in supine position. Images were processed with the software and compared side to side in short axis, horizontal long axis and vertical long axis views. Total DLP 117mGy-cm. FINDINGS: Raw images were reviewed. The stress perfusion study showed mildly diminished tracer uptake in the distal part of anterior wall. Based on appearance, could be artifactual. With CT attenuation correction, still noted. The gated study shows normal LV systolic function with calculated LVEF of 53%. LV cavity is normal in size. The gated study shows normal wall thickening and contraction of segments. Resting study shows diminished tracer uptake in the distal part of anterior wall, similar to the stress acquisition. Also seen with CT attenuation correction. Gating at rest reveals normal wall motion with ejection fraction at 63%. The findings are consistent with fixed distal anterior defect with normal contractility, suggestive of soft tissue attenuation artifact. MS/NM cardiolite stress test IMPRESSION: 1. Myocardial perfusion imaging study shows probably normal myocardial perfusion. 2. Gated LVEF is 53% during stress, but visually normal; 63% during rest. 3. Transient ischemic dilatation not present. EKG component of the test reported separately.
--- NOTE | 2024-05-08 09:32 | CA_ITS ---
Acquisition Time: 2024-05-08 09:39:38 Total Exercise Time: 00:07:10 Test Indications: Dyspnea Medications: ATPORVASTATIN LEVOTHYROXINE Protocol: LOI Max HR: 166 BPM 86% of Pred: 193 BPM Max BP: 156/060 mmHG Max Work Load: 8.2 METS Exercise stress test exercise 7 min 10 sec of Loi protocol achieving 86% MPHR, with mild ot moderate SOB, without arrhythmias, with normotensive response to exercise, without EKG changes. Nuclear images pending. Test reviewed with Dr. Murphy Referred By: Amanda Don Overread By: Amanda Don
== END ==
LOC: HO.CARD 09:28
PROVIDERS: PCP Internal Medicine; Visit Provider Nurse Practitioner
DX: R07.9 Chest pain, unspecified (principal); R53.83 Other fatigue; E78.5 Hyperlipidemia, unspecified
CPT/HCPCS: 78452; 93017; A9500; J0280; J2785

== ENCOUNTER → 2024-05-08 09:32 | Outpatient (BNV) | payer MEDICAID, SELFPAY | PROVIDERS: PCP Internal Medicine; Visit Provider Nurse Practitioner | DX: R06.02 Shortness of breath (principal) | CPT/HCPCS: 78452; 93016; 93018 ==

== ENCOUNTER 2024-07-15 09:39 | Outpatient (REF) | payer MEDICAID, SELFPAY ==
[2024-07-15 11:14] LABS: Albumin Level 3.7 g/dL (3.5-5.0); Calcium 9.5 mg/dL (8.4-10.2)
[2024-07-15 11:38] LABS: Free T4 (Free Thyroxine) 0.98 ng/dL (0.71-1.85); Thyroid Stimulating Hormone 2.81 uIU/mL (0.32-4.0)
== END 2024-07-15 09:40 | disposition home or self-care (01) ==
LOC: HO.LAB 09:39
PROVIDERS: Absent Provider Student in an Organized Health Care Education/Training Program; PCP Internal Medicine; Visit Provider Internal Medicine Endocrinology, Diabetes & Metabolism
DX: E20.9 Hypoparathyroidism, unspecified (principal); E89.0 Postprocedural hypothyroidism
CPT/HCPCS: 36415; 82040; 82310; 84439; 84443

== ENCOUNTER 2024-07-22 10:44 | Outpatient (AMB) | payer MEDICAID, SELFPAY ==
[2024-07-22 10:45] VITALS: BP 122/60; PULSE 85; BMI 31.0
--- NOTE | 2024-07-22 10:45 | A.OFFVIS_ITS ---
Vital Signs 07/22/24 10:45 Height 5 ft 4 in Weight 180 lb 12.465 oz BMI 31.0 BP 122/60 Blood Pressure Location Lt brachial Position Sitting Pulse 85 Pulse Source Monitor Intake Visit Reasons: fu stress and imaging Allergies cortisone Allergy (Intermediate, Verified 04/30/24 08:30) from cream-Rx for rash & rash spread (childhood) Influenza Virus Vaccines Allergy (Intermediate, Verified 04/30/24 08:30) Hives latex Allergy (Intermediate, Verified 04/30/24 08:30) Rash doxycycline Adverse Reaction (Unknown, Verified 04/30/24 08:30) Vomiting Medication List - Last Reconciled 07/22/24 by Sathya Murphy MD atorvastatin 80 mg PO BEDTIME 30 days calcitriol 0.25 mcg PO DAILY calcium citrate 200 mg PO DAILY ezetimibe 10 mg PO DAILY lidocaine 5% 1 patch topical DAILY nitrofurantoin macrocrystal (Macrodantin) 50 mg orally Use after sexual activity; must administer with a meal/food omeprazole 20 mg PO DAILY oxybutynin chloride ER 5 mg PO DAILY PRN Tirosint (levothyroxine) 112 mcg PO DAILY NS HPI Comments Details: Triny comes for follow-up after myocardial perfusion imaging. This was within normal limits. He has no new cardiac symptoms at current point in time except for intermittent episodes of headaches after various different events. She also had 1 episode of chest tightness post testing, most likely she thinks asthma related. Her LDL is improved significantly. He was trying to eat better and lose weight although she says she has some financial issues. [facility] Medical History Hypoparathyroidism Post-operative hypothyroidism Renal calculi Female bladder prolapse Mediastinal mass HLD (hyperlipidemia) Vitamin D deficiency Multinodular thyroid Corpus luteum cyst of right ovary Anxiety Asthma Depression GERD (gastroesophageal reflux disease) Surgical History History of thyroid surgery Hx laparoscopic cholecystectomy (~07/03/23) Family History Mother Diabetes HTN (hypertension) Early menopause Father Diabetes Maternal Aunt Thyroid disease Social History Household Members: Family Household Members Other:: father & minor child Housing: House Are you a primary child care group leader to a significant other at home: Yes Do you presently have visiting nurse or other home services: No Alcohol intake: current Alcohol intake frequency: does not drink Patient Tobacco Use Status: Current someday Tobacco user Tobacco use type: Cigarette Cigarettes Per Day: 4 Years Smoked: 12 Substance Use Type: Marijuana Current occupational status: employed 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 Sexual orientation: Straight/Heterosexual Gender identity: Female Female Reproductive History Menstrual Age of Menarche: 12 Review of Systems Const Denies weakness ENT Denies dizziness Card Denies chest pain, Denies chest pain with activity, Denies syncope, Denies rapid heart rate, Denies pedal edema, Denies edema, Denies leg edema, Denies lightheadedness, Denies palpitations, Denies dyspnea, Denies dyspnea on exertion and Denies orthopnea Resp Denies cough, Denies dyspnea and Denies dyspnea on exertion GI Denies hematochezia and Denies change in stool character Musc Denies abnormal gait, Denies muscle cramps, Denies muscle weakness, Denies numbness, Denies radiating pain into limb and Denies tingling Neuro Denies abnormal gait, Denies dizziness, Denies syncope, Denies numbness, Denies tingling and Denies weakness Endo Denies palpitations Physical Exam Vital Signs: Last Vital Signs Pulse 85 07/22/24 10:45 BP 122/60 07/22/24 10:45 BMI result Body Mass Index 31.0 No significant change Assessment & Plan Assessment & Plan (1) HLD (hyperlipidemia): Code(s): E78.5 - Hyperlipidemia, unspecified Category: Medical Plan: Hyperlipidemia symptoms of shortness of breath chest tightness within normal myocardial perfusion imaging. Unlikely this represents myocardial ischemia. She does have evidence of early atherosclerosis in her aortoiliac region with mild atherosclerotic calcific changes. Continue aggressive management. Currently on high-intensity statin and Zetia with significant improvement her LDL cholesterol. I have suggested her to now participate in more regular physical activity and weight loss program as well as improved diet. Follow-up lipid panel annually. Can use PCSK9 inhibitor therapy if she continues to have elevated LDL despite aggressive lifestyle modification. Follow up in the clinic if need be. Thank you for allowing me to partake in his care Medications: Changed From oxybutynin chloride ER 5 mg PO DAILY 90 tabs 3RF To oxybutynin chloride ER 5 mg PO DAILY PRN Coding Level of Care Code Est Pt Level 3 (42313) Diagnoses HLD (hyperlipidemia) E78.5
== END 2024-07-22 11:24 | disposition home or self-care (01) ==
PROVIDERS: PCP Internal Medicine; Referring Provider Internal Medicine; Visit Provider Internal Medicine Cardiovascular Disease
DX: E78.5 Hyperlipidemia, unspecified (principal)
CPT/HCPCS: 99213

== ENCOUNTER → 2024-07-22 10:44 | Outpatient (BNVA) | payer MEDICAID, SELFPAY | PROVIDERS: PCP Internal Medicine; Visit Provider Internal Medicine Cardiovascular Disease | DX: E78.5 Hyperlipidemia, unspecified (principal) | CPT/HCPCS: 99212 ==

== ENCOUNTER 2024-09-08 13:02 | Outpatient (AMB) | payer MEDICAID, SELFPAY ==
[2024-09-08 13:04] VITALS: BP 104/70; PULSE 97; BMI 34.1
--- NOTE | 2024-09-08 13:04 | A.OFFVIS_ITS ---
Vital Signs 09/08/24 13:04 Height 5 ft 4 in Weight 198 lb 10.184 oz BMI 34.1 BP 104/70 Blood Pressure Location Lt brachial Position Sitting Pulse 97 Pulse Source Pulse Oximeter Intake Visit Reasons: post-surgical hypothyroidism/hypoparathyroidism Intake Note: Patient present today for post-surgical hypothyroidism/hypoparathyroidism office visit. Wage Conciliator Required: No Accompanied by: Self / Same As Patient Allergies cortisone Allergy (Intermediate, Verified 09/08/24 13:08) from cream-Rx for rash & rash spread (childhood) Influenza Virus Vaccines Allergy (Intermediate, Verified 09/08/24 13:08) Hives latex Allergy (Intermediate, Verified 09/08/24 13:08) Rash doxycycline Adverse Reaction (Unknown, Verified 09/08/24 13:08) Vomiting Medication List - Last Reconciled 09/08/24 by Xiang De Jesus MD atorvastatin 80 mg PO BEDTIME 30 days calcitriol 0.25 mcg PO DAILY calcium citrate 200 mg PO DAILY ezetimibe 10 mg PO DAILY lidocaine 5% 1 patch topical DAILY nitrofurantoin macrocrystal (Macrodantin) 50 mg orally Use after sexual activity; must administer with a meal/food omeprazole 20 mg PO DAILY oxybutynin chloride ER 5 mg PO DAILY PRN Tirosint (levothyroxine) 112 mcg PO DAILY NS HPI Comments Details: 29 YO Female with a PMHx of HLD who is seen in F/U for a post-surgical hypothyroidism and hypoparathyroidism She reports a longstanding history of HLD with LDL well over 200. She has a strong family history of HLD in all family members, and her Mother suffered an [place] in her 40's. She is currently using Atorvastatin 20 mg PO daily, and has not repeated her lipid panel in 1 years time. She does have xanethlasma of her eyelids. She has a 6 year old daughter and is unsure if she has had a lipid panel. She does complain of palpitations and symptoms of reflux, but no chest pain currently. 2) Multinodular thyroid She underwent an US of the neck 10/31/2022 which revealed multiple large thyroid nodules. She does complain of compressive symptoms with pressure in the neck while lying flat and occasional dysphagia. She denies any vocal hoarseness. TFTs were WNL. She underwent FNA biopsy 01/17/2023 of her left mid pole 4.3 cm, isthmus 3.2 cm and right isthmus 1.6 cm thyroid nodules, all with benign cytology. She underwent a CT of the neck and chest which revealed a mediastinal component of the thyroid with mass effect on the trachea. She was referred to Dr. Chavez and has her initial consultation for a thyroidectomy 06/07/2023. Thyroid US: 10/31/2022 Right Thyroid Lobe: 5.5 x 2.1 x 1.6 cm, volume 10.0 mL. Parenchyma: The gland echotexture is heterogeneous. Thyroid vascularity is increased. Left Thyroid Lobe: 7.0 x 3.2 x 1.9 cm, volume 22 mL. Parenchyma: The gland echotexture is heterogeneous. Thyroid vascularity is increased. Isthmus: 0.5 cm in maximum AP dimension. Estimated total number of nodules greater than or equal to 1 cm: 5. Mash Filter Operator nodules are described as follows: 1. Location: Isthmus. ?? ? Size: 3.2 x 1.9 x 3.2 cm, volume 10.2 mL. ?? ? Nodule characteristics: ?? ? Composition: Solid (2). ?? ? Echogenicity: Isoechoic (1). ?? ? Shape: Not taller than wide (0). ?? ? Margins: Smooth (0). ?? ? Echogenic Foci: None (0). ?? ? ACR TI-RADS total points: 3. ?? ? ACR TI-RADS category: 3. 2. Location: Right inferior. ?? ? Size: 1.0 x 0.7 x 0.7 cm, volume 0.2 mL. ?? ? Nodule characteristics: ?? ? Composition: Solid/almost completely solid (2). ?? ? Echogenicity: Isoechoic (1). ?? ? Shape: Not taller than wide (0). ?? ? Margins: Lobulated (2). ?? ? Echogenic Foci: None (0). ?? ? ACR TI-RADS total points: 5. ?? ? ACR TI-RADS category: 4. 3. Location: Right medial inferior. ?? ? Size: 1.6 x 1.1 x 1.5 cm, volume 1.4 mL. ?? ? Nodule characteristics: ?? ? Composition: Solid (2). ?? ? Echogenicity: Isoechoic (1). ?? ? Shape: Not taller than wide (0). ?? ? Margins: Ill-defined (0). ?? ? Echogenic Foci: None (0). ?? ? ACR TI-RADS total points: 3 ?? ? ACR TI-RADS category: 3 4. Location: Left superior. ?? ? Size: 1.3 x 0.9 x 1.5 cm, volume 0.9 mL. ?? ? Nodule characteristics: ?? ? Composition: Solid (2). ?? ? Echogenicity: Isoechoic (1). ?? ? Shape: Not taller than wide (0). ?? ? Margins: Lobulated (2). ?? ? Echogenic Foci: None (0). ?? ? ACR TI-RADS total points: 5. ?? ? ACR TI-RADS category: 4. 5.? Location: Left inferior. ?? ? Size: 4.3 x 2.7 x 3.1 cm, volume 18.3 mL. ?? ? Nodule characteristics: ?? ? Composition: Solid (2). ?? ? Echogenicity: Isoechoic (1). ?? ? Shape: Not taller than wide (0). ?? ? Margins: Ill-defined (0). ?? ? Echogenic Foci: Macrocalcifications (1). ?? ? ACR TI-RADS total points: 4. ?? ? ACR TI-RADS category: 4. NODES: No lymphadenopathy is seen in the tissue surrounding the thyroid gland. ADDITIONAL FINDINGS: There is isoechoic to hypoechoic lesion inferior to right thyroid lobe with minimal vascularity measuring 1.0 x 0.5 x 0.6 cm. Labs: Laboratory Tests 01/21/23 11:30 TSH 0.64 Status post total thyroidectomy with benign pathology.Thyroidectomy 10/21. Currently on 112 mcg Tirosint as well as calcitriol 0.25 ug QD. C/O muscle cramping intermittent, fatigue interfering with ability to function [facility] Medical History Hypoparathyroidism Post-operative hypothyroidism Renal calculi Female bladder prolapse Mediastinal mass HLD (hyperlipidemia) Vitamin D deficiency Multinodular thyroid Corpus luteum cyst of right ovary Anxiety Asthma Depression GERD (gastroesophageal reflux disease) Surgical History History of thyroid surgery Hx laparoscopic cholecystectomy (~07/03/23) Family History Mother Diabetes HTN (hypertension) Early menopause Father Diabetes Maternal Aunt Thyroid disease Social History Household Members: Family Household Members Other:: father & minor child Housing: House Are you a primary hiv/aids care nurse to a significant other at home: Yes Do you presently have visiting nurse or other home services: No Alcohol intake: current Alcohol intake frequency: does not drink Patient Tobacco Use Status: Current someday Tobacco user Tobacco use type: Cigarette Cigarettes Per Day: 4 Years Smoked: 12 Substance Use Type: Marijuana Current occupational status: employed 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 There is a negative [place] sign Assessment & Plan Assessment & Plan (1) Post-operative hypothyroidism: Code(s): E89.0 - Postprocedural hypothyroidism Category: Medical Plan: 29 -year-old white female status post total thyroidectomy for multinodular goiter. She is currently on Tirosint 112 mcg. She appears to be clinically and biochemically euthyroid Plan is to continue current therapy. In terms of the thyroid, the patient can follow up with her primary care provider returned back to endocrinology as needed (2) Hypoparathyroidism: Code(s): E20.9 - Hypoparathyroidism, unspecified Category: Medical Plan: Currently on calcium and calcitriol 0.25 mcg q.d. with low normal calcium levels. PTH is detectable but low normal Continue current management. We will check phosphorus as well as 24 hour urine for calcium and creatinine as well as renal ultrasound Could consider use of Yorvipath when available in October 2024 Orders: Orders Creatinine, 24 Hr Group Today E20.9 - Hypoparathyroidism, unspecified Calcium, 24 Hr Ur Today E20.9 - Hypoparathyroidism, unspecified Phosphorus Today E20.9 - Hypoparathyroidism, unspecified US renal BI Today E20.9 - Hypoparathyroidism, unspecified Vitamin D 25-OH Total Today E20.9 - Hypoparathyroidism, unspecified Coding Level of Care Code Est Pt Level 3 (79626) Diagnoses Post-operative hypothyroidism E89.0 Hypoparathyroidism E20.9
== END 2024-09-08 13:35 | disposition home or self-care (01) ==
PROVIDERS: PCP Internal Medicine; Visit Provider Internal Medicine Endocrinology, Diabetes & Metabolism
DX: E89.0 Postprocedural hypothyroidism (principal); E20.9 Hypoparathyroidism, unspecified
CPT/HCPCS: 99213

== ENCOUNTER → 2024-09-08 13:02 | Outpatient (BNVA) | payer MEDICAID, SELFPAY | PROVIDERS: PCP Internal Medicine; Visit Provider Internal Medicine Endocrinology, Diabetes & Metabolism | DX: E89.0 Postprocedural hypothyroidism (principal); E20.9 Hypoparathyroidism, unspecified | CPT/HCPCS: 99212 ==

== ENCOUNTER 2024-10-06 09:18 | Outpatient (AMB) | payer MEDICAID, SELFPAY ==
--- NOTE | 2024-10-06 09:21 | MHC.OFFVIS ---
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 Doing well with no concerns. Regular monthly menses. Currently is sexually active, open to a future . She admits to BV symptoms- vaginal sl. itching and irritation/burning, took on Macrobid. STI screening offered; she accepts. She tries to eat healthy and stays active with exercise-at times. Admits to family history of breast, ovarian or colon cancer. Last pap smear 2021, negative. [facility] Medical History (Updated 10/06/24 @ 10:08 by Birgit Head CNM) FH: breast cancer in first degree relative Hypoparathyroidism Post-operative hypothyroidism Renal calculi Female bladder prolapse Mediastinal mass HLD (hyperlipidemia) Vitamin D deficiency Multinodular thyroid Corpus luteum cyst of right ovary Anxiety Asthma Depression GERD (gastroesophageal reflux disease) Surgical History History of thyroid surgery Hx laparoscopic cholecystectomy (~07/03/23) Family History Mother Diabetes HTN (hypertension) Early menopause Father Diabetes Maternal Aunt Thyroid disease Paternal Grandmother Ovarian cancer Other Colon cancer History of breast cancer Social History Household Members: Family Household Members Other:: father & minor child Housing: House Are you a primary animal daycare provider to a significant other at home: Yes Do you presently have visiting nurse or other home services: No Alcohol intake: current Alcohol intake frequency: does not drink Patient Tobacco Use Status: Current someday Tobacco user Tobacco use type: Cigarette Cigarettes Per Day: 4 Years Smoked: 12 Substance Use Type: Marijuana Current occupational status: employed 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 Sexual orientation: Straight/Heterosexual Gender identity: Female Female Reproductive History Menstrual Age of Menarche: 12 Duration of menses: 3-5 days Date of last menstrual period: 09/11/24 control method: none Total pregnancies: 2 Full term: 1 Number of Living Children: 1 Ab spontaneous: 1 Date of last pap smear: 08/21/22 (neg) Review of Systems Const All systems reviewed & are unremarkable except as noted in HPI and below Reports as per HPI Eyes Reports no additional complaints ENT Reports no additional complaints Card Reports no additional complaints Resp Reports no additional complaints GI Reports as per HPI and Reports no additional complaints Reports as per HPI Musc Reports no additional complaints Skin/Breast Reports as per HPI Neuro Reports no additional complaints Psych Reports no additional complaints Endo Reports no additional complaints Иван/Lymph Reports no additional complaints Aller/Immun Reports no additional complaints Physical Exam Vital Signs: Last Vital Signs BP 114/72 10/06/24 09:22 BMI result Body Mass Index 35.2 Const General: cooperative, healthy appearing, no acute distress, well developed and alert Orientation/consciousness: patient oriented x3 HEENT Head: Yes normal to inspection Mouth: other (scar) Eyes General: appearance normal, both eyes and all related structures Neck Neck: Yes normal visual inspection Thyroid: Thyroid normal Chest Chest palpation & inspection: normal inspection of the chest and other (no puckering, dimpling, peau de orange, retraction, discharge, masses) Breast/axilla inspection: normal inspection of the breasts Breast/axilla palpation: normal palpation of the breasts Resp Effort & Inspection: normal respiratory effort GI Inspection: Yes normal to inspection Palpation (GI): Soft to palpation Rectal Exam - Female: deferred General: Yes bladder normal to palpation External Female Exam: normal external appearance and normal appearance of the urethra Speculum Exam - Vagina: normal appearance of the vagina, normal palpation and normal vaginal discharge Speculum Exam - Cervix: normal appearance of the cervix and normal palpation Bimanual exam- vagina & uterus: normal bimanual exam, normal palpation, uterine size normal, bladder normal to palpation, normal palpation and non-tender Bimanual Exam- Adnexa, other: no masses Skin General skin exam: no rashes or lesions noted Rashes: no rashes Neuro General: patient oriented x3 Cognition (Neuro): normal cognition Extrem General: Yes normal to inspection Psych Attitude: cooperative Thought process: Normal thought process present Results AMB Urinalysis, Automated UA Leukoctes 0 Jose/uL Last Edit by Gaviota Roxanna Beck Kinza on 10/06/24 10:09 UA Nitrite Negative Last Edit by Gaviota Roxanna Martinakinza [facility] on 10/06/24 10:09 UA Urobilinogen 0 mg/dL Last Edit by Gaviotaandrew Beck [facility] on 10/06/24 10:09 UA Protein 0 mg/dL Last Edit by Gaviota Roxanna Beck [facility] on 10/06/24 10:09 UA pH 6.0 Last Edit by Gaviotaandrew Beck [facility] on 10/06/24 10:09 UA Blood 0 Mario/uL Last Edit by Gaviota Roxanna Beck [facility] on 10/06/24 10:09 UA Specific [place] 1.020 Last Edit by Gaviotaandrew Beck [facility] on 10/06/24 10:09 UA Ketone Negative Last Edit by Gaviotaandrew Beck [facility] on 10/06/24 10:09 UA Bilirubin 0 mg/dL Last Edit by Gaviota Roxanna Beck [facility] on 10/06/24 10:09 UA Glucose 0 mg/dL Last Edit by Gaviota Beck [facility] on 10/06/24 10:09 Assessment & Plan Assessment & Plan (1) Encounter for well woman exam with routine gynecological exam: Code(s): Z01.419 - Encounter for gynecological examination (general) (routine) without abnormal findings (2) FH: breast cancer in first degree relative: Code(s): Z80.3 - Family history of malignant neoplasm of breast Category: Medical Plan Discussed: Current recommendations for pap smears per ASCCP guidelines. Breast awareness and periodic breast exams. Discuss BRCA genetic testing would like to have a referral for assessment, placed today to Dr. Kincaid. Maintain a healthy lifestyle including a well balanced diet and routine exercise. Urinalysis in office was negative today. Starting vitamins for the benefit of folic acid and prevention of neural tube defects. Discussed [facility] is option for care due to medical. If late for menses to report to the office for care. Patient verbalizes understanding and agrees to the plan of care. She was given opportunity to ask questions and all questions were answered to the best of my ability. RTO in one year for annual patient safety manager examination. This note is constructed using voice recognition software. While every effort has been made to ensure accuracy, credit negotiator errors may have been included. Benefits Orders: Orders Hepatitis C Viral Load Today Z20.2 - Contact with and (suspected) exposure to infections with a predominantly sexual mode of transmission Hepatitis C Antibody Reflex Today Z20.2 - Contact with and (suspected) exposure to infections with a predominantly sexual mode of transmission Syphilis Screen Today Z20.2 - Contact with and (suspected) exposure to infections with a predominantly sexual mode of transmission Bacterial Vaginosis Panel Today N89.8 - Other specified noninflammatory disorders of vagina HIV Ab/Ag Today Z20.2 - Contact with and (suspected) exposure to infections with a predominantly sexual mode of transmission CT NG by PCR Today N89.8 - Other specified noninflammatory disorders of vagina AMB Urinalysis Automated Today R35.0 - Frequency of micturition Referrals Breast Surgery Referral Z80.3 - Family history of malignant neoplasm of breast Medications: New PNV,calcium 84-owxx-hyfju acid 27 mg iron- 1 mg ( Vitamins Plus Low Iron) 1 tab PO DAILY 90 tabs 4RF Coding Level of Care Code Est Pt Prev Care 18-39y(97498) Diagnoses Encounter for well woman exam with routine gynecological exam Z01.419 FH: breast cancer in first degree relative Z80.3
[2024-10-06 09:22] VITALS: BP 114/72; BMI 35.2
--- OUTSIDE RECORDS SUMMARY | 2024-10-06 09:23 | XMS_ITS ---
Author Organization [facility] Address [address] [place] [address] Care Team Providers Care Manager Protein Name Role Phone Efraín Carter MD Primary Care Provider Xiang Ventura Unavailable [phone] ALLERGIES Allergen (clinical drug ingredient) Drug/Non Drug Allergy documented on EMR Reaction Allergy Type Onset Date Status Influenza Vac High-Dose Quad Unknown Drug Allergy Active Latex Latex Unknown Allergy Active cortisone Cortisone Unknown Drug Allergy Active REASON FOR VISIT Patient presents today for gerd, hiatal hernia MEDICATIONS Medication SIG (Take, Route, Frequency, Duration) Notes Start Date End Date Status Omeprazole 20 MG 1 capsule 30 minutes before morning meal Orally Once a day Just prn Active Hyoscyamine Sulfate 0.125 MG 1-2 tabs Orally qid prn Active Atorvastatin Calcium 20 MG TAKE 1 TABLET BY MOUTH DAILY Oral for 90 Active IMMUNIZATIONS Vaccine Route Administration Date Status Comme nts Influenza Unknown 03/04/2024 Refused SOCIAL HISTORY Tobacco Use: Social History Observation Description Date Details (start date - stop date) Former Smoker NA - NA Sex Assigned At : Social History Observation Description Sex Assigned At Unknown Tobacco Use/Smoking Question Answer Notes Patient is a former smoker Alcohol Screen Question Answer Notes Did you have a drink containing alcohol in the p ast year? No Points 0 Interpretation Negative PROBLEMS Problem Type ICD Code Onset Dates Problem Status W/U Status Risk SNOMED Code Notes Problem Fatty liver (K76.0) Active confirmed Fatty liver (414876056) VITAL SIGNS BMI 33.57 kg/m2 03/04/2024 Blood pressure systolic 000 mm Hg 03/04/20 24 Blood pressure diastolic 00 mm Hg 024 Height 64.25 in 03/04/2024 Temperature 97.5 degrees Fahrenheit 03/04/20 24 Weight 197 lb 2 oz lbs 03/04/2024 Encounters Encounter Location Date Provider Diagnosis [facility] [address] [place] [address] 03/04/2024 Xiang Nelson Irritable bowel synd michael with both constipation and diarrhea K58.2 ; Gastroesophageal reflux disease without esophagitis K21.9 and Fatty liver K76.0 ASSESSMENTS Encounter Date Diagnosis Assessment Notes Treatment Notes Treatment Clinical Notes 03/04/2024 Irritable bowel syndrome with both constipation and diarrhea (ICD-10 - K58.2) Continue the Hyoscyamine as needed for the abdominal cramps and bloating 03/04/2024 Gastroesophageal reflux disease without esophagitis (ICD-10 - K21.9) Continue the omeprazole once or twice a day for the reflux 03/04/2024 Fatty liver (ICD-10 - K76.0) Watch diet and weight, and avoid alcohol, to help with the fatty liver PLAN OF TREATMENT Treatment Notes Assessment Notes Irritable bowel syndrome wit h both constipation and diarrhea Continue the Hyoscyamine as needed for the abdominal cramps and bloating Gastroesophageal reflux dise ase without esophagitis Continue the omeprazole once or twice a day for the reflux Fatty liver Watch diet and weigh t, and avoid alcohol, to help with the fatty liver Next Appt Details Follow Up: 1 Year, Reason: Provider Name:Xiang Nelson , 03/03/2025 04:20:00 PM, [address], [address], [place], [address], Progress Notes * Examination Category Sub-Category Detail Notes General Examination GENERAL APPEARANCE: pleasant , well nourished, well developed, in no acute distress HEAD: EYES: sclera non-icteric EARS: NOSE: THROAT: NECK/THYROID: no cervical lymphade nopathy, neck supple HEART: S1, S2 normal CHEST: LUNGS: clear to auscultatio n bilaterally ABDOMEN: normal bowel sounds, no guarding or rigidity, no guarding or rigidity, no masses palpable, soft, nontender, nondistended NEUROLOGIC: alert and oriented SKIN: nonjaundiced, no spi hailey angiomata EXTREMITIES: no edema PERIPHERAL PULSES: BACK: BREASTS: MUSCULOSKELETAL: MALE GENITOURINARY: LYMPH NODES: RECTAL EXAM: FEMALE GENITOURINARY: ORAL CAVITY: mucosa moist
--- OUTSIDE RECORDS SUMMARY | 2024-10-06 09:24 | XMS_ITS ---
Author Organization [facility] Address [address] [place] [address] Care Team Providers Care Retread Mold Operator Name Role Phone Efraín Carter MD Primary Care Provider Xiang Ventura Unavailable [phone] REASON FOR VISIT insurance Encounters Encounter Location Date Provider Diagnosis [facility] [address] [place] [address] 02/06/2024 Xiang Nelson PLAN OF TREATMENT Next Appt Details Provider Name:Xiang Nelson , 03/03/2025 04:20:00 PM, [address], [address], [place], [address],
--- OUTSIDE RECORDS SUMMARY | 2024-10-06 09:24 | XMS_ITS | Patient Health Record ---
Author Organization [facility] Address [address] [place] [address] Care Team Providers Care General Foundry Worker Name Role Phone Efraín Carter MD Primary Care Provider Xiang Ventura Unavailable [phone] ALLERGIES Allergen (clinical drug ingredient) Drug/Non Drug Allergy documented on EMR Reaction Allergy Type Onset Date Status Influenza Vac High-Dose Quad Unknown Drug Allergy Active Latex Latex Unknown Allergy Active cortisone Cortisone Unknown Drug Allergy Active RESULTS Component Value Reference Range Notes HCG Quantitative Reviewed date:10/07/2023 05:47:21 PM Interpretation: Performing Lab:[address] [address] Notes/Report: HCG Quantitative < 2 Weeks post LMP Approximate hCG (Last Menstrual Period) Range (mIU/ml) 3 - 4 weeks 9 - 130 4 - 5 weeks 75 - 2,600 5 - 6 weeks 850 - 20,800 6 - 7 weeks 4000 - 100,200 7 - 12 weeks 11,500 - 289,000 12 - 16 weeks 18,300 - 137,000 16 - 29 weeks (2nd trimester) 1,400 - 53,000 29 - 41 weeks (3rd trimester) 940 - 60,000 The Kirk B-hCG assay is used for the early detection of ; it cannot be used to diagnose any condition unrelated to . If a B-hCG level is not supported by the clinical evidence, results should be confirmed by an alternative method (qualitative urine hCG, for example). Pathology Reviewed date:10/20/2023 04:28:27 PM Interpretation: Performing Lab:[address] [address] Notes/Report: REASON FOR REFERRAL Referring Provider First Name Efraín Referring Provider Last Name Emma Referring Provider Speciality Internal M edicine Referred Organization [facility] Referred Provider Xiang Nelson Referred Address [address] [place] [address],[facility] [address],[place],[address],[place] Referred Provider Specialty Gastroentero logy General Notes Zacarias Lopezn 024 10:09:18 AM EDT > requested a [facility] referral from Dr. Carter's [phone] Nelson on 03-04-2024 Referral Priority Routine MEDICATIONS Medication SIG (Take, Route, Frequency, Duration) Notes Start Date End Date Status Atorvastatin Calcium 20 MG TAKE 1 TABLET BY MOUTH DAILY Oral for 90 Active Omeprazole 20 MG 1 capsule 30 minutes before morning meal Orally Once a day Just prn Active Hyoscyamine Sulfate 0.125 MG 1-2 tabs Orally qid prn Active IMMUNIZATIONS Vaccine Route Administration Date Status [...] W/U Status Risk SNOMED Code Notes Problem Irritable bowel syndrome with both constipation and diarrhea (K58.2) Active confirmed 39714106 Problem Gastroesophageal reflux disease, unspecified whether esophagitis present (K21.9) Active confirmed 431279927 Problem Calculus of gallbladder without cholecystitis without obstruction (K80.20) Active confirmed 40791469 Problem Abdominal pain, right upper quadrant (R10.11) Active confirmed 986974664 Problem Gastroesophageal reflux disease without esophagitis (K21.9) Active confirmed Gastroesophagea l reflux disease without esophagitis (682716512) Problem Fatty liver (K76.0) Active confirmed Fa tty liver (728294105) VITAL SIGNS Temperature 97.5 degrees Fahrenheit 03/04/2024 Blood pressure diastolic 00 mm Hg 03/04/2024 Height 64.25 in 03/04/2024 Blood pressure systolic 000 mm Hg 03/04/2024 Weight 197 lb 2 oz lbs 03/04/2024 BMI 33.57 kg/m2 03/04/2024 Encounters Encounter Location Date Provider Diagnosis [facility] [address] [place], [place] [id number] 10/07/2023 Xiang Nelson Gastroesophageal ref lux disease without esophagitis K21.9 ; Hiatal hernia K44.9 and Abdominal pain R10.9 [facility] [address] [place] [address] 03/04/2024 Xiang Nelson Irritable bowel synd michael with both constipation and diarrhea K58.2 ; Gastroesophageal reflux disease without esophagitis K21.9 and Fatty liver K76.0 [facility] [address] [place] [address] 10/15/2023 Xiang Nelson [facility] [address] [facility] [address] [place] [address] 02/06/2024 Xiang Nelson ASSESSMENTS Encounter Date Diagnosis Assessment Notes Treatment Notes Treatment Clinical Notes 10/07/2023 Gastroesophageal reflux disease without esophagitis (ICD-10 - K21.9) 10/07/2023 Hiatal hernia (ICD-1 0 - K44.9) 03/04/2024 Gastroesophageal reflux disease without esophagitis (ICD-10 - K21.9) Continue the omeprazole once or twice a day for the reflux 03/04/2024 Irritable bowel syndrome with both constipation and diarrhea (ICD-10 - K58.2) Continue the Hyoscyamine as needed for the abdominal cramps and bloating 10/07/2023 Abdominal pain (ICD- 10 - R10.9) 03/04/2024 Fatty liver (ICD-10 - K76.0) Watch diet and weight, and avoid alcohol, to help with the fatty liver PLAN OF TREATMENT Pending Test Test Name Order Date LIVER PROFILE 06/11/2023 CRP 06/11/2023 CBC w DIFF 06/11/2023 SED RATE (ESR) 06/11/2023 Celiac Panel 10 06/11/2023 US abdomen complete 06/11/2023 Future Test Test Name Order Date UPPER GI ENDOSCOPY 06/11/2023 Next Appt Details Provider Name:Xiang Mcknight Nelson , 03/03/2025 04:20:00 PM, [address] [facility], [address], [place], [address], Insurance Providers Payer Name Payer Address Payer Phone Subscriber Number Group Number Insured Name Patient Relationship to Insured Coverage Start Date Coverage End Date [facility] [address] [place] [id number] DAMIEN CASILLAS Self - patient is the insured MEDICAL (GENERAL) HISTORY Medical History History ICD Code Anxiety IBS Asthma Kidney stones Enlarged thyroid with nodule s--will be having at least a partial thyroidectomy at [facility] in approx 10/2023 Hyperlipidemia UTI's Having an ETT with Dr. Katherine Orta [place],DM,CVA,renal disease GERD--Upper endoscopy in Sep revealed a small hiatal hernia but was otherwise unremarkable. Duodenal biopsies negative for celiac disease, gastric biopsies were negative for H. pylori, and biopsies from the gastroesophageal junction were negative for Luna's esophagus Surgical History Surgery Date(Month/Year) Thyroidectomy-2023 at [facility]- 2022-Dr. Kincaid
--- OUTSIDE RECORDS SUMMARY | 2024-10-06 09:24 | XMS_ITS ---
Author Organization [facility] Address [address] [place] [address] Care Team Providers Care Hyster Driver Name Role Phone Efraín Carter MD Primary Care Provider Xiang Ventura [phone] REASON FOR VISIT please schedule f/u next year Encounters Encounter Location Date Provider Diagnosis [facility] [address] [place] [address] 10/15/2023 Xiang Nelson PLAN OF TREATMENT Next Appt Details Provider Name:Xiang Nelson , 03/03/2025 04:20:00 PM, [address], [address], [place], [address],
== END 2024-10-06 10:10 | disposition home or self-care (01) ==
PROVIDERS: PCP Internal Medicine; Visit Provider Advanced Practice Midwife
DX: Z01.419 Encounter for gynecological examination (general) (routine) without abnormal findings (principal); Z80.3 Family history of malignant neoplasm of breast; R35.0 Frequency of micturition
CPT/HCPCS: 99395; 99459

== ENCOUNTER 2024-10-06 09:53 | Outpatient (REF) | payer OTHER, SELFPAY ==
--- OUTSIDE RECORDS SUMMARY | 2024-10-06 09:58 | XMS_ITS | Data Portability ---
Author Organization [facility] [address] Address [address] [place] [address] Assessment No assessment recorded. Plan of Treatment Reminders Order Date Submit Date Provider Last Modified By Organization Details Last Modified Time Details Appointments None recorded. Lab None recorded. Referral None recorded. Procedures None recorded. Surgeries None recorded. Imaging None recorded. Medication Orders Bactrim DS 800 mg-160 mg tablet [id number], [address] [place], [address], 17:18:44 Patient TargetsNo targets recorded. Patient Instructions Encounter Date Encounter Id Patient Instructions Last Modified By Organization Details Last Modified Time 06/15/2024 [id number] skin abscess: care instructions [email or web address] Not available 06/15/2024 17:19:12 You can take ove r the counter tylenol or ibuprofen per package instructions for the pain. See printed instructions. Follow-up with your doctor if no improvement in 1 week. Seek Emergency Medical evaluation for any worsening symptoms. [email or web address] Not available 06/15/2024 17:18:59 Consider finding a Functional Medicine Doctor that will take your insurance. You can look at these directories: [facility] [place] [facility] [place] [email or web address] Not available 06/15/2024 17:27:30 Reason for Referral None Reported. Problems Name Problem SNOMED Code Status Onset Date Resolution Date Notes Provider Name and Address Organization Details Recorded Time Hyperlipidemia 44385297 Active IVANIA Griffith [facility] 15:32:07 Calcium deficiency 513889655 Active RamaIVANIA Green [facility] 15:32:22 Hypothyroidism 99846485 Active Rama zhang, [place] - [facility] 4 15:32:39 Overactive urinary bladder 134373851 Active Rama zhang, PA - [facility] 4 15:33:10 Problem Notes None recorded. Procedures Surgical History Date Name Laterality Status Provider Name and Address Organization Details Recorded Time thyroidectomy completed Rama Curiel PA - [facility] 06/15/2024 15:35:12 cholecystectomy completed Rama Curiel PA - [facility] 06/15/2024 15:35:41 endoscopy completed Rama Curiel PA - [facility] 06/15/2024 15:35:57 Imaging Results None recorded. Procedure Notes None recorded. Medical Equipment None Reported. Allergies No known drug allergies Medications Name Sig Start Date Stop Date Status Note LastModified by Organization Details LastModified Time atorvastatin 80 mg tablet Take 1 tablet every day by oral route. active Not Available Not Available No t Available lidocaine 5 % topical patch APPLY 1 PATCH BY TOPICAL ROUTE ONCE DAILY (MAY WEAR UP TO 12HOURS.) active Not Available Not Available No t Available oxybutynin chloride 5 mg tablet Take 1 tablet every day by oral route. active Not Available Not Available No t Available calcitriol 0.25 mcg capsule Take 1 capsule every day by oral route. active Not Available Not Available No t Available levothyroxin e 112 mcg tablet Take 1 tablet every day by oral route. active Not Available Not Available No t Available Bactrim DS 800 mg-160 mg tablet Take 1 tablet every 12 hours by oral route as directed for 10 days, for abscess. 2023 active Not Available Not Available Not Avai lable calcium 200 mg (as calcium citrate 950 mg) tablet Take 2 tablets twice a day by oral route. active Not Available Not Available No t Available ezetimibe 10 mg tablet Take 1 tablet every day by oral route. active Not Available Not Available No t Available nitrofuranto in 50 mg tablet Take 1 tablet by oral route as needed. active only when sexual active Not Available Not Available Not Available Vitals Date Recorded Body height Body mass index (BMI) Body weight Oxygen saturation Oxygen saturation in Arterial blood by Pulse oximetry Heart rate Respiratory rate Body temperature Systolic blood pressure Diastolic blood pressure Provider Name and Address Organization Details Last Updated DateTime 162.56 cm 32.4 kg/m2 48688.9 6 g 99 % 99 % 82 /min 16 /min 98.5 [degF] 156 mm[Hg] 83 mm[Hg] Rama Curiel PA - [facility] 15:23:00 Social History Question Answer Notes LastModified by Organizat ion Details LastModified Time Tobacco Smoking Status Current Every Day Smoker Rama Curiel vicente PA - [facility] 06/15/2024 15:34:22 Are You Currently Employed? No Information not available 06/15/2024 Which Illicit Or Recreational Drugs Have You Used? Cannabis [email or web address] Information not available 06/15/2024 Have You Had A Flu Shot This Season? No [email or web address] Information not available 06/15/2024 If No, Would You Like A Flu Shot Today? No Information not available 06/15/2024 What Is Your Relationship Status? Single [email or web address] Information not available 06/15/2024 How Much Tobacco Do You Smoke? 1 PPW [email or web address] Information not available 06/15/2024 Do You Use Any Illicit Or Recreational Drugs? Yes [email or web address] Information not available 06/15/2024 Have You Recently Traveled Abroad? No [email or web address] Information not available 06/15/2024 Do You Or Have You Ever Used Any Other Forms Of Tobacco Or Nicotine? No [email or web address] Information not available 06/15/2024 Sex: Unknown Functional Status None recorded. Mental Status None recorded. Family History Relationship Description Onset Age of this Age Resolved Age Notes LastModified by Organization Details LastModified Time Father No current problems or disability Not available 05/22 15:33:16 Mother No current problems or disability [email or web address] Not available 05/22 15:33:16 Medical History No medical history recorded. Gynecological History Statement/Question Response Date of LMP 06/01/2024 Is there any chance of ? No LMP Approximate Obstetrics History GPAL:G 0 P 0 0 0 0 Past Encounters Encounter ID Performer Location Encounter Start Date Encounter Closed Date Diagnosis/Indication Diagnosis SNOMED-CT Code Diagnosis ICD10 Code [id number] [address] [place] [address] 01/26/2020 12:07:57 01/26/2020 12:35:42 [id number] [address] [place] [address] 02/28/2016 13:48:40 02/28/2016 14:49:52 [id number] [address] [facility] [address] [place] [address] 07/23/2018 12:08:26 07/23/2018 13:13:02 [id number] [address] [place] [address] 07/21/2019 16:19:57 07/21/2019 17:54:56 [id number] JANUARY GOETZ [facility] [address] [facility] [address] [place] [address] 06/15/2024 14:49:31 06/15/2024 17:28:23 Abscess of skin and/or subcutaneous tissue 55075888 L02.91 Health Concerns Section Related Observation LastModified by Organization Detai ls LastModified Time None Recorded Concern Status LastModified by Organization Details LastModified Time None Recorded Advance Directives Directive None Recorded Payers Encounter Date Sequence Insurance Name Policy Number Policy Nielsen Covered Member ID Nieslen Member ID Guarantor Name 06/15/2024 1 [place]: [facility] [id number] [facility] Notes Date Note Type Note Provider Name and Address Organization Details Recorded Time 06/15/2024 text/html 29 yo female c/o 2 day hx of left chest wall abscess that is painful and warm to touch. 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 JANUARY GOETZ MD [address] [place], [address], [place] - [facility] 06/16/2024 12:44:14 OBGyn Episode No OBEpisode recorded.
== END 2024-10-06 09:54 | disposition home or self-care (01) ==
LOC: HO.LAB 09:53
PROVIDERS: Visit Provider Advanced Practice Midwife
DX: Z13.89 Encounter for screening for other disorder (principal)

== ENCOUNTER 2024-10-06 09:53 | Outpatient (REF) | payer OTHER, SELFPAY ==
[2024-10-06 18:14] LABS: Bacterial Vaginosis PCR NEGATIVE (Negative); Candida Group PCR NOT DETECTED (Not Detect); Candida glab krusei PCR NOT DETECTED (Not Detect); Trichomonas vaginalis PCR NOT DETECTED (Not Detect)
[2024-10-07 12:02] LABS: CT PCR NOT DETECTED (Not Detect.); NG PCR NOT DETECTED (Not Detect.)
== END 2024-10-06 09:54 | disposition home or self-care (01) ==
LOC: HO.LNP 09:53
PROVIDERS: Visit Provider Advanced Practice Midwife
DX: N89.8 Other specified noninflammatory disorders of vagina (principal)
CPT/HCPCS: 0352U; 87491; 87591

== ENCOUNTER 2024-10-06 15:08 | Outpatient (REF) | payer OTHER, SELFPAY ==
[2024-10-06 17:48] LABS: Phosphorus 3.5 mg/dL (2.7-4.5)
[2024-10-06 18:04] LABS: Vitamin D 25-OH Total 44.3 ng/mL (>30)
[2024-10-07 07:47] LABS: Syphilis Screen Nonreactive (Nonreactive)
[2024-10-07 08:30] LABS: HIV AB/AG Nonreactive (Nonreactive); HIV Num 1 0.08 S/CO (0.00-0.99); ~HepC Num1 0.15 S/CO (0.00-0.79); ~Hepatitis C Antibody Nonreactive (Nonreactive)
[2024-10-08 18:59] LABS: HCV Log PCR <1.18 NOT DETECTED Log IU/mL (NOT DETECTED); HepC Viral Load <15 NOT DETECTED IU/mL (NOT DETECTED)
== END 2024-10-06 15:09 | disposition home or self-care (01) ==
LOC: HO.LAB 15:08
PROVIDERS: PCP Internal Medicine; Referring Provider Internal Medicine Endocrinology, Diabetes & Metabolism; Visit Provider Advanced Practice Midwife
DX: R35.0 Frequency of micturition (principal); E20.9 Hypoparathyroidism, unspecified; Z20.2 Contact with and (suspected) exposure to infections with a predominantly sexual mode of transmission
CPT/HCPCS: 36415; 82306; 84100; 86780; 86803; 87389; 87522

== ENCOUNTER 2024-10-06 15:31 | Outpatient (REF) | payer OTHER, SELFPAY | END 2024-10-06 15:32 | disposition home or self-care (01) | LOC: HO.US 15:31 | PROVIDERS: PCP Internal Medicine; Visit Provider Internal Medicine Endocrinology, Diabetes & Metabolism | DX: E20.9 Hypoparathyroidism, unspecified (principal) | CPT/HCPCS: 76775 ==

== ENCOUNTER 2025-06-28 09:35 | Outpatient (AMB) | payer OTHER, SELFPAY ==
--- NOTE | 2025-06-28 09:38 | A.OFFVIS_ITS ---
Vital Signs 06/28/25 09:42 Height 5 ft 4 in Weight 235 lb 3.732 oz BMI 40.4 BP 98/78 Blood Pressure Location Rt brachial Position Sitting Pulse 70 Pulse Source Pulse Oximeter Pulse Oximetry (%) 96 Intake Visit Reasons: Follow up/ medication Intake Note: Patient present today for post-surgical hypothyroidism/hypoparathyroidism office visit. 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 Patient has been off the Tirosint 112 mcg for approx 1 month. Molding Cutter Required: No Accompanied by: Self / Same As Patient Allergies cortisone Allergy (Intermediate, Verified 06/28/25 09:44) from cream-Rx for rash & rash spread (childhood) Influenza Virus Vaccines Allergy (Intermediate, Verified 06/28/25 09:44) Hives latex Allergy (Intermediate, Verified 06/28/25 09:44) Rash doxycycline Adverse Reaction (Unknown, Verified 06/28/25 09:44) Vomiting Medication List - Last Reconciled 06/28/25 by Xiang De Jesus MD atorvastatin 80 mg PO BEDTIME 30 days calcitriol 0.25 mcg PO DAILY calcium citrate 200 mg PO DAILY calcium citrate-vitamin D3 315 mg-6.25 mcg (250 unit) (Citracal + Vitamin D Maximum) 2 tabs PO BID 30 days ezetimibe 10 mg PO DAILY lidocaine 5% 1 patch topical DAILY nitrofurantoin macrocrystal 50 mg PO Q24H omeprazole 20 mg PO DAILY oxybutynin chloride ER 5 mg PO DAILY PRN PNV,calcium [id number] acid 27 mg iron- 1 mg ( Vitamins Plus Low Iron) 1 tab PO DAILY Tirosint (levothyroxine) 112 mcg PO DAILY NS HPI Comments Details: 30 YO Female with a PMHx of HLD who is seen in F/U for a post-surgical hypothyroidism and hypoparathyroidism She reports a longstanding history of HLD with LDL well over 200. She has a strong family history of HLD in all family members, and her Mother suffered an RI in her 40's. She is currently using Atorvastatin 20 mg PO daily, and has not repeated her lipid panel in 1 years time. She does have xanethlasma of her eyelids. She has a 6 year old daughter and is unsure if she has had a lipid panel. She does complain of palpitations and symptoms of reflux, but no chest pain currently. 2) Multinodular thyroid She underwent an US of the neck 10/31/2022 which revealed multiple large thyroid nodules. She does complain of compressive symptoms with pressure in the neck while lying flat and occasional dysphagia. She denies any vocal hoarseness. TFTs were WNL. She underwent FNA biopsy 01/17/2023 of her left mid pole 4.3 cm, isthmus 3.2 cm and right isthmus 1.6 cm thyroid nodules, all with benign cytology. She underwent a CT of the neck and chest which revealed a mediastinal component of the thyroid with mass effect on the trachea. She was referred to Dr. Chavez and has her initial consultation for a thyroidectomy 06/07/2023. Thyroid US: 10/31/2022 Right Thyroid Lobe: 5.5 x 2.1 x 1.6 cm, volume 10.0 mL. Parenchyma: The gland echotexture is heterogeneous. Thyroid vascularity is increased. Left Thyroid Lobe: 7.0 x 3.2 x 1.9 cm, volume 22 mL. Parenchyma: The gland echotexture is heterogeneous. Thyroid vascularity is increased. Isthmus: 0.5 cm in maximum AP dimension. Estimated total number of nodules greater than or equal to 1 cm: 5. Typesetter Apprentice nodules are described as follows: 1. Location: Isthmus. ?? ? Size: 3.2 x 1.9 x 3.2 cm, volume 10.2 mL. ?? ? Nodule characteristics: ?? ? Composition: Solid (2). ?? ? Echogenicity: Isoechoic (1). ?? ? Shape: Not taller than wide (0). ?? ? Margins: Smooth (0). ?? ? Echogenic Foci: None (0). ?? ? ACR TI-RADS total points: 3. ?? ? ACR TI-RADS category: 3. 2. Location: Right inferior. ?? ? Size: 1.0 x 0.7 x 0.7 cm, volume 0.2 mL. ?? ? Nodule characteristics: ?? ? Composition: Solid/almost completely solid (2). ?? ? Echogenicity: Isoechoic (1). ?? ? Shape: Not taller than wide (0). ?? ? Margins: Lobulated (2). ?? ? Echogenic Foci: None (0). ?? ? ACR TI-RADS total points: 5. ?? ? ACR TI-RADS category: 4. 3. Location: Right medial inferior. ?? ? Size: 1.6 x 1.1 x 1.5 cm, volume 1.4 mL. ?? ? Nodule characteristics: ?? ? Composition: Solid (2). ?? ? Echogenicity: Isoechoic (1). ?? ? Shape: Not taller than wide (0). ?? ? Margins: Ill-defined (0). ?? ? Echogenic Foci: None (0). ?? ? ACR TI-RADS total points: 3 ?? ? ACR TI-RADS category: 3 4. Location: Left superior. ?? ? Size: 1.3 x 0.9 x 1.5 cm, volume 0.9 mL. ?? ? Nodule characteristics: ?? ? Composition: Solid (2). ?? ? Echogenicity: Isoechoic (1). ?? ? Shape: Not taller than wide (0). ?? ? Margins: Lobulated (2). ?? ? Echogenic Foci: None (0). ?? ? ACR TI-RADS total points: 5. ?? ? ACR TI-RADS category: 4. 5.? Location: Left inferior. ?? ? Size: 4.3 x 2.7 x 3.1 cm, volume 18.3 mL. ?? ? Nodule characteristics: ?? ? Composition: Solid (2). ?? ? Echogenicity: Isoechoic (1). ?? ? Shape: Not taller than wide (0). ?? ? Margins: Ill-defined (0). ?? ? Echogenic Foci: Macrocalcifications (1). ?? ? ACR TI-RADS total points: 4. ?? ? ACR TI-RADS category: 4. NODES: No lymphadenopathy is seen in the tissue surrounding the thyroid gland. ADDITIONAL FINDINGS: There is isoechoic to hypoechoic lesion inferior to right thyroid lobe with minimal vascularity measuring 1.0 x 0.5 x 0.6 cm. Labs: Laboratory Tests 01/21/23 11:30 TSH 0.64 Status post total thyroidectomy with benign pathology.Thyroidectomy 10/21. Currently not taking 112 mcg Tirosint as directed ll as calcitriol 0.25 ug QD. Also on calcium citrate and vitamin D3 630 mg b.i.d. calcium and vitamin-D 500 IU twice a day The patient is a 30-year-old female presenting with hypothyroidism and hypocalcemia. The patient has a history of hypothyroidism and has been prescribed Tirosint which she has not taken for a while due to prescription issues and life circumstances such as job changes. She was unable to get the medication without a prescription renewal, which was complicated by her inability to attend appointments. The lack of medication has led to symptoms such as fatigue, constipation, and bloating, with the potential risk of severe complications if untreated. The patient also reports hypocalcemia, which has not been managed due to similar issues with medication adherence. She experiences muscle spasms and weakness, particularly in her hands, which are indicative of low calcium levels. The patient has not been taking calcium or vitamin D supplements, which are crucial for managing her condition. [facility] Medical History (Updated 10/06/24 @ 10:08 by Birgit Head CNM) FH: breast cancer in first degree relative Hypoparathyroidism Post-operative hypothyroidism Renal calculi Female bladder prolapse Mediastinal mass HLD (hyperlipidemia) Vitamin D deficiency Multinodular thyroid Corpus luteum cyst of right ovary Anxiety Asthma Depression GERD (gastroesophageal reflux disease) Surgical History History of thyroid surgery Hx laparoscopic cholecystectomy (~07/03/23) Family History Mother Diabetes HTN (hypertension) Early menopause Father Diabetes Maternal Aunt Thyroid disease Paternal Grandmother Ovarian cancer Other Colon cancer History of breast cancer Social History Household Members: Family Household Members Other:: father & minor child Housing: House Are you a primary daycare assistant to a significant other at home: Yes Do you presently have visiting nurse or other home services: No Alcohol intake: current Alcohol intake frequency: does not drink Patient Tobacco Use Status: Current someday Tobacco user Tobacco use type: Cigarette Cigarettes Per Day: 4 Years Smoked: 12 Substance Use Type: Marijuana Current occupational status: employed 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 There is a negative Chvostek sign and Trousseau's sign Assessment & Plan Assessment & Plan (1) Multinodular thyroid: Comment: scheduled for partial thyroidectomy 10/2023 @ [facility] Code(s): E04.2 - Nontoxic multinodular goiter Category: Medical Plan: This is a 30-year-old white female status post thyroidectomy who is currently on Tirsint 112 ug . She has been noncompliant with theTiroswint and has not taken it for weeks Plan is to resume theTirosint 112 mcg and recheck TSH and free T4 in 6 weeks' time. Patient wanted to take thyroid medicine consistently the dangers of not taking it including symptoms of hypothyroidism and in severe cases myxedema coma and 1. Hypothyroidism The patient has not been taking her prescribed Tyrosine due to prescription renewal issues and life circumstances. It is crucial to resume medication to prevent severe complications such as fatigue, constipation, and bloating. The plan includes renewing the prescription and ensuring medication adherence. I discussed with the patient the importance of adhering to her medication regimen, particularly for her hypothyroidism and hypocalcemia, to prevent severe complications. We talked about the risks of not taking her medications, including potential life-threatening conditions. I emphasized the need for regular follow-up and lab tests to monitor her condition and adjust treatment as necessary. We also discussed the possibility of emergency intervention if her calcium levels are critically low. - Resume taking Tirosint as prescribed to manage hypothyroidism. - Start taking calcium and vitamin D supplements to address hypocalcemia. - Follow up with lab tests in four to six weeks to monitor calcium levels. - Seek emergency care if experiencing severe symptoms such as muscle spasms or weakness. (2) Hypoparathyroidism: Code(s): E20.9 - Hypoparathyroidism, unspecified Category: Medical Plan: Currently on calcium and calcitriol 0.25 mcg q.d. We will check calcium, albumin, phosphorus as well as 24 hour urine for calcium and creatinine in about 6 weeks' time. Went over Yorvipath but would be concerned considering patient's compliance with the levothyroxine and appointments 2. Hypocalcemia The patient reports symptoms of muscle spasms and weakness due to not taking calcium and vitamin D supplements. Immediate action involves checking calcium levels and resuming supplementation. If levels are critically low, an emergency intervention may be necessary. (3) Post-operative hypothyroidism: Code(s): E89.0 - Postprocedural hypothyroidism Category: Medical Plan: Plan as above Orders: Orders Phosphorus Today E04.2 - Nontoxic multinodular goiter, E20.9 - Hypoparathyroidism, unspecified Albumin Level 6 Weeks E20.9 - Hypoparathyroidism, unspecified Calcium 6 Weeks E20.9 - Hypoparathyroidism, unspecified Medications: Refilled calcitriol 0.25 mcg PO DAILY 30 caps 5RF calcium citrate-vitamin D3 315 mg-6.25 mcg (250 unit) (Citracal + Vitamin D Maximum) 2 tabs PO BID 120 tabs 5RF 30 days calcium citrate 200 mg PO DAILY 30 tabs 4RF Tirosint (levothyroxine) 112 mcg PO DAILY 30 caps 5RF NS Coding Level of Care Code Est Pt Level 3 (26671) Diagnoses Multinodular thyroid E04.2 Hypoparathyroidism E20.9 Post-operative hypothyroidism E89.0
[2025-06-28 09:42] VITALS: BP 98/78; PULSE 70; O2SAT 96; BMI 40.4
--- OUTSIDE RECORDS SUMMARY | 2025-06-28 10:55 | XMS_ITS | Patient Health Record ---
Author Organization [facility] Address [address] [place] [address] Care Team Providers Care Joy Operator Helper Name Role Phone Emma (RETIRED) Efraín DIXON Primary Care Provide r Xiang Reynoso Unavailable [phone] Allergies Allergen (clinical drug ingredient) Drug/Non Drug Allergy documented on EMR Reaction Allergy Type Onset Date Status Influenza Vac High-Dose Quad Unknown Drug Allergy Active Latex Latex Unknown Allergy Active cortisone Cortisone Unknown Drug Allergy Active Reason For Referral No Information Medications Medication SIG (Take, Route, Frequency, Duration) Notes Start Date End Date Status Calcium Citrate + D3 Maximum 315-6.25 MG-MCG Oral for 90 Days Active Ezetimibe 10 MG Oral for 90 Days Active Omeprazole 20 MG 1 capsule 30 minutes before morning meal Orally Once a day Just prn Active Atorvastatin Calcium 20 MG TAKE 1 TABLET BY MOUTH DAILY Oral for 90 Active Hyoscyamine Sulfate 0.125 MG 1-2 tabs Sublingual Use every 4 to 6 hours if needed for abdominal cramps/discomfort for 30 days prn Active Tirosint 112 MCG Oral for 30 Days Active Immunizations Vaccine Route Administration Date Status Comme nts Influenza Unknown 03/04/2024 Refused Social History Tobacco Use: Social History Observation Description Date Details (start date - stop date) Former Smoker NA - NA Tobacco Use/Smoking Question Answer Notes Patient is a former smoker Alcohol Screen Question Answer Notes Did you have a drink containing alcohol in the p ast year? No Points 0 Interpretation Negative Section Notes: Smokes Marijuana and occasio nal cigarettes, No alcohol Smokes Marijuana and occasio nal cigarettes, No alcohol Smokes Marijuana and occasio nal cigarettes, No alcohol Problems Problem Type SNOMED Code ICD Code Onset Dates Problem Status W/U Status Risk Notes Problem 72857020 Calculus of gallbladder without cholecystitis without obstruction (K80.20) Active confirmed Problem Gastroesophageal reflux disease without esophagitis (172531093) Gastroesophageal reflux disease without esophagitis (K21.9) Active confirmed Problem Fatty liver (479541067) Fatty liver (K76.0) Active confirmed Problem 429786825 Abdominal pain, right upper quadrant (R10.11) Active confirmed Problem 41288126 Irritable bowel syndrome with both constipation and diarrhea (K58.2) Active confirmed Problem 500922530 Gastroesophageal reflux disease, unspecified whether esophagitis present (K21.9) Active confirmed Vital Signs Blood pressure diastolic 77 mm Hg 03/03/2025 Height 64.25 in 03/03/2025 Blood pressure systolic 111 mm Hg 03/03/2025 Weight 222 lbs 03/03/2025 BMI 37.81 kg/m2 03/03/2025 Encounters Encounter Location Date Provider Diagnosis [facility] [address] [place] [address] 03/03/2025 Xiang Nelson Gastroesophageal ref lux disease, unspecified whether esophagitis present K21.9 ; Irritable bowel syndrome with both constipation and diarrhea K58.2 and Fatty liver K76.0 Assessments Encounter Date Diagnosis (ICD Code) Assessment Notes Treatment Notes Treatment Clinical Notes Section Notes 03/03/2025 Gastroesophageal reflux disease, unspecified whether esophagitis present (ICD-10 - K21.9) Continue omeprazole and antacids as needed for reflux/heartb urn Overall, Damien appears well from a clinical standpoint. However, she is frustrated and somewhat discouraged about her weight gain. She is definitely aware of how this adversely affects her overall health and specifically worsens her gastroesophageal reflux. She is definitely interested in trying to find out healthier ways to eat and to try to lose weight. In regard to her reflux I did advise her to continue her daily omeprazole and antacids as needed. She will continue to try to watch her diet carefully and to lose weight again. I do not think she requires any further upper endoscopies given the results in 2022. Her irritable bowel syndrome seems to be stable at the present time in regard to her bowel movement habits and abdominal discomfort. I did give her a refill on her hyoscyamine today to use for abdominal cramps as needed. In regard to the history of fatty liver I will repeat laboratories given her recent significant weight gain. I did advise her that she should look into getting a referral to the [facility] bariatric surgery department so she can at least meet with a sales communications manager and try to lose the weight in that manner. If things are otherwise stable I will plan to see Damien in 1 year for a follow-up visit. She was comfortable with this plan. Thank you again for allowing me to participate in Damien's care. I shall continue to keep you advised of her progress. 03/03/2025 Irritable bowel syndrome with both constipation and diarrhea (ICD-10 - K58.2) Continue Hyoscyamine as needed for the IBS and abdominal cramps Overall, Damien appears well from a clinical standpoint. However, she is frustrated and somewhat discouraged about her weight gain. She is definitely aware of how this adversely affects her overall health and specifically worsens her gastroesophageal reflux. She is definitely interested in trying to find out healthier ways to eat and to try to lose weight. In regard to her reflux I did advise her to continue her daily omeprazole and antacids as needed. She will continue to try to watch her diet carefully and to lose weight again. I do not think she requires any further upper endoscopies given the results in 2022. Her irritable bowel syndrome seems to be stable at the present time in regard to her bowel movement habits and abdominal discomfort. I did give her a refill on her hyoscyamine today to use for abdominal cramps as needed. In regard to the history of fatty liver I will repeat laboratories given her recent significant weight gain. I did advise her that she should look into getting a referral to the [facility] bariatric surgery department so she can at least meet with a sales communications manager and try to lose the weight in that manner. If things are otherwise stable I will plan to see Damien in 1 year for a follow-up visit. She was comfortable with this plan. Thank you again for allowing me to participate in Damien's care. I shall continue to keep you advised of her progress. 03/03/2025 Fatty liver (ICD-10 - K76.0) Overall, Damien appears well from a clinical standpoint. However, she is frustrated and somewhat discouraged about her weight gain. She is definitely aware of how this adversely affects her overall health and specifically worsens her gastroesophageal reflux. She is definitely interested in trying to find out healthier ways to eat and to try to lose weight. In regard to her reflux I did advise her to continue her daily omeprazole and antacids as needed. She will continue to try to watch her diet carefully and to lose weight again. I do not think she requires any further upper endoscopies given the results in 2022. Her irritable bowel syndrome seems to be stable at the present time in regard to her bowel movement habits and abdominal discomfort. I did give her a refill on her hyoscyamine today to use for abdominal cramps as needed. In regard to the history of fatty liver I will repeat laboratories given her recent significant weight gain. I did advise her that she should look into getting a referral to the [facility] bariatric surgery department so she can at least meet with a sales communications manager and try to lose the weight in that manner. If things are otherwise stable I will plan to see Damien in 1 year for a follow-up visit. She was comfortable with this plan. Thank you again for allowing me to participate in Damein's care. I shall continue to keep you advised of her progress. Plan Of Treatment Pending Test Test Name Order Date LIVER PROFILE 06/11/2023 LIVER PROFILE 03/03/2025 CRP 06/11/2023 CBC w DIFF 06/11/2023 CBC w DIFF 03/03/2025 SED RATE (ESR) 06/11/2023 Prothrombin Time INR 03/03/2025 Liver Fibrosis Pnl 03/03/2025 Celiac Panel 10 06/11/2023 US abdomen complete 06/11/2023 Future Test Test Name Order Date UPPER GI ENDOSCOPY 06/11/2023 Next Appt Details Provider Name:Xiang Nelson , 03/09/2026 03:40:00 PM, [address], [address], [place], [address], Insurance Providers Payer Name Payer Address Payer Phone Subscriber Number Group Number Insured Name Patient Relationship to Insured Coverage Start Date Coverage End Date [facility] [address] [address] [place], [place] [phone] [id number] NATE Allen DAMIEN Self - patient is the insured MEDICAID OF [employer] [address] [place] [address] [id number] DAMIEN CASILLAS Self - patient is the insured Medical (General) History Medical History History ICD Code Anxiety IBS Asthma Kidney stones Enlarged thyroid with nodules--had full thyroidectomy at [facility] in 10/2023 Hyperlipidemia UTI's Having an ETT with Dr. Katherine Morenoies HI,DM,CVA,renal disease GERD--Upper endoscopy in Sep revealed a small hiatal hernia but was otherwise unremarkable. Duodenal biopsies negative for celiac disease, gastric biopsies were negative for H. pylori, and biopsies from the gastroesophageal junction were negative for Luna's esophagus Fatty liver seen on abdomina l ultrasound in 2022. She did have normal LFTs at that time. Surgical History Surgery Date(Month/Year) CCY- 2022-Dr. Kincaid Complete Thyroidectomy-2023 at [facility]
== END 2025-06-28 10:20 | disposition home or self-care (01) ==
LOC: HO.ENCR 09:36
PROVIDERS: PCP Internal Medicine; Visit Provider Internal Medicine Endocrinology, Diabetes & Metabolism
DX: E04.2 Nontoxic multinodular goiter (principal); E20.9 Hypoparathyroidism, unspecified; E89.0 Postprocedural hypothyroidism
CPT/HCPCS: 99213

== ENCOUNTER → 2025-06-28 09:35 | Outpatient (BNVA) | payer OTHER, SELFPAY | PROVIDERS: PCP Internal Medicine; Visit Provider Internal Medicine Endocrinology, Diabetes & Metabolism | DX: E04.2 Nontoxic multinodular goiter (principal) | CPT/HCPCS: 99212 ==

== ENCOUNTER 2025-06-28 10:27 | Outpatient (REF) | payer OTHER, SELFPAY ==
[2025-06-28 13:35] LABS: Albumin Level 3.6 g/dL (3.5-5.0); Calcium 8.4 mg/dL (8.4-10.2)
== END 2025-06-28 10:28 | disposition home or self-care (01) ==
LOC: HO.10HDL 10:27
PROVIDERS: Visit Provider Internal Medicine Endocrinology, Diabetes & Metabolism
DX: E04.2 Nontoxic multinodular goiter (principal); E20.9 Hypoparathyroidism, unspecified
CPT/HCPCS: 36415; 82040; 82310; 84100

== ENCOUNTER 2025-07-09 15:40 | Outpatient (AMB) | payer OTHER, SELFPAY ==
--- NOTE | 2025-07-09 15:47 | A.OFFPC_ITS ---
Vital Signs 07/09/25 15:54 Height 5 ft 4 in Weight 231 lb 6 oz BMI 39.7 BP 116/72 Blood Pressure Location Rt brachial Position Sitting Respiration 15 Pulse 84 Pulse Source Pulse Oximeter Temp 97.8 F Temp Source Temporal Artery Scan Pulse Oximetry (%) 98 Oxygen Delivery Method Room Air Intake Visit Reasons: New patient Intake Note: Triny presents in the office today to establish care. Telecommunication Operator Required: No Allergies cortisone Allergy (Intermediate, Verified 07/09/25 15:49) from cream-Rx for rash & rash spread (childhood) Influenza Virus Vaccines Allergy (Intermediate, Verified 07/09/25 15:49) Hives latex Allergy (Intermediate, Verified 07/09/25 15:49) Rash doxycycline Adverse Reaction (Unknown, Verified 07/09/25 15:49) Vomiting Tobacco use date assessed: 07/09/25 Dental Screening Dental Screen Date: 07/09/25 Did you have a dental visit in the last 12 months?: Yes Did you have a dental problem in the last 6 months where you did not have access to dental care?: No Was dental information given to patient?: Patient has dentist HPI HPI Comments History of Present Illness Details The patient is a 30 year old female with a past medical history of hyperlipidemia, hypoparathyroid, hypothyroid, renal calculi, bladder prolapse, anxiety/depression, GERD presenting to establish are CV: on lipitor, zetia. Has seen [facility] cardiology, has stress testing Endocrine: HypoPTH, hypothyroid followed by endocrinology. History of thyroid nodules. They are monitoring. continues tirosint, calcitriol, calcium & vitamin D. patient endorse neck clicking, discomfort-lateral anterior neck, difficulty breathing intermittently when supine that improves with rotation of the neck GERD: on omeprazole Anxiety/depression: Follows with a therapist. Reports stable Follows with picker and packer at [facility] CONSTITUTIONAL: Denies weight loss, fever and chills. HEENT: Denies changes in vision and hearing. see HPI RESPIRATORY: Denies SOB and cough. CV: Denies palpitations and CP GI: Denies abdominal pain, nausea, vomiting and diarrhea. : Denies dysuria and urinary frequency. MSK: see HPI SKIN: Denies rash and pruritus. NEUROLOGICAL: Denies headache PSYCHIATRIC: Denies recent changes in mood. PHYSICAL EXAM: GENERAL: Alert and oriented x 3. NAD EYES: EOMI. Anicteric. HENT: Moist mucous membranes. No scleral icterus. No cervical lymphadenopathy. LUNGS: Clear to auscultation bilaterally. CARDIOVASCULAR: Regular rate and rhythm. No murmur. No JVD. ABDOMEN: Soft, non-tender +bs EXTREMITIES: No edema. Non-tender. SKIN: No rashes or lesions. Warm. NEUROLOGIC: No focal neurological deficits. CN II-XII grossly intact PSYCHIATRIC: Cooperative. Appropriate mood and affect [facility] Medical History FH: breast cancer in first degree relative Hypoparathyroidism Post-operative hypothyroidism Renal calculi Female bladder prolapse Mediastinal mass HLD (hyperlipidemia) Vitamin D deficiency Multinodular thyroid Corpus luteum cyst of right ovary Anxiety Asthma Depression GERD (gastroesophageal reflux disease) Surgical History History of thyroid surgery Hx laparoscopic cholecystectomy (~07/03/23) Family History Mother Diabetes HTN (hypertension) Early menopause FH: mental illness Bipolar 1 disorder Disassociation disorder ADD (attention deficit disorder) Depression with anxiety ADHD Father Diabetes FH: mental illness ADD (attention deficit disorder) Depression with anxiety ADHD Maternal Aunt Thyroid disease Paternal Grandmother Ovarian cancer Other Colon cancer History of breast cancer Social History Household Members: Family Household Members Other:: father & minor child Housing: House Are you a primary healthcare corporate account director to a significant other at home: Yes Do you presently have visiting nurse or other home services: No Alcohol intake: current Alcohol intake frequency: does not drink Patient Tobacco Use Status: Current someday Tobacco user Tobacco use type: Cigarette Cigarettes Per Day: 4 Years Smoked: 12 e-Cigarette/Vaping Use: Currently Using Second Hand Smoke Exposure: No Substance Use Type: Marijuana service: No Current occupational status: employed 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 1. Little interest or pleasure in doing things: not at all 2. Feeling down, depressed, or hopeless: several days 3. Trouble falling or staying asleep, or sleeping too much: several days 4. Feeling tired or having little energy: more than half the days 5. Poor appetite or overeating: more than half the days 6. Feeling bad about yourself - or that you are a failure or have let yourself or your family down: several days 7. Trouble concentrating on things, such as reading the newspaper or watching television: several days 8. Moving or speaking so slowly that other people could have noticed. Or the opposite - being so fidgety or restless that you have been moving around a lot more than usual: more than half the days 9. Thoughts that you would be better off or of hurting yourself in some way: not at all Total score: 10 Depression Screening Interpretation: Positive Depression Screening Follow-up: Existing condition Depression Screening Done: Yes 64429 - PHQ-9 Billing: Yes Source: Developed by Drs. Xiang Estrella, Zakia Rodriguez, Miguel Fonseca and colleagues, with an educational nishant from [employer] Thrive Questionnaire I am a: Patient What is your living situation today?: I have a steady place to live Within the past 12 months, did the food you bought not last and you didn't have the money to get more?: Sometimes True Within the past 12 months, did you worry whether your food would run out before you got money to buy more?: Sometimes True Do you have trouble paying for medicines?: No Do you have trouble getting transportation to medical appointments?: No Do you have trouble paying your heating and electricity bill?: No Do you have trouble taking care of your child, family member or friend?: No Do you have trouble with day-to-day activities such as bathing, preparing meals, shopping, managing finances, etc.?: No Are you currently unemployed and looking for a job?: No Are you interested in more education?: No Please select the resources that you would like help with: Job search/training Currently or been in a relationship where the following occur: I choose not to answer THRIVE Score: 2 AUDIT C Alcohol Use Questionnaire (AUDIT-C) 1. How often do you have a drink containing alcohol?: Never 3. How often do you have six or more drinks on one occasion?: Never Total Score: 0 BUZZ-7 AMB Questionnaire BUZZ-7 Date BUZZ - 7 assessed: 07/09/25 Feeling nervous, anxious, or on edge: 1 = Several days Not being able to stop or control worryin = Several days Worrying too much about different things: 1 = Several days Trouble relaxin = Several days Being so restless that it is hard to sit still: 1 = Several days Becoming easily annoyed or irritable: 2 = More than half the days Feeling afraid as if something awful might happen: 0 = Not at all Total BUZZ-7 score (0-4 normal; 5-9 mild; 10-14 moderate; 15-21 severe): 7 Source: Developed by Drs. Xiang Estrella, Zakia Rodriguez, Miguel Fonseca and colleagues, with an educational nishant from [employer] BUZZ-7 Assessment Billing BUZZ-7 Assessment Tool: BUZZ-7 Assessment 61111 Physical exam (Primary Care) Vital Signs: Last Vital Signs Temp 97.8 F 07/09/25 15:54 Pulse 84 07/09/25 15:54 Resp 15 07/09/25 15:54 BP 116/72 07/09/25 15:54 Pulse Ox 98 07/09/25 15:54 Oxygen Delivery Method Room Air 07/09/25 15:54 BMI result Body Mass Index 39.7 Tobacco/Smoking Status: Tobacco use Status Tobacco use date assessed 07/09/25 07/09/25 15:54 Patient Tobacco Use Status Current someday Tobacco 07/09/25 15:54 Tobacco use type Cigarette 07/09/25 15:54 e-Cigarette/Vaping Use Currently Using 07/09/25 15:54 PHQ-9: PHQ-9 Score PHQ-9: Total score 10 07/09/25 15:54 Depression Screening Interpretation: Positive Depression Screening Follow-up: Existing condition Currently or been in a relationship where the following occur: I choose not to answer Coding Level of Care Code New Pt Level 4 (89531) Diagnoses Multinodular thyroid E04.2 Hypoparathyroidism, unspecified hypoparathyroidism type E20.9 Hypoparathyroidism type: unspecified Hyperlipidemia, unspecified hyperlipidemia type E78.5 Hyperlipidemia type: unspecified Additional Codes BUZZ-7 Assessment Billing - BUZZ-7 Assessment Tool: BUZZ-7 Assessment 60750 ([id number]) PHQ-9 - 28065 - PHQ-9 Billing: Yes ([id number]) Assessment & Plan Assessment & Plan (1) Multinodular thyroid: Comment[place] [facility] [place] [facility] [place] endocrine Code(s): E04.2 - Nontoxic multinodular goiter Category: Medical (2) Hypoparathyroidism: Code(s): E20.9 - Hypoparathyroidism, unspecified Category: Medical Qualifiers: Hypoparathyroidism type: unspecified Qualified Code(s): E20.9 - Hypoparathyroidism, unspecified (3) HLD (hyperlipidemia): Code(s): E78.5 - Hyperlipidemia, unspecified Category: Medical Qualifiers: Hyperlipidemia type: unspecified Qualified Code(s): E78.5 - Hyperlipidemia, unspecified Plan 30 year old to establish care past medical, surgical, social reviewed Anxiety/depression stable on meds HypoPTH, hypothyroid-continue endocrine follow up Neck clicking pain-xr ordered. consider CT Orders: Orders Complete Blood Count Auto Diff 07/09/25 E20.9 - Hypoparathyroidism, unspecified, E55.9 - Vitamin D deficiency, unspecified, E78.5 - Hyperlipidemia, unspecified, R35.89 - Other polyuria, Z13.0 - Encounter for screening for diseases of the blood and blood-forming organs and certain disorders involving the immune mechanism Comprehensive Met. Panel 07/09/25 E20.9 - Hypoparathyroidism, unspecified, E55.9 - Vitamin D deficiency, unspecified, E78.5 - Hyperlipidemia, unspecified, R35.89 - Other polyuria, Z13.0 - Encounter for screening for diseases of the blood and blood-forming organs and certain disorders involving the immune mechanism Lipid Panel 07/09/25 E20.9 - Hypoparathyroidism, unspecified, E55.9 - Vitamin D deficiency, unspecified, E78.5 - Hyperlipidemia, unspecified, R35.89 - Other polyuria, Z13.0 - Encounter for screening for diseases of the blood and blood- forming organs and certain disorders involving the immune mechanism Vitamin B12 and Folate 07/09/25 E20.9 - Hypoparathyroidism, unspecified, E55.9 - Vitamin D deficiency, unspecified, E78.5 - Hyperlipidemia, unspecified, R35.89 - Other polyuria, Z13.0 - Encounter for screening for diseases of the blood and blood-forming organs and certain disorders involving the immune mechanism XR cervical spine 4V 07/09/25 M54.2 - Cervicalgia Hemoglobin A1c 07/09/25 E20.9 - Hypoparathyroidism, unspecified, E55.9 - Vitamin D deficiency, unspecified, E78.5 - Hyperlipidemia, unspecified, R35.89 - Other polyuria, Z13.0 - Encounter for screening for diseases of the blood and blood-forming organs and certain disorders involving the immune mechanism Medications: Refilled omeprazole 20 mg PO DAILY 90 caps 3RF
[2025-07-09 15:54] VITALS: BP 116/72; PULSE 84; RESP 15; TEMP 36.6; O2SAT 98; BMI 39.7
== END 2025-07-09 16:11 | disposition home or self-care (01) ==
LOC: HO.HMCFM 15:41
PROVIDERS: PCP Internal Medicine; Visit Provider Internal Medicine
DX: E04.2 Nontoxic multinodular goiter (principal); E20.9 Hypoparathyroidism, unspecified; E78.5 Hyperlipidemia, unspecified

== ENCOUNTER → 2025-07-09 15:40 | Outpatient (BNVA) | payer OTHER, SELFPAY | PROVIDERS: PCP Internal Medicine; Visit Provider Internal Medicine | DX: Z76.89 Persons encountering health services in other specified circumstances (principal); E04.2 Nontoxic multinodular goiter; E20.9 Hypoparathyroidism, unspecified; E78.5 Hyperlipidemia, unspecified; K21.9 Gastro-esophageal reflux disease without esophagitis; Z79.899 Other long term (current) drug therapy; Z13.31 Encounter for screening for depression; Z13.39 Encounter for screening examination for other mental health and behavioral disorders | CPT/HCPCS: 96127; 99202 ==